=== PATIENT | male | born 1945 | race Caucasian/White ===

== ENCOUNTER 2017-01-14 11:51 | Outpatient (CLI) | payer MEDICARE, OTHER ==
[~2017-01-14] VITALS: Ht 182.9 cm; Wt 101.6 kg
[~2017-01-14 11:51] MED LIST: ALBU17AE23 IH; ALPR0.5T PO; ALPR1TAB PO; BUDE6HFA IH; CALC-250 PO; CARB1TAB6 PO; CETI5TAB6 PO; D50KC PO; DOXY100C2 PO; FELO10TA31 PO; FLC1T PO; GABA300C PO; GEMF600T PO; GFN600TCR PO; HYDR-2890 PO; HYDR-3720 PO; LEVE500T6 PO; LEVO75TA57 PO; LOVA10TA PO; LSNP10T PO; NFPRILOC40 PO; OMEP-10 PO; RISP0.5T2 PO; RSP.25T PO; RSP1T PO; SERT50TA PO; SRTR100T PO
[2017-01-14] MEDS ORDERED: PRAV10TA PO (12:11)
[2017-01-14] MEDS ORDERED: LEVE750T5 PO (12:11)
[2017-01-14 12:12] VITALS: BP 122/82
== END 2017-01-14 12:25 | disposition home or self-care (01) ==
LOC: PREOP 11:51
PROVIDERS: ATTEND Surgery
DX: Z01.818 Encounter for other preprocedural examination (principal); Z11.2 Encounter for screening for other bacterial diseases; C44.529 Squamous cell carcinoma of skin of other part of trunk
CPT/HCPCS: 87081

== ENCOUNTER 2017-01-16 07:52 | Day surgery (SDC) | payer MEDICARE, OTHER ==
[~2017-01-16] VITALS: Ht 182.9 cm; Wt 101.6 kg
[~2017-01-16 07:52] MED LIST changes: +LEVE750T5 PO; +PRAV10TA PO
[2017-01-16] MEDS ORDERED: ceFAZolin 2 GM/50 ML NS 50 ML ONE (08:03)
[2017-01-16] MEDS ORDERED: ceFAZolin 2 GM/NS 50 ML IV ONE (08:15)
[2017-01-16] MEDS ORDERED: CATHETER FLUSH 10 ML SYR IV PRN (08:15)
[2017-01-16 08:23] VITALS: BP 167/101
[2017-01-16] MEDS ORDERED: BUP/EPI 0.5% 1:200,000 (MARCAINE) 10ML VIAL IJ ONE (08:24)
[2017-01-16] MEDS: LACTATED RINGERS 1,000 ML IV PRN ×2 (08:42→10:24)
[2017-01-16] MEDS ORDERED: FAMOTIDINE 20MG/2ML IV (PEPCID) IV ONE (08:45)
--- NOTE | 2017-01-16 09:01 | Progress Note-Pre Operative ---
Pre-Operative Progress Note H&P Reviewed The H&P was reviewed, patient examined and no changes noted. 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
[2017-01-16] MEDS ORDERED: MIDAZOLAM 2 MG/2 ML (VERSED) VIAL ONE (09:15)
[2017-01-16] MEDS ORDERED: fentaNYL INJECTION 100 MCG/2 ML AMP ONE (09:15)
[2017-01-16] MEDS ORDERED: LACTATED RINGERS 1,000 ML IV ONE (09:56)
[2017-01-16] MEDS ORDERED: PROPOFOL INJECTION 50 ML IV ONE (09:56)
[2017-01-16] MEDS ORDERED: proPOfol 200 MG/20 ML (DIPRIVAN) VIAL IV ONE (09:56)
[2017-01-16] MEDS ORDERED: morphine INJ 10 MG/ML 1ML (SYR OR VIAL) IVP PRN (10:00)
[2017-01-16] MEDS ORDERED: MEPERIDINE (DEMEROL) INJ 50 MG/ML IVP PRN (10:00)
[2017-01-16] MEDS ORDERED: ONDANSETRON 4 MG/2 ML (SDV) Z0FRAN IVP PRN (10:00)
[2017-01-16 10:50] VITALS: BP 151/99
--- NOTE | 2017-01-16 10:50 | Operative Report ---
Operative Report Date of Procedure/Surgery Jan 16, 2017 Surgeon (s) NICHOLE NEVES MD Marina Manager (s): not applicable Post-Operative Diagnosis 1.invasive squamous cell carcinoma chest wall 2. 1 cm lesion left ear Procedure Performed 1.excision of lesion left ear 2. Excision of invasive squamous cell carcinoma chest wall with frozen section Description of Procedure Anesthesia Type: MAC Estimated blood loss (mL): minimal Specimen(s) collected/removed skin lesion, left ear. Squamous cell carcinoma from chest wall Description of the Procedure Indication for procedure: Punch biopsy of a 3 cm lesion over his anterior chest wall was confirmed to be an in situ squamous cell carcinoma. He was offered formal excision with frozen section to rule out invasive tumor and ensure negative margins. During the immediate preoperative evaluation, the patient requested excision of a recurrent lesion over the left ear, concerning for a basal cell carcinoma. I agreed to do so. Informed consent was obtained after reviewing the procedures and complications of hematoma, postoperative wound infection and local recurrence. Description of the procedures: 1. Excision of lesion left ear: After adequate antiseptic preparation, local anesthesia was achieved using 0.25 percent Marcaine with epinephrine. Our BREWING TECHNICIAN administered sedation as well. Ancef was administered intravenously as prophylaxis against wound infection. An elliptical incision 2 cm long by 1/2 cm wide was made and the lesion excised. It was oriented with silk sutures and sent for formal histologic examination. Hemostasis was achieved using cautery and the defect closed using interrupted 6-0 nylon sutures. A nonadherent dressing was then applied. 2. Excision of squamous cell carcinoma left chest wall with frozen section: Local anesthesia was achieved in a similar fashion. An elliptical incision, 7 cm long by 4 cm wide was made and the lesion excised to the subcutaneous tissue. It was oriented with silk sutures and sent for histologic examination. Pathologist confirmed an invasive squamous cell carcinoma with negative margins. The edges of the incision were then closed using a combination of 5-0 nylon in a continuous fashion and interrupted 4-0 nylon at the center. A nonadherent dressing was then applied. He tolerated both procedures well and was taken back to the nursing area in a stable condition. Ripley, sponges and instruments were correct at the end of the operation Findings of the Procedure please read the operative report Allergies and Home Medications Allergies Coded Allergies: No Known Drug Allergies (Unverified , 08/19/11) Home Medications Albuterol 17 Gm Aerosol, 17 GM IH PRN, (Reported) Alprazolam 1 Mg Tab.sr.24h, 1 MG PO DAILY, (Reported) Alprazolam 0.5 Mg Tablet, 0.5 MG PO 1200, (Reported) Budesonide/Formoterol Fumarate 10.2 Gm Hfa.aer.ad, 10.2 GM IH 2 puffs in am, ( Reported) Calcium Carbonate/Vitamin D3 1 Each Tablet, 1 EACH PO DAILY, (Reported) Carbidopa/Levodopa 1 Each Tablet, 1 EACH PO QID, (Reported) Cetirizine Hcl 5 Mg Tablet, 5 MG PO DAILY PRN for SINUS ALLERGIES, (Reported) Ergocalciferol 50,000 Unit Capsule, 50,000 UNIT PO Q 4 DAYS, (Reported) Felodipine 10 Mg Tab.sr.24h, 10 MG PO DAILY, (Reported) Folic Acid 1 Mg Tab, 1 MG PO DAILY, (Reported) Gemfibrozil 600 Mg Tablet, 600 MG PO BID, (Reported) Guaifenesin 600 Mg Tab, 600 MG PO BID PRN for CONGESTION, (Reported) Hydrocodone Bit/Acetaminophen 1 Each Tablet, 1 EACH PO Q6HR PRN, (Reported) Levetiracetam 750 Mg Tablet, 750 MG PO BID, (Reported) Levothyroxine Sodium 75 Mcg Tablet, 112 MCG PO DAILY, (Reported) Lisinopril 10 Mg Tab, 10 MG PO DAILY, (Reported) Omeprazole 40 Mg Capsule.dr, 40 MG PO DAILY, (Reported) Pravastatin Sodium 10 Mg Tablet, 10 MG PO HS, (Reported) Risperidone 0.5 Mg Tablet, 1.5 MG PO BID, (Reported) Sertraline Hcl 50 Mg Tablet, 50 MG PO BID, (Reported) Sertraline Hcl 100 Mg Tab, 100 MG PO BID, (Reported) NICHOLE NEVES MD Jan 16, 2017 10:50 am
[2017-01-16] MEDS ORDERED: HYDR-3820 PO (10:52)
--- NOTE | 2017-01-16 10:53 | Discharge Inst-Simple/Standard ---
Discharge Inst-Standard Discharge Medications New, Converted or Re-Newed RX: RX on Chart Patient Instructions/Follow Up Plan of Care/Instructions/FU: outer dressing off in 48 hours. Steri-Strips to stay. Follow-up with my nurse in 2 weeks for suture removal Activity as Tolerated: Yes Discharge Diet: No Restrictions NICHOLE NEVES MD Jan 16, 2017 10:53 am
[2017-01-16 11:20] VITALS: BP 167/99
[2017-01-16 11:50] VITALS: BP 167/99
== END 2017-01-16 11:50 | disposition home or self-care (01) ==
LOC: SDC 07:52
PROVIDERS: ATTEND Surgery
DX: C44.529 Squamous cell carcinoma of skin of other part of trunk (principal); L57.0 Actinic keratosis; L99 Other disorders of skin and subcutaneous tissue in diseases classified elsewhere; F17.210 Nicotine dependence, cigarettes, uncomplicated; J44.9 Chronic obstructive pulmonary disease, unspecified; G20 Parkinson's disease; Z86.73 Personal history of transient ischemic attack (TIA), and cerebral infarction without residual deficits; K44.9 Diaphragmatic hernia without obstruction or gangrene; K21.9 Gastro-esophageal reflux disease without esophagitis; Z79.899 Other long term (current) drug therapy
CPT/HCPCS: 88305; 88331; 88332

== ENCOUNTER → 2017-09-27 | Outpatient (CLI) | payer MEDICARE, OTHER ==
[~2017-09-27] MED LIST changes: +HYDR-3820 PO
--- NOTE | 2017-09-27 12:08 | Diagnostic Imaging Report ---
INDICATION: Cough. TIME OF EXAMINATION: 12:40 p.m. COMPARISON: Comparison is made with prior study from 08/19/2011. FINDINGS: The lungs are hyperinflated consistent with COPD. The heart size is normal. No infiltrate, effusion or pneumothorax is detected. IMPRESSION: COPD. No acute features detected. Dictated by: Dictated on workstation # [id number]
== END ==
LOC: RAD 11:30
PROVIDERS: ATTEND Internal Medicine
DX: J44.9 Chronic obstructive pulmonary disease, unspecified (principal)
CPT/HCPCS: 71046

== ENCOUNTER 2018-03-10 14:06 | Emergency (ER) | payer MEDICARE, OTHER ==
[~2018-03-10] VITALS: Ht 182.9 cm; Wt 90.7 kg
--- OUTSIDE RECORDS SUMMARY | 2018-03-10 14:12 | XMS REPORT | Continuity of Care Document ---
Author Author [facility] Organization [facility] Address Unknown Phone Unavailable Allergies Active Description Code Type Severity Reaction Onset Reported/Identified Relationship to Patient Clinical Status Yes No Known Drug Allergies [id number] Drug Allergy Unknown N/A 08/19/2011 Medications There is no data. 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 08/21/2011 Ot 401.9 HYPERTENSION NOS 08/21/2011 Ot 491.21 OBSTR CHRONIC BRONCHITIS, W (ACUTE) EXAC 08/21/2011 Ot 530.81 ESOPHAGEAL REFLUX 08/21/2011 Ot V11.3 HX OF ALCOHOLISM 08/21/2011 Ot V12.59 HX- CIRCULATORY SYST DIS,NEC 06/11/2013 CHARLENE WOODS, RICARDO Duffy Ot 296.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 06/11/2013 RICARDO CHANG MD Ot 401.9 HYPERTENSION NOS 06/11/2013 RICARDO CHANG MD Ot 682.3 CELLULITIS OF ARM 06/11/2013 RICARDO CHANG MD Ot 729.5 PAIN IN LIMB 06/11/2013 RICARDO CHANG MD Ot V58.69 OTH MED,LT,CURRENT USE 06/22/2013 DONALDO CARSON MD Ot 593.9 RENAL URETERAL DIS NOS 09/03/2014 BRAXTON DO BRANDY Alex Ot 401.9 09/03/2014 BRAXTON DO BRANDY Alex Ot 780.79 09/03/2014 BRAXTON DO, BRANDY Alex Ot 786.09 10/06/2014 BRAXTON DO BRANDY Johnson Ot 401.9 10/06/2014 BRAXTON DO BRANDY Alex Ot 780.79 10/06/2014 BRAXTONBRANDY DENG DO Ot 786.09 10/12/2014 BRAXTONBRANDY DENG DO Ot 496 10/12/2014 BRAXTON DO BRANDY Johnson Ot 786.09 11/23/2014 Ot 780.79 11/23/2014 Ot 786.09 11/23/2014 Ot 593.9 11/23/2014 BRAXOTN DO BRANDY Alex Ot 401.9 11/23/2014 BRAXTON DO BRANDY Johnson Ot 780.79 11/23/2014 BRAXTON DO BRANDY Alex Ot 786.09 11/23/2014 BRAXTONBRANDY DENG DO Ot 496 11/23/2014 BRANDY BRAXTON DO Ot 786.09 12/15/2014 BRANDY BRAXTON DO Ot 433.10 12/15/2014 BRANDY BRAXTON DO Ot 433.30 01/27/2015 BRANDY BRAXTON DO Ot 433.10 01/27/2015 BRANDY BRAXOTN DO Ot 433.30 01/14/2017 Ot 593.9 RENAL URETERAL DIS NOS 01/14/2017 BRANDY BRAXTON DO Ot 401.9 HYPERTENSION NOS 01/14/2017 BRANDY BRAXTON DO Ot 780.79 OTH MALAISE FATIGUE 01/14/2017 BRANDY BRAXTON DO Ot 786.09 RESPIRATORY ABNORM NEC 01/14/2017 BRANDY BRAXTON DO Ot 496 CHR AIRWAY OBSTRUCT NEC 01/14/2017 BRANDY BRAXTON DO Ot 786.09 RESPIRATORY ABNORM NEC 01/14/2017 BRANDY BRAXTON DO Ot 433.10 CAROTID ARTERY OCCLUSION W O CEREBRAL IN 01/14/2017 BRANDY BRAXTON DO Ot 433.30 MULT BILTRAL ARTERY OCCLUSION WO CEREBRA 01/16/2017 NICHOLE NEVES MD Ot 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 01/16/2017 NEVES MD, NICHOLE M Ot F17.210 NICOTINE DEPENDENCE, CIGARETTES, UNCOMPL 01/16/2017 NICHOLE NEVES MD Ot G20 PARKINSON'S DISEASE 01/16/2017 NICHOLE NEVES MD Ot J44.9 CHRONIC OBSTRUCTIVE PULMONARY DISEASE, U 01/16/2017 NICHOLE NEVES MD Ot K21.9 GASTRO-ESOPHAGEAL REFLUX DISEASE WITHOUT 01/16/2017 NICHOLE NEVES MD Ot K44.9 DIAPHRAGMATIC HERNIA WITHOUT OBSTRUCTION 01/16/2017 NICHOLE NEVES MD Ot L57.0 ACTINIC KERATOSIS 01/16/2017 NICHOLE NEVES MD Ot L99 OTH DISORDERS OF SKIN, SUBCU IN DISEASES 01/16/2017 NICHOLE NEVES MD Ot Z79.899 OTHER [facility] (CURRENT) DRUG THERAPY 01/16/2017 NICHOLE NEVES MD Ot Z86.73 PRSNL HX OF TIA (TIA), AND CEREB INFRC W 01/18/2017 NICHOLE NEVES MD Ot 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 01/18/2017 NICHOLE NEVES MD Ot F17.210 NICOTINE DEPENDENCE, CIGARETTES, UNCOMPL 01/18/2017 NICHOLE NEVES MD Ot G20 PARKINSON'S DISEASE 01/18/2017 NICHOLE NEVES MD, Ot J44.9 CHRONIC OBSTRUCTIVE PULMONARY DISEASE, U 01/18/2017 NICHOLE NEVES MD Ot K21.9 GASTRO-ESOPHAGEAL REFLUX DISEASE WITHOUT 01/18/2017 NICHOLE NEVES MD Ot K44.9 DIAPHRAGMATIC HERNIA WITHOUT OBSTRUCTION 01/18/2017 NICHOLE NEVES MD Ot L57.0 ACTINIC KERATOSIS 01/18/2017 NICHOLE NEVES MD Ot Z79.899 OTHER [facility] (CURRENT) DRUG THERAPY 01/18/2017 NICHOLE NEVES MD Ot Z86.73 PRSNL HX OF TIA (TIA), AND CEREB INFRC W 03/24/2017 NICHOLE NEVES MD Ot 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 03/24/2017 NICHOLE NEVES MD Ot F17.210 NICOTINE DEPENDENCE, CIGARETTES, UNCOMPL 03/24/2017 NICHOLE NEVES MD Ot G20 PARKINSON'S DISEASE 03/24/2017 NICHOLE NEVES MD Ot J44.9 CHRONIC OBSTRUCTIVE PULMONARY DISEASE, U 03/24/2017 NICHOLE NEVES MD Ot K21.9 GASTRO-ESOPHAGEAL REFLUX DISEASE WITHOUT 03/24/2017 NICHOLE NEVES MD Ot K44.9 DIAPHRAGMATIC HERNIA WITHOUT OBSTRUCTION 03/24/2017 NICHOLE NEVES MD, Ot L57.0 ACTINIC KERATOSIS 03/24/2017 NIHCOLE NEVES MD Ot L99 OTH DISORDERS OF SKIN, SUBCU IN DISEASES 03/24/2017 NICHOLE NEVES MD Ot Z79.899 OTHER [facility] (CURRENT) DRUG THERAPY 03/24/2017 NICHOLE NEVES MD, Ot Z86.73 PRSNL HX OF TIA (TIA), AND CEREB INFRC W 09/30/2017 BRANDY BRAXTON DO, Ot J44.9 CHRONIC OBSTRUCTIVE PULMONARY DISEASE, U 09/30/2017 BRANDY BRAXTON DO, Ot J44.9 CHRONIC OBSTRUCTIVE PULMONARY DISEASE, U 10/03/2017 BRANDY BRAXTON DO, Ot J44.9 CHRONIC OBSTRUCTIVE PULMONARY DISEASE, U 10/21/2017 BRANDY BRAXTON DO, Ot J44.9 CHRONIC OBSTRUCTIVE PULMONARY DISEASE, U Procedures There is no data. Results Test Result Range Methicillin resistant Staphylococcus aureus (MRSA) screening culture - 12:23 Methicillin resistant Staphylococcus aureus (MRSA) screening culture NEG NRG Encounters ACCT No. Visit Date/Time Discharge Status Pt. Type Provider Facility Loc./Unit Complaint [id number] 09/27/2017 11:30:00 09/27/2017 23:59:59 CLS Outpatient BRANDY BRAXTON DO [facility] RAD R05 [id number] 01/16/2017 07:52:00 01/16/2017 11:50:00 DIS Outpatient NICHOEL NEVES MD [facility] SDC SQUAMOUS CELL CARCINOMA [id number] 01/14/2017 11:51:00 01/14/2017 12:25:00 DIS Outpatient NICHOLE NEVES MD [facility] PREOP SQUAMOUS CELL CARCINOMA [id number] 11/23/2014 09:44:00 11/23/2014 23:59:59 CLS Outpatient BRANDY BRAXTON DO [facility] RAD L NICOLE-PORESIS- TROUSIENT [id number] 09/08/2014 13:42:00 09/08/2014 23:59:59 CLS Outpatient BRANDY BRAXTON DO [facility] RT DYSPENA COPD [id number] 08/31/2014 06:31:00 08/31/2014 23:59:59 CLS Outpatient BRANDY BRAXTON DO [facility] CARD DYPSNEA,MALAISE, FATIGUE [id number] 03/26/2013 09:36:00 06/22/2013 00:01:00 DIS Outpatient YAMILETH WOODS, DONALDO Campbell [facility] RAD RENAL INSUFFICIENCY [id number] 06/11/2013 18:26:00 06/11/2013 21:07:00 DIS Emergency CHARLENE WOODS, RICARDO Duffy [facility] ER R SHOULDER PAIN [id number] 11/23/2014 09:43:00 Document Registration [id number] 06/23/2013 10:45:00 Document Registration [id number] 08/19/2011 15:00:00 Document Registration [id number] 07/14/2009 05:42:00 Document Registration [id number] 06/07/2009 13:46:00 Document Registration [id number] 11/23/2014 09:44:22 ACT Document Registration
[2018-03-10] MEDS ORDERED: ACETAMINOPHEN 500 MG TAB (TYLENOL) PO ONE (14:15)
[2018-03-10] MEDS ORDERED: IBUPROFEN 800 MG (MOTRIN) TAB PO ONE (14:15)
--- NOTE | 2018-03-10 14:15 | ED Fever ---
History of Present Illness General Stated Complaint: MENINGITIS Source: patient Exam Limitations: no limitations History of Present Illness Date Seen by Provider: Mar 10, 2018 Time Seen by Provider: 14:18 Initial Comments To ER per private vehicle from Dr. Cormier's clinic with reports of sudden onset fever, Rigors cough and shortness of breath this morning. He was noted to be delirious from the clinic which is unusual for him as he is normally alert and oriented. Additionally, the patient's states that he owns several chickens and has had a few chickens over the course of the past week. Dr. Cormier was concerned about possibility of jarrod influenza Timing/Duration: just prior to arrival Fever Quality: greater than 100.5 F Associated Symptoms: confusion; No stiff neck Allergies and Home Medications Allergies Coded Allergies: No Known Drug Allergies (Unverified , 08/19/11) Home Medications Albuterol 17 Gm Aerosol, 17 GM IH PRN, (Reported) Alprazolam 1 Mg Tab.sr.24h, 1 MG PO DAILY, (Reported) Alprazolam 0.5 Mg Tablet, 0.5 MG PO 1200, (Reported) Budesonide/Formoterol Fumarate 10.2 Gm Hfa.aer.ad, 10.2 GM IH 2 puffs in am, ( Reported) Calcium Carbonate/Vitamin D3 1 Each Tablet, 1 EACH PO DAILY, (Reported) Carbidopa/Levodopa 1 Each Tablet, 1 EACH PO QID, (Reported) Cetirizine Hcl 5 Mg Tablet, 5 MG PO DAILY PRN for SINUS ALLERGIES, (Reported) Ergocalciferol 50,000 Unit Capsule, 50,000 UNIT PO Q 4 DAYS, (Reported) Felodipine 10 Mg Tab.sr.24h, 10 MG PO DAILY, (Reported) Folic Acid 1 Mg Tab, 1 MG PO DAILY, (Reported) Gemfibrozil 600 Mg Tablet, 600 MG PO BID, (Reported) Guaifenesin 600 Mg Tab, 600 MG PO BID PRN for CONGESTION, (Reported) Hydrocodone Bit/Acetaminophen 1 Each Tablet, 1 EACH PO Q6HR PRN, (Reported) Hydrocodone/Acetaminophen 1 Each Tablet, 1 TAB PO Q4H PRN for PAIN-MILD TO MODERATE Prescribed by: NICHOLE NEVES on 01/16/17 1052 Levetiracetam 750 Mg Tablet, 750 MG PO BID, (Reported) Levothyroxine Sodium 75 Mcg Tablet, 112 MCG PO DAILY, (Reported) Lisinopril 10 Mg Tab, 10 MG PO DAILY, (Reported) Omeprazole 40 Mg Capsule.dr, 40 MG PO DAILY, (Reported) Pravastatin Sodium 10 Mg Tablet, 10 MG PO HS, (Reported) Risperidone 0.5 Mg Tablet, 1.5 MG PO BID, (Reported) Sertraline Hcl 50 Mg Tablet, 50 MG PO BID, (Reported) Sertraline Hcl 100 Mg Tab, 100 MG PO BID, (Reported) Patient Home Medication List Home Medication List Reviewed: Yes Review of Systems Review of Systems Constitutional: see HPI, chills, fever, malaise, weakness EENTM: see HPI, nose congestion Respiratory: see HPI, cough, short of breath Genitourinary: no symptoms reported Musculoskeletal: no symptoms reported Skin: no symptoms reported Psychiatric/Neurological: See HPI, Other (confusion) Hematologic/Lymphatic: No Symptoms Reported Immunological/Allergic: no symptoms reported Past [place]n-Iyngys-[place] Hx Patient Social History Type Used: Cigarettes Recent Hopitalizations: No Immunizations Up To Date Date of Pneumonia Vaccine: Mar 10, 2010 Date of Influenza Vaccine: Apr 10, 2013 Past Medical History COPD, Emphysema Reproductive Disorders: No Renal Failure Gastroesophageal Reflux Arthritis Hypothyroidsim Bipolar Physical Exam Vital Signs - First Documented 03/10/18 14:09 Temp 101.4 Pulse 90 Resp 20 B/P (MAP) 162/103 (122) Pulse Ox 100 O2 Delivery Simple Mask Capillary Refill : Height: 6'0.00" Weight: 224lbs. 0.0oz. [id number]; 30.4 BMI Method: General Appearance: WD/WN, no apparent distress, other (dry mucous membranes, confused, rigors) Eyes: Bilateral Eye Normal Inspection, Bilateral Eye PERRL, Bilateral Eye EOMI HEENT: PERRL/EOMI, normal ENT inspection Neck: non-tender, full range of motion Respiratory: normal breath sounds, no respiratory distress, no accessory muscle use Cardiovascular: regular rate, rhythm, no murmur Neurologic/Psychiatric: alert, normal mood/affect, oriented x 3 Skin: normal color, warm/dry Focused Exam Lactate Level 03/10/18 14:27: Lactic Acid Level 1.85 Lactic Acid Level Laboratory Tests Test 03/10/18 14:27 Lactic Acid Level 1.85 MMOL/L (0.50-2.00) Progress/Results/Core Measures Suspected Sepsis SIRS Temperature: Pulse: Respiratory Rate: Laboratory Tests 03/10/18 14:27: White Blood Count 9.7 Blood Pressure / Mean: 03/10/18 14:27: Lactic Acid Level 1.85 Laboratory Tests 03/10/18 14:27: Creatinine 1.68H, Platelet Count 152, Total Bilirubin 0.6 03/10/18 15:03: INR Comment 1.1 Results/Orders Lab Results Laboratory Tests Test 03/10/18 14:27 03/10/18 15:03 03/10/18 15:49 Range/Units White Blood Count 9.7 4.3-11.0 10^3/uL Red Blood Count 4.00 L 4.35-5.85 10^6/uL Hemoglobin 13.4 13.3-17.7 G/DL Hematocrit 40 40-54 % Mean Corpuscular Volume 99 80-99 FL Mean Corpuscular Hemoglobin 34 25-34 PG Mean Corpuscular Hemoglobin Concent 34 32-36 G/DL Red Cell Distribution Width 13.5 10.0-14.5 % Platelet Count 152 130-400 10^3/uL Mean Platelet Volume 10.5 H 7.4-10.4 FL Neutrophils (%) (Auto) 90 H 42-75 % Lymphocytes (%) (Auto) 4 L 12-44 % Monocytes (%) (Auto) 6 0-12 % Eosinophils (%) (Auto) 0 0-10 % Basophils (%) (Auto) 0 0-10 % Neutrophils # (Auto) 8.7 H 1.8-7.8 X 10^3 Lymphocytes # (Auto) 0.4 L 1.0-4.0 X 10^3 Monocytes # (Auto) 0.6 0.0-1.0 X 10^3 Eosinophils # (Auto) 0.0 0.0-0.3 10^3/uL Basophils # (Auto) 0.0 0.0-0.1 10^3/uL Neutrophils % (Manual) 86 % Lymphocytes % (Manual) 8 % Monocytes % (Manual) 5 % Basophils % (Manual) 1 % Blood Morphology Comment NORMAL Sodium Level 137 135-145 MMOL/L Potassium Level 3.7 3.6-5.0 MMOL/L Chloride Level 101 98-107 MMOL/L Carbon Dioxide Level 23 21-32 MMOL/L Anion Gap 13 5-14 MMOL/L Blood Urea Nitrogen 16 7-18 MG/DL Creatinine 1.68 H 0.60-1.30 MG/DL Estimat Glomerular Filtration Rate 40 BUN/Creatinine Ratio 10 Glucose Level 88 70-105 MG/DL Lactic Acid Level 1.85 0.50-2.00 MMOL/L Calcium Level 9.2 8.5-10.1 MG/DL Corrected Calcium 8.9 8.5-10.1 MG/DL Total Bilirubin 0.6 0.1-1.0 MG/DL Aspartate Amino Transf (AST/SGOT) 54 H 5-34 U/L Alanine Aminotransferase (ALT/SGPT) 47 0-55 U/L Alkaline Phosphatase 89 40-136 U/L Total Protein 7.7 6.4-8.2 GM/DL Albumin 4.4 3.2-4.5 GM/DL Prothrombin Time 14.4 12.2-14.7 SEC INR Comment 1.1 0.8-1.4 Activated Partial Thromboplast Time 28 24-35 SEC Urine Color YELLOW Urine Clarity CLEAR Urine pH 6 5-9 Urine Specific [place] 1.010 L 1.016-1.022 Urine Protein 3+ H NEGATIVE Urine Glucose (UA) NEGATIVE NEGATIVE Urine Ketones 1+ H NEGATIVE Urine Nitrite NEGATIVE NEGATIVE Urine Bilirubin NEGATIVE NEGATIVE Urine Urobilinogen 1 NORMAL MG/DL Urine Leukocyte Esterase 1+ H NEGATIVE Urine RBC (Auto) 1+ H NEGATIVE Urine RBC 2-5 H /HPF Urine WBC 0-2 /HPF Urine Squamous Epithelial Cells 0-2 /HPF Urine Crystals NONE /LPF Urine Bacteria NONE /HPF Urine Casts NONE /LPF Urine Mucus NEGATIVE /LPF Urine Culture Indicated NO Micro Results Microbiology 03/10/18 Influenza Types A,B Antigen (KEARA) - Final, Complete My Orders Orders - SUKH BAER APRN Cbc With Automated Diff (03/10/18 14:11) Comprehensive Metabolic Panel (03/10/18 14:11) Ua Culture If Indicated (03/10/18 14:11) Influenza A And B Antigens (03/10/18 14:11) Blood Culture (03/10/18 14:11) Lactic Acid Analyzer (03/10/18 14:11) Iv Heplock-Insert (Order) (03/10/18 14:11) Acetaminophen Tablet (Tylenol Tablet) (03/10/18 14:15) Ibuprofen Tablet (Motrin Tablet) (03/10/18 14:15) Virus Culture (03/10/18 14:16) Ns Iv 1000 Ml (Sodium Chloride 0.9%) (03/10/18 14:30) Chest 1 View, Ap/Pa Only (03/10/18 14:23) Protime With Inr (03/10/18 14:23) Partial Thromboplastin Time (03/10/18 14:23) Manual Differential (03/10/18 14:27) Ct Head Wo (03/10/18 14:48) Mri Brain W/Wo Contrast (03/10/18 15:45) Lorazepam Injection (Ativan Injection) (03/10/18 16:15) Lorazepam Injection (Ativan Injection) (03/10/18 16:11) Gadobutrol Inj (Radiology) (Gadavist Inj (03/10/18 17:15) Medications Given in ED Current Medications Medications Dose Ordered Sig/Linette Route Start Time Stop Time Status Last Admin Dose Admin Acetaminophen 1,000 mg ONCE ONCE PO 03/10/18 14:15 03/10/18 14:16 DC 03/10/18 14:49 1,000 MG Gadobutrol 7.5 mmol ONCE ONCE IV 03/10/18 17:15 03/10/18 17:16 DC 03/10/18 05:05 4 MMOL Ibuprofen 800 mg ONCE ONCE PO 03/10/18 14:15 03/10/18 14:16 DC 03/10/18 14:49 800 MG Lorazepam 0.5 mg ONCE PRN IVP 03/10/18 16:15 03/10/18 16:21 0.5 MG Vital Signs/I&O 03/10/18 14:09 Temp 101.4 Pulse 90 Resp 20 B/P (MAP) 162/103 (122) Pulse Ox 100 O2 Delivery Simple Mask Capillary Refill : Diagnostic Imaging Diagonstic Imaging: CT Comments NAME: ZAFAR ULRICH [facility] REC#: [id number] PT STATUS: REG ER : 1945 PHYSICIAN: SUKH BAER APRN ADMIT DATE: 03/10/18/ER Draft Date of Exam:03/10/18 CT HEAD WO INDICATION: Altered mental status. Fever. Weakness in the legs. TECHNIQUE: Routine non contrast-enhanced axial images were obtained from the skull base to the vertex. COMPARISON: 11/23/2014. FINDINGS: Subtle 4 mm hyperdensity is noted within the region of the posterior limb of the internal capsule superiorly on the right (image 13, series 2). There is some asymmetric surrounding hypodensity as well extending into the centrum semiovale. Findings could be on the basis of punctate intraparenchymal hemorrhage with early or mild surrounding parenchymal edema. No other acute intracranial abnormality is seen. Ventricles and cortical sulci are otherwise diffusely prominent consistent with age-related parenchymal volume loss. There is no mass effect or midline shift. There are also scattered and confluent areas of decreased attenuation within the periventricular and subcortical deep white matter consistent with chronic small vessel ischemic changes. There is no loss of burnette-white matter junction differentiation to suggest acute territorial infarct. No other extra-axial masses or fluid collections are seen. Left-sided craniectomy defect is noted anterosuperiorly. Bony flap appears to be in appropriate position. The visualized paranasal sinuses are unremarkable. The mastoid air cells are clear. IMPRESSION: 1. Subtle findings concerning for early or small acute intraparenchymal hemorrhage within the posterior right basal ganglia with mild surrounding parenchymal edema. Short-interval follow-up is advised. 2. Chronic small vessel ischemic changes in the deep white matter. Results were called to Sukh Baer by Dr. Pillai at 1545 hours on 03/10/2018. Dictated on workstation # [id number] Dict: 03/10/18 1536 Trans: 03/10/18 1552 [id number] Interpreted by: CAITY PILLAI MD Electronically signed by: NAME: ZAFAR ULRICH [facility] REC#: [id number] PT STATUS: REG ER : 1945 PHYSICIAN: SUKH BAER APRN ADMIT DATE: 03/10/18/ER Draft Date of Exam:03/10/18 MRI BRAIN W/WO CONTRAST PROCEDURE: MR imaging of the brain with and without contrast. TECHNIQUE: Multiplanar, multisequence MR imaging of the brain was performed with and without contrast. INDICATION: Altered mental status. Fever and weakness. History of prior aneurysm surgery in 2004. COMPARISON: Comparison is made with a CT examination from March 10, 2018. FINDINGS: There is a significant degree of artifact, particularly within the anterior aspect of the brain related to the patient's previous craniotomy plates. The visualized portion of the brain demonstrates no evidence of diffusion restriction or acute ischemia. There is no significant diffusion signal about the previous hyperdensity described on head CT. There is some adjacent gliosis. Centrally, there appears to be some susceptibility within this region. This may reflect a tiny recent microhemorrhage. Allowing for artifact, there are no other findings of acute intracranial hemorrhage. There is global volume loss. There are advanced chronic microvascular changes present within the periventricular white matter and to a lesser extent the subcortical white matter. The ventricles are prominent but commensurate with the degree of volume loss present. Asymmetry of the lateral ventricles is unchanged dating back to 2014. There is no acute extra-axial collection. The basilar cisterns appear patent. There is no acute posterior fossa abnormality. The mastoid air cells appear clear. The paranasal sinuses and orbits are poorly evaluated due to artifact. The major expected arterial and dural venous sinus flow voids appear preserved. IMPRESSION: 1. Small degree of edema or gliosis surrounding a tiny focus of susceptibility along the posterior aspect of the right external capsule. This correlates with a small region of hyperdensity on the head CT and likely reflects a recent tiny microhemorrhage. 2. There is no diffusion restriction present to suggest acute ischemia. 3. No other findings of hemorrhage evident. 4. Global volume loss with advanced microvascular changes within white matter. 5. Operative changes of previous left convexity craniotomy reportedly performed for previous aneurysm surgery. The major flow voids at the skull base appear preserved on today's exam. Dictated on workstation # [id number] Dict: 03/10/181737 Trans: 03/10/18 [id number] Interpreted by: DUTCH GIL MD Electronically signed by: Departure Communication (Admissions) [id number]-he is still noted to have tremors of all 4 extremities however they have improved. He is sitting up in bed alert but confused. He does reportedly take Sinemet for Parkinson's disease and is supposed to take this 4 times a day but has only taken it once today. I did have him take one of his own Sinemet pills at this time. 1615-patient is now becoming very anxious and agitated stating he is getting out of bed to go smoke a cigarette. 0.5 mg lorazepam IV ordered. 1636- Dr. Cormier's office called [facility] who then called the emergency room to request a nasopharyngeal viral culture kept cold in a viral culture media so this has been collected and sent to lab. Impression Primary Impression: Influenza-like symptoms Additional Impressions: Altered mental status Abnormal brain CT Disposition: 02 XFER SHT-TRM HOSP Condition: Stable Transfer Time Spoke to Accepting Phy: 18:09 Transfer Progress Notes Discussed with hospitalist DR Figueroa at [facility] and Dr Conway neurosurgeon at [facility]. Both of whom agree to accept the patient. Withholding antibiotics at this time. at bedside, updated on plan of care. Departure-Patient Inst. Referrals: BRANDY CORMIER DO (PCP/Family) Primary Care Physician Copy Copies To 1: BRANDY CORMIER PETER J APRN Mar 10, 2018 14:15
[2018-03-10] MEDS ORDERED: NS IV 1000 ML 1,000 ML IV SCH (14:30)
[2018-03-10 14:36] LABS: BASOPHILS % (AUTO) 0 % (0-10); EOSINOPHILS % (AUTO) 0 % (0-10); HEMATOCRIT 40 % (40-54); HEMOGLOBIN 13.4 G/DL (13.3-17.7); LYMPHOCYTES # (AUTO) 0.4 X 10^3 (1.0-4.0); LYMPHOCYTES % (AUTO) 4 % (12-44); MEAN CORPUSCULAR HEMOGLOBIN 34 PG (25-34); MEAN CORPUSCULAR HGB CONC 34 G/DL (32-36); MEAN CORPUSCULAR VOLUME 99 FL (80-99); MEAN PLATELET VOLUME 10.5 FL (7.4-10.4); MONOCYTES # (AUTO) 0.6 X 10^3 (0.0-1.0); MONOCYTES % (AUTO) 6 % (0-12); NEUTROPHILS # (AUTO) 8.7 X 10^3 (1.8-7.8); NEUTROPHILS % (AUTO) 90 % (42-75); PLATELET COUNT 152 10^3/uL (130-400); RED CELL DISTRIBUTION WIDTH 13.5 % (10.0-14.5); WHITE BLOOD COUNT 9.7 10^3/uL (4.3-11.0)
[2018-03-10 14:57] LABS: ALBUMIN 4.4 GM/DL (3.2-4.5); BILIRUBIN,TOTAL 0.6 MG/DL (0.1-1.0); CALCIUM 9.2 MG/DL (8.5-10.1); CREATININE SERUM 1.68 MG/DL (0.60-1.30); POTASSIUM 3.7 MMOL/L (3.6-5.0); TOTAL PROTEIN 7.7 GM/DL (6.4-8.2)
[2018-03-10 14:59] LABS: BASOPHILS % (MANUAL) 1 %; LYMPHOCYTES % (MANUAL) 8 %; MONOCYTES % (MANUAL) 5 %; NEUTROPHILS % (MANUAL) 86 %; RBC MORPH NORMAL
[2018-03-10 15:20] LABS: INR 1.1 (0.8-1.4); PROTHROMBIN TIME PATIENT 14.4 SEC (12.2-14.7)
--- NOTE | 2018-03-10 15:21 | Diagnostic Imaging Report ---
Indication: Meningitis and fever. Time of exam 2:39 PM Correlation is made with prior study from 09/27/2017. The lungs appear hyperinflated consistent with COPD. No infiltrates are seen. No effusion or pneumothorax is detected. Impression: COPD. No other significant abnormality is detected. Dictated by: Dictated on workstation # [id number]
--- NOTE | 2018-03-10 15:53 | Diagnostic Imaging Report ---
INDICATION: Altered mental status. Fever. Weakness in the legs. TECHNIQUE: Routine non contrast-enhanced axial images were obtained from the skull base to the vertex. COMPARISON: 11/23/2014. FINDINGS: Subtle 4 mm hyperdensity is noted within the region of the posterior limb of the internal capsule superiorly on the right (image 13, series 2). There is some asymmetric surrounding hypodensity as well extending into the centrum semiovale. Findings could be on the basis of punctate intraparenchymal hemorrhage with early or mild surrounding parenchymal edema. No other acute intracranial abnormality is seen. Ventricles and cortical sulci are otherwise diffusely prominent consistent with age-related parenchymal volume loss. There is no mass effect or midline shift. There are also scattered and confluent areas of decreased attenuation within the periventricular and subcortical deep white matter consistent with chronic small vessel ischemic changes. There is no loss of burnette-white matter junction differentiation to suggest acute territorial infarct. No other extra-axial masses or fluid collections are seen. Left-sided craniectomy defect is noted anterosuperiorly. Bony flap appears to be in appropriate position. The visualized paranasal sinuses are unremarkable. The mastoid air cells are clear. IMPRESSION: 1. Subtle findings concerning for early or small acute intraparenchymal hemorrhage within the posterior right basal ganglia with mild surrounding parenchymal edema. Short-interval follow-up is advised. 2. Chronic small vessel ischemic changes in the deep white matter. Results were called to Emanuel Baer by Dr. Ocasio at 1545 hours on 03/10/2018. Dictated by: Dictated on workstation # [id number]
[2018-03-10 15:55] LABS: BILIRUBIN,URINE NEGATIVE (NEGATIVE); CLARITY,URINE CLEAR; COLOR,URINE YELLOW; GLUCOSE, URINE (UA) NEGATIVE (NEGATIVE); KETONES,URINE 1+ (NEGATIVE); LEUKOCYTE ESTERASE ,URINE 1+ (NEGATIVE); NITRITE,URINE NEGATIVE (NEGATIVE); PH,URINE 6 (5-9); PROTEIN,URINE 3+ (NEGATIVE); UROBILINOGEN,URINE 1 MG/DL (NORMAL)
[2018-03-10 16:08] LABS: SQUAMOUS EPITHELIAL CELL,UR 0-2 /HPF; WBC,URINE 0-2 /HPF
[2018-03-10] MEDS ORDERED: LORazepam INJ 2 MG/ML (ATIVAN) VIAL ONE (16:11)
[2018-03-10] MEDS ORDERED: LORazepam INJ 2 MG/ML (ATIVAN) VIAL IVP PRN ×2 (16:15→18:45)
[2018-03-10] MEDS ORDERED: GADOBUTROL 7.5 MMOL/7.5 ML (GADAVIST) VIAL IV ONE (17:15)
--- NOTE | 2018-03-10 17:48 | Diagnostic Imaging Report ---
PROCEDURE: MR imaging of the brain with and without contrast. TECHNIQUE: Multiplanar, multisequence MR imaging of the brain was performed with and without contrast. INDICATION: Altered mental status. Fever and weakness. History of prior aneurysm surgery in 2004. COMPARISON: Comparison is made with a CT examination from March 10, 2018. FINDINGS: There is a significant degree of artifact, particularly within the anterior aspect of the brain related to the patient's previous craniotomy plates. The visualized portion of the brain demonstrates no evidence of diffusion restriction or acute ischemia. There is no significant diffusion signal about the previous hyperdensity described on head CT. There is some adjacent gliosis. Centrally, there appears to be some susceptibility within this region. This may reflect a tiny recent microhemorrhage. Allowing for artifact, there are no other findings of acute intracranial hemorrhage. There is global volume loss. There are advanced chronic microvascular changes present within the periventricular white matter and to a lesser extent the subcortical white matter. The ventricles are prominent but commensurate with the degree of volume loss present. Asymmetry of the lateral ventricles is unchanged dating back to 2014. There is no acute extra-axial collection. The basilar cisterns appear patent. There is no acute posterior fossa abnormality. The mastoid air cells appear clear. The paranasal sinuses and orbits are poorly evaluated due to artifact. The major expected arterial and dural venous sinus flow voids appear preserved. IMPRESSION: 1. Small degree of edema or gliosis surrounding a tiny focus of susceptibility along the posterior aspect of the right external capsule. This correlates with a small region of hyperdensity on the head CT and likely reflects a recent tiny microhemorrhage. 2. There is no diffusion restriction present to suggest acute ischemia. 3. No other findings of hemorrhage evident. 4. Global volume loss with advanced microvascular changes within white matter. 5. Operative changes of previous left convexity craniotomy reportedly performed for previous aneurysm surgery. The major flow voids at the skull base appear preserved on today's exam. Dictated by: Dictated on workstation # [id number]
[2018-03-10 19:12] VITALS: BP 130/95
== END 2018-03-10 19:12 | disposition short-term general hospital (02) ==
LOC: EDUNIT# 14:06 → ER 14:07
DX: J10.1 Influenza due to other identified influenza virus with other respiratory manifestations (principal); R41.82 Altered mental status, unspecified; R93.0 Abnormal findings on diagnostic imaging of skull and head, not elsewhere classified; J43.9 Emphysema, unspecified; K21.9 Gastro-esophageal reflux disease without esophagitis; E03.9 Hypothyroidism, unspecified; F31.9 Bipolar disorder, unspecified; Z79.51 Long term (current) use of inhaled steroids
CPT/HCPCS: 36415; 70450; 70553; 71045; 80053; 81000; 83605; 85007; 85027; 85610; 85730; 87040; 87205; 87804

== ENCOUNTER 2018-04-18 18:10 | Emergency (ER) | payer MEDICARE, OTHER ==
[~2018-04-18] VITALS: Ht 182.9 cm; Wt 83.9 kg
[2018-04-18 18:15] VITALS: BP 127/64
--- OUTSIDE RECORDS SUMMARY | 2018-04-18 18:17 | XMS REPORT | Continuity of Care Document ---
Author Author [facility] Organization [facility] Address Unknown Phone Unavailable Allergies Active Description Code Type Severity Reaction Onset Reported/Identified Relationship to Patient Clinical Status Yes No Known Drug Allergies [id number] Drug Allergy Unknown N/A 08/19/2011 Medications There [...] 11/23/2014 Ot 786.09 11/23/2014 Ot 593.9 11/23/2014 BRAXTON DO BRANDY Alex Ot 401.9 11/23/2014 BRAXTON DO BRANDY Johnson Ot 780.79 11/23/2014 BRAXTON DO BRANDY Alex Ot 786.09 11/23/2014 BRAXTONBRANDY DENG DO Ot 496 11/23/2014 BRANDY BRAXTON DO Ot 786.09 12/15/2014 BRANDY BRAXTON DO Ot 433.10 12/15/2014 BRANDY BRAXTON DO Ot 433.30 01/27/2015 BRANDY BRAXTON DO Ot 433.10 01/27/2015 BRANDY BRAXTON DO Ot 433.30 01/14/2017 Ot 593.9 RENAL [...] 01/16/2017 NICHOLE NEVES MD Ot Z79.899 OTHER LONGTERM (CURRENT) DRUG THERAPY 01/16/2017 NICHOLE NEVES MD [...] 01/18/2017 NICHOLE NEVES MD Ot Z79.899 OTHER LONGTERM (CURRENT) DRUG THERAPY 01/18/2017 NICHOLE NEVES MD Ot Z86.73 PRSNL HX OF TIA (TIA), AND CEREB INFRC W 03/24/2017 NICHOLE NEVES MD Ot 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 03/24/2017 NICHOLE NEVES MD Ot F17.210 NICOTINE DEPENDENCE, CIGARETTES, UNCOMPL 03/24/2017 NICHOLE NEVES MD Ot G20 PARKINSON'S DISEASE 03/24/2017 NICHOLE NEVES MD Ot J44.9 CHRONIC OBSTRUCTIVE PULMONARY DISEASE, U 03/24/2017 PURA WOODS, NICHOLE Burgos Ot K21.9 GASTRO-ESOPHAGEAL REFLUX DISEASE WITHOUT 03/24/2017 PURA WOODS, NICHOLE Burgos Ot K44.9 DIAPHRAGMATIC HERNIA WITHOUT OBSTRUCTION 03/24/2017 PURA WOODS, NICHOLE Burgos Ot L57.0 ACTINIC KERATOSIS 03/24/2017 PURA WOODS, NICHOLE Burgos Ot L99 OTH DISORDERS OF SKIN, SUBCU IN DISEASES 03/24/2017 PURA WOODS, NICHOLE Burgos Ot Z79.899 OTHER LONGTERM (CURRENT) DRUG THERAPY 03/24/2017 PURA WOODS, NICHOLE Burgos Ot Z86.73 PRSNL HX OF TIA (TIA), AND CEREB INFRC W 09/30/2017 BRANDY BRAXTON DO, Ot J44.9 CHRONIC OBSTRUCTIVE PULMONARY DISEASE, U 09/30/2017 BRANDY BRAXTON DO, Ot J44.9 CHRONIC OBSTRUCTIVE PULMONARY DISEASE, U 10/03/2017 BRANDY BRAXTON DO, Ot J44.9 CHRONIC OBSTRUCTIVE PULMONARY DISEASE, U 10/21/2017 BRANDY BRAXTON DO, Ot J44.9 CHRONIC OBSTRUCTIVE PULMONARY DISEASE, U 03/10/2018 SUKH MARIE APRN Ot E03.9 HYPOTHYROIDISM, UNSPECIFIED 03/10/2018 SUKH MARIE APRN Ot F31.9 BIPOLAR DISORDER, UNSPECIFIED 03/10/2018 SUKH MARIE APRN Ot J10.1 FLU DUE TO OT IDENT INFLUENZA VIRUS W O 03/10/2018 SUKH MARIE APRN Ot J43.9 EMPHYSEMA, UNSPECIFIED 03/10/2018 SUKH MARIE APRN Ot K21.9 GASTRO-ESOPHAGEAL REFLUX DISEASE WITHOUT 03/10/2018 SUKH MARIE APRN Ot R41.82 ALTERED MENTAL STATUS, UNSPECIFIED 03/10/2018 SUKH MARIE APRN Ot R50.9 FEVER, UNSPECIFIED 03/10/2018 SUKH MARIE APRN Ot R93.0 ABNORMAL FINDINGS ON DX IMAGING OF SKULL 03/10/2018 SUKH MARIE APRN Ot 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 03/22/2018 SUKH MARIE APRN Ot E03.9 HYPOTHYROIDISM, UNSPECIFIED 03/22/2018 SUKH MARIE APRN Ot F31.9 BIPOLAR DISORDER, UNSPECIFIED 03/22/2018 SUKH MARIE APRN Ot J10.1 FLU DUE TO OTH IDENT INFLUENZA VIRUS W O 03/22/2018 SUKH MARIE APRN Ot J43.9 EMPHYSEMA, UNSPECIFIED 03/22/2018 SUKH MARIE APRN Ot K21.9 GASTRO-ESOPHAGEAL REFLUX DISEASE WITHOUT 03/22/2018 SUKH MARIE APRN Ot R41.82 ALTERED MENTAL STATUS, UNSPECIFIED 03/22/2018 SUKH MARIE APRN Ot R50.9 FEVER, UNSPECIFIED 03/22/2018 SUKH MARIE APRN Ot R93.0 ABNORMAL FINDINGS ON DX IMAGING OF SKULL 03/22/2018 SUKH MARIE APRN Ot Z79.51 LONGTERM (CURRENT) USE OF INHALED STERO Procedures There is no data. Results Test Result Range Methicillin resistant Staphylococcus aureus (MRSA) screening culture - 12:23 Methicillin resistant Staphylococcus aureus (MRSA) screening culture NEG NR Influenza virus A and B antigen detection - 03/10/18 14:16 FLU RESULT NEGATIVE FOR INFLUENZA A AND B ANTIGENS BY IA NRG Complete blood count (CBC) with automated white blood cell (WBC) differential - 03/10/18 14:27 Blood leukocytes automated count (number/volume) 9.7 10*3/uL 4.3-11.0 Blood erythrocytes automated count (number/volume) 4.00 10*6/uL 4.35-5.85 Venous blood hemoglobin measurement (mass/volume) 13.4 g/dL 13.3-17.7 Blood hematocrit (volume fraction) 40 % 40-54 Automated erythrocyte mean corpuscular volume 99 [foz_us] 80-99 Automated erythrocyte mean corpuscular hemoglobin (mass per erythrocyte) 34 pg 25-34 Automated erythrocyte mean corpuscular hemoglobin concentration measurement ( mass/volume) 34 g/dL 32-36 Automated erythrocyte distribution width ratio 13.5 % 10.0-14.5 Automated blood platelet count (count/volume) 152 10*3/uL 130-400 Automated blood platelet mean volume measurement 10.5 [foz_us] 7.4-10.4 Automated blood neutrophils/100 leukocytes 90 % 42-75 Automated blood lymphocytes/100 leukocytes 4 % 12-44 Blood monocytes/100 leukocytes 6 % 0-12 Automated blood eosinophils/100 leukocytes 0 % 0-10 Automated blood basophils/100 leukocytes 0 % 0-10 Blood neutrophils automated count (number/volume) 8.7 10*3 1.8-7.8 Blood lymphocytes automated count (number/volume) 0.4 10*3 1.0-4.0 Blood monocytes automated count (number/volume) 0.6 10*3 0.0-1.0 Automated eosinophil count 0.0 10*3/uL 0.0-0.3 Automated blood basophil count (count/volume) 0.0 10*3/uL 0.0-0.1 Blood lactic acid measurement (moles/volume) - 03/10/18 14:27 Blood lactic acid measurement (moles/volume) 1.85 mmol/L 0.50-2.00 Comprehensive metabolic panel - 03/10/18 14:27 Serum or plasma sodium measurement (moles/volume) 137 mmol/L 135-145 Serum or plasma potassium measurement (moles/volume) 3.7 mmol/L 3.6-5.0 Serum or plasma chloride measurement (moles/volume) 101 mmol/L 98-107 Carbon dioxide 23 mmol/L 21-32 Serum or plasma anion gap determination (moles/volume) 13 mmol/L 5-14 Serum or plasma urea nitrogen measurement (mass/volume) 16 mg/dL 7-18 Serum or plasma creatinine measurement (mass/volume) 1.68 mg/dL 0.60-1.30 Serum or plasma urea nitrogen/creatinine mass ratio 10 NRG Serum or plasma creatinine measurement with calculation of estimated glomerular filtration rate 40 NRG Serum or plasma glucose measurement (mass/volume) 88 mg/dL 70-105 Serum or plasma calcium measurement (mass/volume) 9.2 mg/dL 8.5-10.1 Serum or plasma total bilirubin measurement (mass/volume) 0.6 mg/dL 0.1-1.0 Serum or plasma alkaline phosphatase measurement (enzymatic activity/volume) 89 U/L 40-136 Serum or plasma aspartate aminotransferase measurement (enzymatic activity/ volume) 54 U/L 5-34 Serum or plasma alanine aminotransferase measurement (enzymatic activity/volume ) 47 U/L 0-55 Serum or plasma protein measurement (mass/volume) 7.7 g/dL 6.4-8.2 Serum or plasma albumin measurement (mass/volume) 4.4 g/dL 3.2-4.5 CALCIUM CORRECTED 8.9 mg/dL 8.5-10.1 Blood manual differential performed detection - 03/10/18 14:27 Blood monocytes/100 leukocytes 5 % NRG Manual blood segmented neutrophils/100 leukocytes 86 % NRG Manual blood lymphocytes/100 leukocytes 8 % NRG Manual blood basophils/100 leukocytes 1 % NRG Blood erythrocyte morphology finding identification NORMAL NRG Bacterial blood culture - 03/10/18 14:27 FREE TEXT EXTERNAL 2 COLONY TYPES OBSERVED ON PLATES NRG QUANTITY OF GROWTH . NRG Bacterial blood culture SEE COMMEN NRG PT panel in platelet poor plasma by coagulation assay - 03/10/18 15:03 Prothrombin time (PT) in platelet poor plasma by coagulation assay 14.4 s 12.2-14.7 INR in platelet poor plasma or blood by coagulation assay 1.1 0.8-1.4 Activated partial thromboplastin time (aPTT) in platelet poor plasma bycoagulation assay - 03/10/18 15:03 Activated partial thromboplastin time (aPTT) in platelet poor plasma bycoagulation assay 28 s 24-35 Bacterial blood culture - 03/10/18 15:03 Bacterial blood culture NG NRG Complete urinalysis with reflex to culture - 03/10/18 15:49 Urine color determination YELLOW NRG Urine clarity determination CLEAR NRG Urine pH measurement by test strip 6 5-9 Specific gravity of urine by test strip 1.010 1.016- 1.022 Urine protein assay by test strip, semi-quantitative 3+ NEGATIVE Urine glucose detection by automated test strip NEGATIVE NEGATIVE Erythrocytes detection in urine sediment by light microscopy 1+ NEGATIVE Urine ketones detection by automated test strip 1+ NEGATIVE Urine nitrite detection by test strip NEGATIVE NEGATIVE Urine total bilirubin detection by test strip NEGATIVE NEGATIVE Urine urobilinogen measurement by automated test strip (mass/volume) 1 mg/dL NORMAL Urine leukocyte esterase detection by dipstick 1+ NEGATIVE Automated urine sediment erythrocyte count by microscopy (number/high power field) [HPF] NRG Automated urine sediment leukocyte count by microscopy (number/high power field ) [HPF] NRG Bacteria detection in urine sediment by light microscopy NONE NRG Squamous epithelial cells detection in urine sediment by light microscopy 0-2 NRG Crystals detection in urine sediment by light microscopy NONE NRG Casts detection in urine sediment by light microscopy NONE NRG Mucus detection in urine sediment by light microscopy NEGATIVE NRG Complete urinalysis with reflex to culture NO NRG Encounters ACCT No. Visit Date/Time Discharge Status Pt. Type Provider Facility Loc./Unit Complaint [id number] 04/02/2018 14:04:00 04/02/2018 23:59:59 CLS Preadmit SRINIVASA WOODS, MARI Johnson [facility] REHAB GENERAL WEAKNESS; PARKINSONS [id number] 03/10/2018 14:07:00 03/10/2018 19:12:00 DIS Emergency SUKH MARIE CERTIFIED OPTICIAN [facility] ER FEVER [id number] 09/27/2017 11:30:00 09/27/2017 23:59:59 CLS Outpatient BRANDY BRAXTON DO [facility] RAD R05 [id number] 01/16/2017 07:52:00 01/16/2017 11:50:00 DIS Outpatient NICHOLE NEVES MD [facility] SDC SQUAMOUS CELL CARCINOMA [id number] 01/14/2017 11:51:00 01/14/2017 12:25:00 DIS Outpatient NICHOLE NEVES MD [facility] PREOP SQUAMOUS CELL CARCINOMA [id number] 11/23/2014 09:44:00 11/23/2014 23:59:59 CLS Outpatient BRANDY BRAXTON DO [facility] RAD L NICOLE-PORESIS- TROUSIENT [id number] 09/08/2014 13:42:00 09/08/2014 23:59:59 CLS Outpatient BRANDY BRAXTON DO [facility] RT DYSPENA COPD [id number] 08/31/2014 06:31:00 08/31/2014 23:59:59 CLS Outpatient BRANDY BRAXTON DO [facility] CARD DYPSNEA,MALAISE, FATIGUE [id number] 03/26/2013 09:36:00 06/22/2013 00:01:00 DIS Outpatient DONALDO CARSON MD [facility] RAD RENAL INSUFFICIENCY [id number] 06/11/2013 18:26:00 06/11/2013 21:07:00 DIS Emergency CHARLENE WOODS, RICARDO Duffy [facility] ER R SHOULDER PAIN [id number] 04/18/2018 18:12:00 ACT Emergency CHARLENE WOODS, RICARDO [facility] NATALIO KERR [id number] 11/23/2014 09:43:00 Document Registration [id number] 06/23/2013 10:45:00 Document Registration [id number] 08/19/2011 15:00:00 Document Registration [id number] 07/14/2009 05:42:00 Document Registration [id number] 06/07/2009 13:46:00 Document Registration [id number] 11/23/2014 09:44:22 ACT Document Registration
[2018-04-18 18:36] LABS: BASOPHILS % (AUTO) 0 % (0-10); EOSINOPHILS % (AUTO) 0 % (0-10); HEMATOCRIT 36 % (40-54); HEMOGLOBIN 11.7 G/DL (13.3-17.7); LYMPHOCYTES # (AUTO) 0.5 X 10^3 (1.0-4.0); LYMPHOCYTES % (AUTO) 6 % (12-44); MEAN CORPUSCULAR HEMOGLOBIN 32 PG (25-34); MEAN CORPUSCULAR HGB CONC 33 G/DL (32-36); MEAN CORPUSCULAR VOLUME 99 FL (80-99); MEAN PLATELET VOLUME 10.7 FL (7.4-10.4); MONOCYTES # (AUTO) 0.5 X 10^3 (0.0-1.0); MONOCYTES % (AUTO) 6 % (0-12); NEUTROPHILS # (AUTO) 7.4 X 10^3 (1.8-7.8); NEUTROPHILS % (AUTO) 88 % (42-75); PLATELET COUNT 137 10^3/uL (130-400); RED BLOOD COUNT 3.63 10^6/uL (4.35-5.85); RED CELL DISTRIBUTION WIDTH 13.3 % (10.0-14.5); WHITE BLOOD COUNT 8.4 10^3/uL (4.3-11.0)
[2018-04-18 18:44] LABS: FIBRIN DEGRADATION PRODUCTS 0.52 UG/ML (0.00-0.49); INR 1.2 (0.8-1.4); PROTHROMBIN TIME PATIENT 15.6 SEC (12.2-14.7)
[2018-04-18 18:47] LABS: ALANINE AMINOTRANSFERASE 18 U/L (0-55); ALBUMIN 3.8 GM/DL (3.2-4.5); ALKALINE PHOSPHATASE 100 U/L (40-136); BILIRUBIN,TOTAL 0.4 MG/DL (0.1-1.0); BUN/CREATININE RATIO 11; CALCIUM 8.8 MG/DL (8.5-10.1); CARBON DIOXIDE 23 MMOL/L (21-32); CHLORIDE 102 MMOL/L (98-107); CREATININE SERUM 1.72 MG/DL (0.60-1.30); GFR ESTIMATED 39; GLUCOSE 134 MG/DL (70-105); POTASSIUM 3.6 MMOL/L (3.6-5.0); SODIUM 136 MMOL/L (135-145); TOTAL PROTEIN 6.6 GM/DL (6.4-8.2)
--- NOTE | 2018-04-18 18:51 | Diagnostic Imaging Report ---
INDICATION: Acute mental status change. Left-sided weakness and facial drooping. History of strokes. COMPARISON STUDY: CT scan of the head from March 10, 2018. FINDINGS: At the site of the previous punctate hemorrhage in the posterior aspect of the right basal ganglia there is now a small lacunar infarct. No hemorrhage is present. No mass effect, midline shift or extra-axial fluid collections are present. Diffuse atrophy and white matter changes are again identified. Bone windows demonstrate postoperative changes to the left side of the skull. IMPRESSION: 1. Diffuse atrophy and small vessel disease is again identified. 2. The small area of hemorrhage in the right basal ganglia has now resolved with a small lacunar infarct in this area. 3. No acute findings are present. Dictated by: Dictated on workstation # [id number]
[2018-04-18 18:53] LABS: BAND NEUTROPHILS 7 %; BASOPHILS % (MANUAL) 0 %; EOSINOPHILS % (MANUAL) 0 %; LYMPHOCYTES % (MANUAL) 3 %; MONOCYTES % (MANUAL) 2 %; NEUTROPHILS % (MANUAL) 88 %; RBC MORPH NORMAL
--- NOTE | 2018-04-18 18:55 | Diagnostic Imaging Report ---
INDICATION: Left-sided weakness and facial drooping COMPARISON STUDIES: Chest from March 10. FINDINGS: Frontal view of the chest demonstrates the heart size and vascularity to be normal. Mild hyperinflation and interstitial changes are stable. Mild calcification of the aorta. Degenerative changes are present in the shoulders. IMPRESSION: Stable COPD. Dictated by: Dictated on workstation # [id number]
--- NOTE | 2018-04-18 19:28 | ED Neurological Problem ---
General Chief Complaint: Neuro-Stroke Like Symptoms Stated [place] [facility] [place]: PT PRESENTS TO ED VIA EMS TO COT 2. PT FAMILY REPORTS PT HAS BEEN INCREASINGLY CONFUSED AND WEAK SINCE THIS AM. PT REPORTS SHE NOTICED PT L SIDED FACIAL DROOP SINCE 1300 TODAY. Nursing Sepsis Screen: No Definite Risk Source: patient, family, old records Exam Limitations: no limitations History of Present Illness Date Seen by Provider: Apr 18, 2018 Time Seen by Provider: 18:12 Initial Comments This 72-year-old man presents to the emergency room with generalized weakness, difficulty with ambulation, left-sided facial droop, and confusion. He arrived via EMS. His first noticed these symptoms around 13:00. Patient has a history of prior strokes. He has had left-sided facial droop with strokes in the past. Patient took a nap after symptoms were noticed in symptoms were still present when he awoke. comments that he took 2 pain pills as stated of one today as well. Patient has multiple neurologic problems including prior stroke and Parkinson's disease. Fingerstick blood sugar for EMS was 180. Patient was noted to be febrile by EMS. notes that he is currently being treated with doxycycline for [place] spotted fever. Allergies and Home Medications Allergies Coded Allergies: No Known Drug Allergies (Unverified , 08/19/11) Home Medications Albuterol 17 Gm Aerosol, 17 GM IH PRN, (Reported) Alprazolam 1 Mg Tab.sr.24h, 1 MG PO DAILY, (Reported) Alprazolam 0.5 Mg Tablet, 0.5 MG PO 1200, (Reported) Budesonide/Formoterol Fumarate 10.2 Gm Hfa.aer.ad, 10.2 GM IH 2 puffs in am, ( Reported) Calcium Carbonate/Vitamin D3 1 Each Tablet, 1 EACH PO DAILY, (Reported) Carbidopa/Levodopa 1 Each Tablet, 1 EACH PO QID, (Reported) Cetirizine Hcl 5 Mg Tablet, 5 MG PO DAILY PRN for SINUS ALLERGIES, (Reported) Ergocalciferol 50,000 Unit Capsule, 50,000 UNIT PO Q 4 DAYS, (Reported) Felodipine 10 Mg Tab.sr.24h, 10 MG PO DAILY, (Reported) Folic Acid 1 Mg Tab, 1 MG PO DAILY, (Reported) Gemfibrozil 600 Mg Tablet, 600 MG PO BID, (Reported) Guaifenesin 600 Mg Tab, 600 MG PO BID PRN for CONGESTION, (Reported) Hydrocodone Bit/Acetaminophen 1 Each Tablet, 1 EACH PO Q6HR PRN, (Reported) Hydrocodone/Acetaminophen 1 Each Tablet, 1 TAB PO Q4H PRN for PAIN-MILD TO MODERATE Prescribed by: NICHOLE NEVES on 01/16/17 1052 Levetiracetam 750 Mg Tablet, 750 MG PO BID, (Reported) Levothyroxine Sodium 75 Mcg Tablet, 112 MCG PO DAILY, (Reported) Lisinopril 10 Mg Tab, 10 MG PO DAILY, (Reported) Omeprazole 40 Mg Capsule.dr, 40 MG PO DAILY, (Reported) Pravastatin Sodium 10 Mg Tablet, 10 MG PO HS, (Reported) Risperidone 0.5 Mg Tablet, 1.5 MG PO BID, (Reported) Sertraline Hcl 50 Mg Tablet, 50 MG PO BID, (Reported) Sertraline Hcl 100 Mg Tab, 100 MG PO BID, (Reported) Patient Home Medication List Home Medication List Reviewed: Yes Review of Systems Review of Systems Constitutional: see HPI Eyes: No Symptoms Reported Ears, Nose, Mouth, Throat: no symptoms reported Respiratory: no symptoms reported Cardiovascular: no symptoms reported Gastrointestinal: no symptoms reported Genitourinary: no symptoms reported Musculoskeletal: no symptoms reported Skin: no symptoms reported Psychiatric/Neurological: See HPI Endocrine: No Symptoms Reported Hematologic/Lymphatic: No Symptoms Reported Past Qoydkme-Khrjvu-Kmaplr Hx Patient Social History Alcohol Use: Past History Recreational Drug Use: No Smoking Status: Current Everyday Smoker Type Used: Cigarettes Recent Foreign Travel: No Contact w/Someone Who Travel: No Recent Infectious Disease Expo: No Recent Hopitalizations: No Physical Abuse: No Sexual Abuse: No Mistreated: No Fear: No Immunizations Up To Date Date of Pneumonia Vaccine: Mar 10, 2010 Date of Influenza Vaccine: Apr 10, 2013 Past Medical History Surgeries: Yes (BRAIN ANEURYSM AND HEMORRHAGE X2 requiring Craniotomy) Respiratory: Yes COPD, Emphysema Cardiac: Yes High Cholesterol, Hypertension Neurological: Yes (ANEURYSM-REQUIRED CRANIOTOMY) Stroke Reproductive Disorders: No Genitourinary: No Renal Failure Gastrointestinal: Yes Gastroesophageal Reflux Musculoskeletal: Yes Arthritis Endocrine: Yes Hypothyroidsim Cancer: Yes (SQUAMOUS CELL) Psychosocial: Yes (history of alcoholism) Bipolar Integumentary: Yes (history of cellulitis) Blood Disorders: No Physical Exam Vital Signs Vital Signs - First Documented 04/18/18 04/18/18 18:12 18:15 Temp 99.6 Pulse 87 Resp 12 B/P (MAP) 127/64 (85) Pulse Ox 98 O2 Delivery Nasal Cannula O2 Flow Rate 2.00 FiO2 98 Capillary Refill : Less Than 3 Seconds Height, Weight, BMI Height: 6'0.00" Weight: 185lbs. 0.0oz. 83.125886cp; 30.4 BMI Method:Stated General Appearance: WD/WN, no apparent distress HEENT: PERRL/EOMI, normal ENT inspection Neck: normal inspection Respiratory: lungs clear, normal breath sounds, no respiratory distress, no accessory muscle use Cardiovascular: regular rate, rhythm, no edema, no murmur Gastrointestinal: normal bowel sounds, non tender, soft Extremities: normal inspection, no pedal edema Neurologic/Psychiatric: no motor/sensory deficits, alert, normal mood/affect, oriented x 3, other (mild left-sided facial droop) Crainal Nerves: normal hearing, normal speech, PERRL Coordination/Gait: normal finger to nose (patient uses thumbs incentive index fingers for finger to nose test) Motor/Sensory: no motor deficit, no sensory deficit Skin: normal color, warm/dry Stroke NIH Stroke Scale Assessment Level of Consciousness: 0=Alert (0), Level of Consciousness-Questions: 0= Answers both month/age (0), LOC Commands: 0=Performs both tasks (0), Visual Rai: 0=No visual loss (0), Facial Movement (Facial Paresis): 1=Minor paralysis (1), Motor Function-Arms Right: 0=No drift (0), Motor Function-Arms Left: 0=No drift (0), Motor Function-Legs Right: 0=No drift (0), Motor Function- Legs Left: 0=No drift (0), Limb Ataxia: 0=Absent (0), Sensory: 0=Normal:no loss (0), Best Language: 0=No aphasia (0), Dysarthria: 0=Normal (0), Extinction & Inattention: 0=No abnormality (0), Total: 1 Focused Exam Lactate Level 04/18/18 18:24: Lactic Acid Level 1.46 Lactic Acid Level Laboratory Tests Test 04/18/18 18:24 Lactic Acid Level 1.46 MMOL/L (0.50-2.00) Progress/Results/Core Measures Results/Orders Lab Results Laboratory Tests Test 04/18/18 18:20 04/18/18 18:24 04/18/18 19:32 04/18/18 20:46 Range/Units White Blood Count 8.4 4.3-11.0 10^3/uL Red Blood Count 3.63 L 4.35-5.85 10^6/uL Hemoglobin 11.7 L 13.3-17.7 G/DL Hematocrit 36 L 40-54 % Mean Corpuscular Volume 99 80-99 FL Mean Corpuscular Hemoglobin 32 25-34 PG Mean Corpuscular Hemoglobin Concent 33 32-36 G/DL Red Cell Distribution Width 13.3 10.0-14.5 % Platelet Count 137 130-400 10^3/uL Mean Platelet Volume 10.7 H 7.4-10.4 FL Neutrophils (%) (Auto) 88 H 42-75 % Lymphocytes (%) (Auto) 6 L 12-44 % Monocytes (%) (Auto) 6 0-12 % Eosinophils (%) (Auto) 0 0-10 % Basophils (%) (Auto) 0 0-10 % Neutrophils # (Auto) 7.4 1.8-7.8 X 10^3 Lymphocytes # (Auto) 0.5 L 1.0-4.0 X 10^3 Monocytes # (Auto) 0.5 0.0-1.0 X 10^3 Eosinophils # (Auto) 0.0 0.0-0.3 10^3/uL Basophils # (Auto) 0.0 0.0-0.1 10^3/uL Neutrophils % (Manual) 88 % Lymphocytes % (Manual) 3 % Monocytes % (Manual) 2 % Eosinophils % (Manual) 0 % Basophils % (Manual) 0 % Band Neutrophils 7 % Blood Morphology Comment NORMAL Prothrombin Time 15.6 H 12.2-14.7 SEC INR Comment 1.2 0.8-1.4 Activated Partial Thromboplast Time 28 24-35 SEC D-Dimer 0.52 H 0.00-0.49 UG/ML Sodium Level 136 135-145 MMOL/L Potassium Level 3.6 3.6-5.0 MMOL/L Chloride Level 102 98-107 MMOL/L Carbon Dioxide Level 23 21-32 MMOL/L Anion Gap 11 5-14 MMOL/L Blood Urea Nitrogen 19 H 7-18 MG/DL Creatinine 1.72 H 0.60-1.30 MG/DL Estimat Glomerular Filtration Rate 39 BUN/Creatinine Ratio 11 Glucose Level 134 H 70-105 MG/DL Calcium Level 8.8 8.5-10.1 MG/DL Corrected Calcium 9.0 8.5-10.1 MG/DL Total Bilirubin 0.4 0.1-1.0 MG/DL Aspartate Amino Transf (AST/SGOT) 25 5-34 U/L Alanine Aminotransferase (ALT/SGPT) 18 0-55 U/L Alkaline Phosphatase 100 40-136 U/L Troponin I < 0.30 <0.30 NG/ML Total Protein 6.6 6.4-8.2 GM/DL Albumin 3.8 3.2-4.5 GM/DL Lactic Acid Level 1.46 0.50-2.00 MMOL/L Glucometer 112 H 70-110 MG/DL Urine Color WADE H Urine Clarity CLEAR Urine pH 6 5-9 Urine Specific Braymer 1.015 L 1.016-1.022 Urine Protein 2+ H NEGATIVE Urine Glucose (UA) NEGATIVE NEGATIVE Urine Ketones 1+ H NEGATIVE Urine Nitrite NEGATIVE NEGATIVE Urine Bilirubin 1+ H NEGATIVE Urine Urobilinogen 1 NORMAL MG/DL Urine Leukocyte Esterase 1+ H NEGATIVE Urine RBC (Auto) NEGATIVE NEGATIVE Urine RBC NONE /HPF Urine WBC RARE /HPF Urine Squamous Epithelial Cells 0-1 /HPF Urine Crystals NONE /LPF Urine Bacteria NONE /HPF Urine Casts NONE /LPF Urine Mucus NEGATIVE /LPF Urine Culture Indicated NO Micro Results Microbiology 04/18/18 Influenza Types A,B Antigen (KEARA) - Final, Complete My Orders Orders - RICARDO CHANG MD Cbc With Automated Diff (04/18/18 18:21) Protime With Inr (04/18/18 18:21) Partial Thromboplastin Time (04/18/18 18:21) Comprehensive Metabolic Panel (04/18/18 18:21) Fibrin Degradation Products (04/18/18 18:21) Troponin I (04/18/18 18:21) Ua Culture If Indicated (04/18/18 18:21) Chest 1 View, Ap/Pa Only (04/18/18 18:21) Ekg Tracing (04/18/18 18:21) Accucheck Stat ONCE (04/18/18 18:21) Saline Lock/Iv-Start (04/18/18 18:21) Saline Lock/Iv-Start (04/18/18 18:21) Vital Signs Stroke Patient Q15M (04/18/18 18:21) Ct Head Wo-R/O Stroke (04/18/18 18:21) O2 (04/18/18 18:21) Intake & Output 06,14,22 (04/18/18 18:21) Monitor-Rhythm Ecg Trace Only (04/18/18 18:21) Dysphagia Screening Tool (04/18/18 18:21) Blood Culture (04/18/18 18:21) Sputum Culture (04/18/18 18:21) Urine Culture (04/18/18 18:21) Vital Signs Adult Sepsis Patie Q15M (04/18/18 18:21) Remove Rings In Anticipation O (04/18/18 18:21) Lactic Acid Analyzer (04/18/18 18:21) Influenza A And B Antigens (04/18/18 18:21) Manual Differential (04/18/18 18:20) Ns Iv 1000 Ml (Sodium Chloride 0.9%) (04/18/18 21:10) Medications Given in ED Current Medications Medications Dose Ordered Sig/Linette Route Start Time Stop Time Status Last Admin Dose Admin Sodium Chloride 1,000 ml @ 0 mls/hr Q0M ONCE IV 04/18/18 21:10 04/18/18 21:12 DC 04/18/18 21:21 0 MLS/HR Vital Signs/I&O 04/18/18 04/18/18 18:12 18:15 Temp 99.6 Pulse 87 Resp 12 B/P (MAP) 127/64 (85) Pulse Ox 98 94 O2 Delivery Nasal Cannula Room Air O2 Flow Rate 2.00 FiO2 98 04/19/18 00:00 Intake Total 1000 ml Balance 1000 ml Blood Pressure Mean: 85 Progress Progress Note : Progress Note Stroke activation was paged. Patient was not a TPA candidate as he was past 4.5 hours from time of onset and his NIH stroke score was only one. CT scan showed no acute abnormalities. Patient's fever resolved without treatment. He received a liter of IV fluids. His facial droop eventually resolved. Patient was able to ambulate with some assistance. Case was discussed with Dr. Henry, [facility] stroke neurologist. There appears to be no concern for acute neurologic event that would require treatment at this time. I discussed the safety of returning home with patient and his . It was decided that he has plenty of support at home with multiple family members present this weekend. We decided to dismiss home. I believe his symptoms are multifactorial with contributing factors being prior stroke, fever, recommend spotted fever disease , and hydration status. Initial ECG Impression Date: Apr 18, 2018 Initial ECG Impression Time: 19:00 Initial ECG Rate: 79 Initial ECG Rhythm: Normal Sinus Initial ECG Intervals: Normal Initial ECG Impression: Normal Comment Normal sinus rhythm with no ST elevation or depression. No abnormal intervals or axis deviation. Diagnostic Imaging Diagonstic Imaging: CT Plain Films/CT/US/NM/MRI: head Comments CT head viewed by me and report reviewed. See report below: NAME: ZAFAR ULRICH [facility] REC#: [id number] PT STATUS: REG ER : 1945 PHYSICIAN: RICARDO CHANG MD ADMIT DATE: 04/18/18/ER Signed Date of Exam:04/18/18 CT HEAD WO-R/O STROKE INDICATION: Acute mental status change. Left-sided weakness and facial drooping. History of strokes. COMPARISON STUDY: CT scan of the head from March 10, 2018. FINDINGS: At the site of the previous punctate hemorrhage in the posterior aspect of the right basal ganglia there is now a small lacunar infarct. No hemorrhage is present. No mass effect, midline shift or extra-axial fluid collections are present. Diffuse atrophy and white matter changes are again identified. Bone windows demonstrate postoperative changes to the left side of the skull. IMPRESSION: 1. Diffuse atrophy and small vessel disease is again identified. 2. The small area of hemorrhage in the right basal ganglia has now resolved with a small lacunar infarct in this area. 3. No acute findings are present. Dictated by: Dictated on workstation # [id number] Dict: 04/18/181844 Trans: 04/18/181899 [facility] [id number] Interpreted by: ANA JARAMILLO MD Electronically signed by: ANA JARAMILLO MD 04/18/181899 Diagonstic Imaging: Xray Plain Films/CT/US/NM/MRI: chest Comments Chest x-ray viewed by me and report reviewed. See report below: NAME: ZAFAR ULRICH [facility] REC#: [id number] PT STATUS: REG ER : 1945 PHYSICIAN: RICARDO CHANG MD ADMIT DATE: 04/18/18/ER Signed Date of Exam:04/18/18 CHEST 1 VIEW, AP/PA ONLY INDICATION: Left-sided weakness and facial drooping COMPARISON STUDIES: Chest from March 10. FINDINGS: Frontal view of the chest demonstrates the heart size and vascularity to be normal. Mild hyperinflation and interstitial changes are stable. Mild calcification of the aorta. Degenerative changes are present in the shoulders. IMPRESSION: Stable COPD. Dictated by: Dictated on workstation # [id number] Dict: 04/18/181849 Trans: 04/18/181899 [facility] [id number] Interpreted by: ANA JARAMILLO MD Electronically signed by: ANA JARAMILLO MD 04/18/181899 Departure Impression Primary Impression: Generalized weakness Additional Impressions: Facial droop Febrile illness Parkinsons [place] spotted fever Disposition: 01 HOME, SELF-CARE Condition: Improved Departure-Patient Inst. Decision time for Depature: 22:55 Referrals: OTHER,UNLISTED (PCP) Primary Care Physician Patient Instructions: Parkinson Disease Add. Discharge Instructions: Drink plenty of clear liquids. Continue your home medications as previously prescribed. Do not attempt to walk without a walker or assistance. Follow up with your primary care provider soon as possible. You may take Tylenol ( acetaminophen) up to 1000 mg every 6 hours as needed for fever. Return to the emergency room if symptoms worsen. All discharge instructions reviewed with patient and/or family. Voiced understanding. Copy Copies To 1: BRANDY BRAXTON JOSHUA T MD Apr 18, 2018 19:28
[2018-04-18 20:51] LABS: CLARITY,URINE CLEAR; COLOR,URINE AMBER; GLUCOSE, URINE (UA) NEGATIVE (NEGATIVE); KETONES,URINE 1+ (NEGATIVE); LEUKOCYTE ESTERASE ,URINE 1+ (NEGATIVE); NITRITE,URINE NEGATIVE (NEGATIVE); PH,URINE 6 (5-9); PROTEIN,URINE 2+ (NEGATIVE); UROBILINOGEN,URINE 1 MG/DL (NORMAL)
[2018-04-18 20:59] LABS: BILIRUBIN,URINE 1+ (NEGATIVE)
[2018-04-18 21:00] LABS: SQUAMOUS EPITHELIAL CELL,UR 0-1 /HPF; WBC,URINE RARE /HPF
[2018-04-18] MEDS ORDERED: NS IV 1000 ML 1,000 ML IV ONE (21:10)
== END 2018-04-18 23:33 | disposition home or self-care (01) ==
LOC: EDUNIT# 18:10 → ER 18:12
DX: R53.1 Weakness (principal); G20 Parkinson's disease; R29.810 Facial weakness; R50.9 Fever, unspecified; J43.9 Emphysema, unspecified; E78.00 Pure hypercholesterolemia, unspecified; I10 Essential (primary) hypertension; K21.9 Gastro-esophageal reflux disease without esophagitis; E03.9 Hypothyroidism, unspecified; F31.9 Bipolar disorder, unspecified; F17.210 Nicotine dependence, cigarettes, uncomplicated; Z85.828 Personal history of other malignant neoplasm of skin; Z79.51 Long term (current) use of inhaled steroids; Z86.73 Personal history of transient ischemic attack (TIA), and cerebral infarction without residual deficits
CPT/HCPCS: 36415; 70450; 71045; 80053; 81000; 82962; 83605; 84484; 85007; 85027; 85379; 85610; 85730; 87040; 87088; 87804; 93005; 93041

== ENCOUNTER 2019-01-19 06:10 | Outpatient (CLI) | payer MEDICARE, OTHER ==
[~2019-01-19] VITALS: Ht 182.9 cm; Wt 83.9 kg
[~2019-01-19 06:10] MED LIST changes: -ALPR0.5T7 PO; -CARB1TAB19 PO; -CARB1TAB22 PO; -DIVA250T12 PO; -DOXY100T2 PO; -FELO10TA3 PO; -GEMF600T8 PO; -LEVO112T55 PO; -LISI10TA2 PO; -OMEP40CA36 PO; -RISP0.5T3 PO; -SERT100T8 PO; -SULI200T4 PO
[2019-01-19] MEDS ORDERED: GEMF600T8 PO (13:22)
[2019-01-19] MEDS ORDERED: OMEP40CA36 PO (13:22)
[2019-01-19] MEDS ORDERED: CARB1TAB22 PO (13:22)
[2019-01-19] MEDS ORDERED: HYDR-3820 PO (13:22)
[2019-01-19] MEDS ORDERED: FELO10TA3 PO (13:22)
[2019-01-19] MEDS ORDERED: ALPR0.5T7 PO (13:22)
[2019-01-19] MEDS ORDERED: RISP0.5T3 PO ×2 (13:22)
[2019-01-19] MEDS ORDERED: SERT100T8 PO (13:22)
[2019-01-19] MEDS ORDERED: LISI10TA2 PO (13:22)
[2019-01-19] MEDS ORDERED: LEVO112T55 PO (13:22)
[2019-01-19] MEDS ORDERED: LOVA10TA PO (13:32)
[2019-01-19] MEDS ORDERED: DOXY100T2 PO (13:32)
[2019-01-19] MEDS ORDERED: SULI200T4 PO (13:32)
[2019-01-19] MEDS ORDERED: CARB1TAB19 PO (13:32)
[2019-01-19] MEDS ORDERED: DIVA250T12 PO (13:32)
== END 2019-01-19 13:33 ==
LOC: PREOP 06:10
PROVIDERS: ATTEND Surgery
DX: Z01.818 Encounter for other preprocedural examination (principal)

== ENCOUNTER → 2019-01-19 | Outpatient (CLI) | payer MEDICARE, OTHER ==
[~2019-01-19] MED LIST changes: +ALPR0.5T7 PO; +CARB1TAB19 PO; +CARB1TAB22 PO; +DIVA250T12 PO; +DOXY100T2 PO; +FELO10TA3 PO; +GEMF600T8 PO; +LEVO112T55 PO; +LISI10TA2 PO; +OMEP40CA36 PO; +RISP0.5T3 PO; +SERT100T8 PO; +SULI200T4 PO
--- NOTE | 2019-01-19 11:56 | Diagnostic Imaging Report ---
PROCEDURE: US Renal Bilateral. TECHNIQUE: Multiple real-time grayscale images were obtained over the kidneys in various projections bilaterally. INDICATION: Elevated BUN and creatinine. FINDINGS: Right kidney measures 9.4 x 5.1 x 4.8 cm and the left kidney measures 9.2 x 6.1 x 4.9 cm. Cortical echogenicity is normal. There is some mild cortical thinning bilaterally. There is no calculi or hydronephrosis. There is a cyst in the upper pole of the left kidney measuring 3.8 x 3.9 x 3.4 cm this was not seen on prior ultrasound from 2012. Bladder is unremarkable. Left ureteral jet was visualized. Right ureteral jet was not visualized. IMPRESSION: There is mild cortical thinning bilaterally but no evidence of calculi or hydronephrosis. There is a simple appearing cyst in the upper pole left kidney. Dictated by: Dictated on workstation # [id number]
== END ==
LOC: RAD 10:55
PROVIDERS: ATTEND Internal Medicine
DX: N28.89 Other specified disorders of kidney and ureter (principal); R79.89 Other specified abnormal findings of blood chemistry
CPT/HCPCS: 76770

== ENCOUNTER 2019-01-21 10:45 | Day surgery (SDC) | payer MEDICARE, OTHER ==
[~2019-01-21] VITALS: Ht 182.9 cm; Wt 83.9 kg
[2019-01-21] VITALS (15 sets, daily range): BP systolic 112–187; BP diastolic 72–99
[~2019-01-21 10:45] MED LIST changes: +ALPR0.5T7 PO; +CARB1TAB19 PO; +CARB1TAB22 PO; +DIVA250T12 PO; +DOXY100T2 PO; +FELO10TA3 PO; +GEMF600T8 PO; +LEVO112T55 PO; +LISI10TA2 PO; +OMEP40CA36 PO; +RISP0.5T3 PO; +SERT100T8 PO; +SULI200T4 PO
[2019-01-21] MEDS ORDERED: LACTATED RINGERS 1,000 ML IV STA (10:54)
[2019-01-21] MEDS ORDERED: LACTATED RINGERS 1,000 ML IV ONE (10:56)
[2019-01-21] MEDS ORDERED: LIDOCAINE JELLY 2% 6 ML SYRINGE MM PRN ×2 (11:00→13:30)
--- NOTE | 2019-01-21 11:07 | Conscious Sedation/ASA ---
Conscious Sedation Pre-Proced Time 11:00 ASA Score 2 For ASA 3 and 4: Consider anesthesia and medical clearance. Also, for patients with a history of failed moderate sedation consider anesthesia. Airway Lungs Heart ASA score ASA 1: a normal healthy patient ASA 2: a patient with a mild systemic disease (mid diabetes, controlled hypertension, obesity ASA 3: a patient with a severe systemic disease that limits activity (angina, COPD, prior Myocardial infarction) ASA 4: a patient with an incapacitating disease that is a constant threat to life (CHF, renal failure) ASA 5: a moribund patient not expected to survive 24 hrs. (ruptured aneurysm) ASA 6: a declared brain- patient whose organs are being harvested. For emergent operations, add the letter E after the classification Mallampati Classification Grade 2 Sedation Plan Analgesia, Amnesia, Plan communicated to team members, Discussed options with patient/fam, Discussed risks with patient/fam The patient is an appropriate candidate to undergo the planned procedure, sedation, and anesthesia. The patient immediately re-assessed prior to indication. TRENT ENCINAS MD Jan 21, 2019 11:07
--- NOTE | 2019-01-21 11:08 | Progress Note-Pre Operative ---
Pre-Operative Progress Note H&P Reviewed The H&P was reviewed, patient examined and no changes noted. Date Seen by Provider: Jan 21, 2019 Time Seen by Provider: 11:00 Date H&P Reviewed: Jan 21, 2019 Time H&P Reviewed: 11:00 Pre-Operative Diagnosis: rectal bleed, weight loss TRENT ENCINAS MD Jan 21, 2019 11:08
--- NOTE | 2019-01-21 11:10 | Discharge Inst-Surgical ---
D/C Lap Instructions-HUANG Follow Up Activity as tolerated High Fiber Diet 25g or more per day Avoid Alcohol, Caffeine, Spicy [place] and Acid foods. Drink 64 fluid oz or more of fluids per day. Symptoms to Report: Fever over 101 degree F, Nausea/Vomiting If any problems/questions: Contact your physician or go to Emergency Room TRENT ENCINAS MD Jan 21, 2019 11:10
[2019-01-21] MEDS ORDERED: morphine INJ 10 MG/ML 1ML (SYR OR VIAL) IVP PRN ×2 (11:15)
[2019-01-21] MEDS ORDERED: ONDANSETRON 4 MG/2 ML (SDV) Z0FRAN IVP PRN (11:15)
[2019-01-21] MEDS ORDERED: HYDROcodone/APAP 5 MG/325 MG (LORTAB) TAB PO PRN (11:15)
[2019-01-21] MEDS ORDERED: ACETAMINOPHEN 325 MG TABLET PO PRN (11:15)
[2019-01-21] MEDS ORDERED: MIDAZOLAM 2 MG/2 ML (VERSED) VIAL ONE ×2 (12:26)
[2019-01-21] MEDS ORDERED: LIDOCAINE JELLY 2% 6 ML SYRINGE ONE (12:26)
[2019-01-21] MEDS ORDERED: fentaNYL INJECTION 100 MCG/2 ML AMP ONE (12:26)
[2019-01-21] MEDS ORDERED: NS IV 500 ML 0 ML ONE (12:30)
[2019-01-21] MEDS ORDERED: fentaNYL INJECTION 100 MCG/2 ML AMP IVP ONE (13:30)
[2019-01-21] MEDS ORDERED: MIDAZOLAM 2 MG/2 ML (VERSED) VIAL IVP ONE (13:30)
--- NOTE | 2019-01-21 13:38 | Progress Note-Post Operative ---
Post-Operative Progess Note Surgeon (s)/Timber Hewer (s) Surgeon TRENT ENCINAS MD Timber Hewer: none Pre-Operative Diagnosis rectal bleed, weight loss Post-Operative Diagnosis mild chronic stage 1 ext and int hemorrhoids, rectal mass(2cm, sessile, friable, <1/3 diameter, 5-7cm from anal verge). mild sigmoid diverticulosis, mild inflammation cecum. Procedure & Operative Findings Date of Procedure 01/21/19 Procedure Performed/Findings colonoscopy with bx and submucosal injection. Anesthesia Type cs Estimated Blood Loss Estimated blood loss (mL): minimal Specimens/Packing Specimens Removed rectal mass, cecum TRENT ENCINAS MD Jan 21, 2019 13:38
--- NOTE | 2019-01-21 20:55 | OPERATIVE REPORT ---
DATE OF SERVICE: 01/21/2019 ATTENDING PRIMARY CARE PHYSICIAN: Dr. Cormier. PREOPERATIVE DIAGNOSES: Weight loss, rectal bleeding. POSTOPERATIVE DIAGNOSES: Chronic stage II external and internal hemorrhoids, rectal mass approximately 5 to 7 cm from the anal verge, friable approximately 2 cm in size, sessile less than one-third of the diameter of the rectum. Mild sigmoid diverticulosis, mild colitis of the cecum. PROCEDURE: Colonoscopy with biopsy and submucosal injection. SURGEON: Trent Encinas MD ANESTHESIA: Conscious sedation. ESTIMATED BLOOD LOSS: Minimal. FINDINGS: Chronic stage II external and internal hemorrhoids, rectal mass approximately 5 to 7 cm from the anal verge, friable approximately 2 cm in size, sessile less than one-third of the diameter of the rectum. Mild sigmoid diverticulosis, mild colitis of the cecum. DISPOSITION: The patient tolerated the procedure well. INDICATIONS: The patient is a 73-year-old male who was referred over to us for a three-month history of diarrhea, red blood per rectum and weight loss. He states that he has lost 36 pounds over the last six months. He has had a colonoscopy done in the past; however, he states that this was greater than 10 years ago. He does not report any family history of colon cancer. DESCRIPTION OF PROCEDURE: The patient was brought to the endoscopy suite, laid in the left lateral decubitus position. After adequate IV pain and sedative medications and conscious sedation anesthesia, a digital rectal examination was performed. Chronic stage II external and internal hemorrhoids were identified, which were not actively edematous nor inflamed and no bleeding. Normal sphincter tone was felt, however, there was a palpable mass at the tip of the index finger which was approximately 2 cm in size and friable. The endoscope was then intubated to the anus and rectum gently insufflated. The mass was identified. The mass appeared to be a neoplastic lesion, approximately 2 cm in size. This was encompassing less than one-third of the diameter of the lumen of the rectum. The mass was movable. Several biopsies were taken of the mass and submucosal injections around the mass was performed using black ink. The endoscope was then advanced to the sigmoid colon where mild sigmoid diverticulosis identified. The endoscope was then advanced to the remainder of the descending, transverse and ascending colon to the cecum. These segments were normal. There was a mild amount of inflammation of the cecum; however, this may have been due to bowel prep and a biopsy was taken of the cecum. The endoscope was then slowly withdrawn while taking a second look and suctioning of residual air with no additional findings. The patient tolerated the procedure well. We will await the biopsy results. Due to his medical comorbidities and the location of the lesion and the size, he may be a candidate for transanal resection of the lesion. If that is the case, we will refer him to colorectal specialist. Job ID: [id number] DocumentID: [id number] Dictated Date: 01/21/2019 13:19:12 Nurse Practitioner Adult Date: 01/21/2019 20:54:58 Dictated By: TRENT ENCINAS MD MTDD
== END 2019-01-21 14:20 | disposition home or self-care (01) ==
LOC: ENDO 10:45
PROVIDERS: ATTEND Surgery
DX: C20 Malignant neoplasm of rectum (principal); D12.8 Benign neoplasm of rectum; K57.30 Diverticulosis of large intestine without perforation or abscess without bleeding; K52.9 Noninfective gastroenteritis and colitis, unspecified; K64.1 Second degree hemorrhoids; K63.89 Other specified diseases of intestine; J43.9 Emphysema, unspecified; F41.9 Anxiety disorder, unspecified; F32.9 Major depressive disorder, single episode, unspecified; E53.8 Deficiency of other specified B group vitamins; G20 Parkinson's disease; G40.909 Epilepsy, unspecified, not intractable, without status epilepticus; K21.9 Gastro-esophageal reflux disease without esophagitis; I10 Essential (primary) hypertension; E78.00 Pure hypercholesterolemia, unspecified; F17.210 Nicotine dependence, cigarettes, uncomplicated; Z86.73 Personal history of transient ischemic attack (TIA), and cerebral infarction without residual deficits; Z79.899 Other long term (current) drug therapy; Z86.718 Personal history of other venous thrombosis and embolism
CPT/HCPCS: 88305

== ENCOUNTER 2019-02-05 09:14 | Outpatient (RCR) | payer MEDICARE, OTHER ==
[2019-02-05 11:53] LABS: BASOPHILS % (AUTO) 0 % (0-10); EOSINOPHILS # (AUTO) 0.1 10^3/uL (0.0-0.3); EOSINOPHILS % (AUTO) 2 % (0-10); HEMATOCRIT 35 % (40-54); HEMOGLOBIN 11.4 G/DL (13.3-17.7); LYMPHOCYTES # (AUTO) 1.1 X 10^3 (1.0-4.0); LYMPHOCYTES % (AUTO) 19 % (12-44); MEAN CORPUSCULAR HEMOGLOBIN 33 PG (25-34); MEAN CORPUSCULAR HGB CONC 33 G/DL (32-36); MEAN CORPUSCULAR VOLUME 99 FL (80-99); MEAN PLATELET VOLUME 10.5 FL (7.4-10.4); MONOCYTES # (AUTO) 0.4 X 10^3 (0.0-1.0); MONOCYTES % (AUTO) 7 % (0-12); NEUTROPHILS % (AUTO) 71 % (42-75); PLATELET COUNT 186 10^3/uL (130-400); RED CELL DISTRIBUTION WIDTH 14.6 % (10.0-14.5); WHITE BLOOD COUNT 5.6 10^3/uL (4.3-11.0)
[2019-02-05 12:24] LABS: ALBUMIN 2.7 GM/DL (3.2-4.5); BILIRUBIN,TOTAL 0.3 MG/DL (0.1-1.0); CALCIUM 8.3 MG/DL (8.5-10.1); CREATININE SERUM 1.9 MG/DL (0.60-1.30); POTASSIUM 4.4 MMOL/L (3.6-5.0); TOTAL PROTEIN 5.5 GM/DL (6.4-8.2)
[2019-05-02] MEDS ORDERED: SERT100T8 PO ×2 (22:03)
[2019-05-02] MEDS ORDERED: BUDE10.2 IH ×2 (22:03)
[2019-05-02] MEDS ORDERED: SERT50TA9 PO ×2 (22:03)
[2019-05-02] MEDS ORDERED: ALPR2TAB PO ×2 (22:03)
[2019-05-04] MEDS ORDERED: TAMS0.4C98 PO ×2 (11:44)
[2019-05-04] MEDS ORDERED: ALPR0.5T7 PO ×2 (12:31)
[2019-05-04] MEDS ORDERED: ALPR0.5T PO ×2 (12:31)
[2019-05-04] MEDS ORDERED: RISP0.5T3 PO ×2 (12:33)
[2019-05-04] MEDS ORDERED: CNC1KV IM ×2 (14:03)
[2019-05-05] MEDS ORDERED: IPRA3AMP31 INH ×2 (10:10)
[2019-05-06] MEDS ORDERED: LISI10TA2 PO ×2 (09:38)
[2019-05-06] MEDS ORDERED: CEFD300C3 PO ×2 (09:38)
== END 2019-05-06 | disposition home or self-care (01) ==
LOC: ONC 09:14
PROVIDERS: ATTEND Internal Medicine Hematology & Oncology
DX: C20 Malignant neoplasm of rectum (principal); J44.9 Chronic obstructive pulmonary disease, unspecified; G20 Parkinson's disease; F17.210 Nicotine dependence, cigarettes, uncomplicated; Z86.73 Personal history of transient ischemic attack (TIA), and cerebral infarction without residual deficits
CPT/HCPCS: 36415; 80053; 82378; 85025; 99214

== ENCOUNTER → 2019-02-13 | Outpatient (CLI) | payer MEDICARE, OTHER ==
--- NOTE | 2019-02-13 15:10 | Diagnostic Imaging Report ---
PROCEDURE: CT chest, abdomen, and pelvis without contrast. TECHNIQUE: Multiple contiguous axial images were obtained through the chest, abdomen, and pelvis without the use of intravenous contrast. Auto Exposure Controls were utilized during the CT exam to meet ALARA standards for radiation dose reduction. INDICATION: Rectal carcinoma and pelvic pain. COMPARISON: No prior studies are available for comparison. FINDINGS: CT chest: No axillary lymphadenopathy is detected. Hilar and mediastinal evaluation is limited without intravenous contrast. No significant abnormality is seen. No pericardial or pleural fluid is identified. Both lungs demonstrate centrilobular emphysematous changes. Tiny left upper lobe subpleural nodule is seen measuring 3 mm, image 35. There is a tiny nodule in the superior segment of right lower lobe measuring 3 mm, image 35. No other nodules are seen. There are no infiltrates. Bony structures are nonacute. IMPRESSION: Unremarkable CT of the chest apart from bilateral micronodules. No definite thoracic lymphadenopathy is detected. CT abdomen and pelvis: No discrete liver mass is detected. Gallbladder contains a gallstone. No biliary ductal dilatation is seen. The pancreas and spleen are unremarkable. No adrenal mass is detected. Kidneys are unremarkable apart from a low-density mass arising from the upper pole of left kidney measuring 3.8 cm. This most likely represents a cyst. No calculi or hydronephrosis is identified. Mild aneurysmal dilatation of the infrarenal abdominal aorta is noted measuring 3.4 cm in AP diameter. No central, retroperitoneal or mesenteric lymphadenopathy is seen. Bowel loops are normal in caliber. No obstruction is identified. There is moderate stool in the colon. There is no ascites. Bladder is unremarkable. No definite pelvic lymphadenopathy is identified. Bony structures are nonacute. IMPRESSION: 1. Cholelithiasis. 2. Left renal cyst. 3. No definite abdominal or pelvic lymphadenopathy or evidence of metastatic disease is detected. 4. Infrarenal abdominal aortic aneurysm. Dictated by: Dictated on workstation # [id number]
--- NOTE | 2019-02-17 10:54 | Diagnostic Imaging Report ---
PROCEDURE: MRI rectal cancer staging. TECHNIQUE: Multiplanar, multisequence MRI of the pelvis was performed with and without contrast. Gadavist intravenous contrast is administered. INDICATION: Newly diagnosed rectal cancer. FINDINGS: 1. MRI PROTOCOL: Overall image quality: Adequate. 2. TUMOR LOCATION There is asymmetric mixed sessile and polypoid type mucosal mass with rolled margins along the right anterolateral aspect of the rectal wall from the 9 o'clock through 12 o'clock position. The inferior margin of this sessile thigh mass is located approximately 5 cm from the anal verge. The inferior margin of the mass is located above the anterior peritoneal reflection. 3. TUMOR CHARACTERISTICS, T-CATEGORY and DISTANCE TO THE MRF AND EXTRAMURAL DEPTH OF INVASION (EMD) The tumor extends over a craniocaudal length of approximately 2-3 cm and is located at the junction of the mid to distal one third of the rectum. The mass invades the muscularis propria and has intraluminal extension via the rolled tumor margins. However, there is no invasion beyond the muscularis propria into the mesorectal fat. 4. EXTRAMURAL VASCULAR INVASION (EMVI) EMVI: No features of extramural vascular invasion. 5. MESORECTAL LYMPH NODES AND TUMOR DEPOSITS No abnormal soft tissue nodules or lymph nodes within the mesorectal fat to suggest regional metastases. 6. EXTRAMESORECTAL LYMPH NODES No lymphadenopathy along the pelvic sidewalls. IMPRESSION: 1. Mid to distal rectal mass invades the muscularis propria but has no extension beyond the muscularis propria (T2). 2. No regional lymphadenopathy (N0). TNM Staging Classification Primary Tumour (T) TX Primary tumor cannot be assess. T0 No evidence of primary tumor. Tis Tis Carcinoma in situ: intraepithelial or invasion of lamina propria. T1 Tumour invades submucosa. T2 Tumor invades muscularis propria. T3 Tumor invades through the muscularis propria into pericolorectal tissues. T4a Tumor penetrates to the surface of the visceral peritoneum. T4b Tumor directly invades or is adherent to other organs or structures. Regional Lymph Nodes (N) NX Regional lymph nodes cannot be assessed. NO No regional lymph node metastasis. N1 Metastases in 1-3 regional lymph node. N2 Metastases in >4 regional lymph nodes. Distant Metastasis (M) M0 No distant metastasis. M1 Distant metastasis. Stage Prognostic Groups Stage T N N 0 Tis NO MO I T1-T2 NO MO II T3-T4 NO MO III Any T N1-N2 MO IV Any T Any N M1 Dictated by: Dictated on workstation # [id number]
== END ==
LOC: RAD 14:39
PROVIDERS: ATTEND Internal Medicine Hematology & Oncology
DX: K80.20 Calculus of gallbladder without cholecystitis without obstruction (principal); N28.1 Cyst of kidney, acquired; I71.4 Abdominal aortic aneurysm, without rupture; C20 Malignant neoplasm of rectum
CPT/HCPCS: 71250; 72195; 74176

== ENCOUNTER 2019-03-21 09:33 | Emergency (ER) | payer MEDICARE, OTHER ==
[~2019-03-21] VITALS: Ht 182 cm; Wt 170.0 kg
[2019-03-21] MEDS ORDERED: NS IV 1000 ML 1,000 ML IV SCH ×2 (09:40)
[2019-03-21] MEDS ORDERED: ACETAMINOPHEN 500 MG TAB (TYLENOL) PO PRN (09:45)
[2019-03-21] MEDS ORDERED: CEFEPIME INJECTION 1,000 MG in WATER (STERILE) FOR INJECTION 10 ML IV ONE (09:45)
[2019-03-21 09:48] LABS: BASOPHILS % (AUTO) 0 % (0-10); EOSINOPHILS % (AUTO) 0 % (0-10); HEMATOCRIT 28 % (40-54); HEMOGLOBIN 9.1 G/DL (13.3-17.7); LYMPHOCYTES # (AUTO) 0.2 X 10^3 (1.0-4.0); LYMPHOCYTES % (AUTO) 3 % (12-44); MEAN CORPUSCULAR HEMOGLOBIN 33 PG (25-34); MEAN CORPUSCULAR HGB CONC 32 G/DL (32-36); MEAN CORPUSCULAR VOLUME 102 FL (80-99); MEAN PLATELET VOLUME 9.9 FL (7.4-10.4); MONOCYTES # (AUTO) 0.2 X 10^3 (0.0-1.0); MONOCYTES % (AUTO) 3 % (0-12); NEUTROPHILS # (AUTO) 5.5 X 10^3 (1.8-7.8); NEUTROPHILS % (AUTO) 94 % (42-75); PLATELET COUNT 262 10^3/uL (130-400); RED CELL DISTRIBUTION WIDTH 13.7 % (10.0-14.5); WHITE BLOOD COUNT 5.9 10^3/uL (4.3-11.0)
--- NOTE | 2019-03-21 09:48 | ED General ---
General Stated Complaint: WEAKNESS Source of Information: Patient, EMS Exam Limitations: No Limitations History of Present Illness Date Seen by Provider: Mar 21, 2019 Time Seen by Provider: 09:33 Initial Comments Patient presents to ER with increased confusion and weakness since 2099 yesterday. His reports that this morning he did not want take his me dications or get out of bed so she became concerned he might of had a stroke. He has a history of strokes. He is not having any lateralizing symptoms. EMS reports febrile with a normal sugar 100. Not diabetic. He has a history of Parkinson's disease 10 days status post surgery on the colon for resection of colon cancer and colostomy placement. He feels distended but not having any pain shortness of breath cough or nausea. Arrives and we had a discussion at 1045 that the patient couple weeks ago got off antibiotics from primary care for [place] spotted fever. She says that the primary care doctor, Dr. Cormier repeated labs and showed it had cleared since then. Their plan was to follow-up with oncology at [place] but they have not made that appointment yet. He discharged home yesterday. Dr. Schilling was the surgeon at [place]. Allergies and Home Medications Allergies Coded Allergies: No Known Drug Allergies (Unverified , 08/19/11) Home Medications Alprazolam 0.5 Mg Tablet, 0.5 MG PO BID, (Reported) Calcium Carbonate/Vitamin D3 1 Each Tablet, 1 EACH PO DAILY, (Reported) Carbidopa/Levodopa 1 Each Tablet, 1 EACH PO QID, (Reported) Cetirizine Hcl 5 Mg Tablet, 5 MG PO DAILY PRN for SINUS ALLERGIES, (Reported) Divalproex Sodium 250 Mg Tab.er.24h, 250 MG PO BID, (Reported) Doxycycline Hyclate 100 Mg Tablet, 100 MG PO BID, (Reported) Felodipine 10 Mg Tab.er.24h, 10 MG PO DAILY, (Reported) Folic Acid 1 Mg Tab, 1 MG PO DAILY, (Reported) Gemfibrozil 600 Mg Tablet, 600 MG PO BID, (Reported) Hydrocodone/Acetaminophen 1 Each Tablet, 1 TAB PO Q4H PRN for PAIN-MODERATE, (Reported) Levetiracetam 750 Mg Tablet, 750 MG PO BID, (Reported) Levothyroxine Sodium 112 Mcg Tablet, 112 MCG PO DAILY, (Reported) Lisinopril 10 Mg Tablet, 10 MG PO DAILY, (Reported) Lovastatin 10 Mg Tablet, 5 MG PO HS, (Reported) take 1/2 of 10mg tab Omeprazole 40 Mg Capsule.dr, 40 MG PO DAILY, (Reported) Risperidone 0.5 Mg Tablet, 0.5 MG PO DAILY, (Reported) Risperidone 0.5 Mg Tablet, 0.75 MG PO HS, (Reported) take 1 1/2 of .5mg tab Sertraline HCl 100 Mg Tablet, 100 MG PO BID, (Reported) Sulindac 200 Mg Tablet, 200 MG PO BID, (Reported) Patient Home Medication List Home Medication List Reviewed: Yes Review of Systems Review of Systems Constitutional: No chills, No diaphoresis EENTM: No ear discharge, No ear pain Respiratory: No cough, No short of breath Cardiovascular: No chest pain, No edema Gastrointestinal: see HPI; No abdominal pain, No constipation, No diarrhea, No nausea, No vomiting Genitourinary: No discharge, No dysuria Musculoskeletal: No back pain, No joint pain Past Mlaxbmk-Tcpfzm-Hnpzbj Hx Patient Social History Alcohol Use: Denies Use Recreational Drug Use: No Smoking Status: Current Everyday Smoker Type Used: Cigarettes 2nd Hand Smoke Exposure: No Recent Foreign Travel: No Contact w/Someone Who Travel: No Recent Hopitalizations: No Immunizations Up To Date Date of Pneumonia Vaccine: Mar 10, 2010 Date of Influenza Vaccine: Apr 10, 2013 Seasonal Allergies Seasonal Allergies: No Past Medical History Surgeries: Yes (BRAIN ANEURYSM AND HEMORRHAGE X2 requiring Craniotomy) Respiratory: Yes COPD, Emphysema Cardiac: Yes High Cholesterol, Hypertension Neurological: Yes (ANEURYSM-REQUIRED CRANIOTOMY) Stroke Reproductive Disorders: No Genitourinary: No Renal Failure Gastrointestinal: Yes Gastroesophageal Reflux, Chronic Diarrhea Musculoskeletal: Yes Arthritis Endocrine: Yes Hypothyroidsim HEENT: No Cancer: Yes (SQUAMOUS CELL) Psychosocial: Yes (history of alcoholism) Bipolar Integumentary: Yes (history of cellulitis) Blood Disorders: No Physical Exam-Suspected Sepsis Physical Exam Vital Signs Vital Signs - First Documented 03/21/19 09:33 Temp 38.7 Pulse 94 Resp 16 B/P (MAP) 138/77 (97) Pulse Ox 95 O2 Delivery Room Air Capillary Refill : Height, Weight, BMI Height: 6'0.00" Weight: 185lbs. 0.0oz. 83.178795oc; 25.1 BMI Method:Stated General Appearance: Chronically ill, Mild Distress Eyes: Bilateral Eye Normal Inspection, Bilateral Eye PERRL, Bilateral Eye EOMI HEENT: PERRL/EOMI, Pharynx Normal; No Moist Mucous Membranes Neck: Full Range of Motion, Normal Inspection Respiratory: Lungs Clear, Normal Breath Sounds, No Accessory Muscle Use, No Respiratory Distress Cardiovascular: Regular Rate, Rhythm, No Edema, Normal Peripheral Pulses Gastrointestinal: Non Tender, Soft, Abnormal Bowel Sounds (Quiescent), Distended (mild to moderate), Other (colostomy with soft, brown secretions. Lepper scopic abdominal wound left lower quadrant with minimal erythema no induration and no discharge.) Extremity: Normal Capillary Refill, Normal Inspection, No Pedal Edema Neurologic/Psychiatric: Alert, Oriented x3 (oriented to person place and date of and president.), No Motor/Sensory Deficits, asset protection representative II-XII Norm as Tested, Other (Fine tremor; GCS 14, no acute lateralizing neurologic symptoms. No drift. No down turn facies.) Skin: normal color, warm/dry Onset of Symptoms Date of Onset of Symptoms: Mar 20, 2019 Time of Symptom Onset: 21:00 Symptoms onset unknown: Yes NIH Stroke Scale Assessment Select: Initial 0940 Level of Consciousness: 0=Alert (0), Level of Consciousness-Questions: 0=Answers both month/age (0), LOC Commands: 0=Performs both tasks (0), Gaze: Normal (0), Visual Rai: 0=No visual loss (0), Facial Movement (Facial Paresis): 0=Normal symmetrical mnt (0), Motor Function-Arms Right: 0=No drift (0), Motor Function-Arms Left: 0=No drift (0), Motor Function-Legs Right: 0=No drift (0), Motor Function-Legs Left: 0=No drift (0), Limb Ataxia: 0=Absent (0), Sensory: 0=Normal:no loss (0), Best Language: 0=No aphasia (0), Dysarthria: 0=Normal (0), Extinction & Inattention: 0=No abnormality (0), Total: 0 Stroke Thrombolytic Exclusion Age 18 or Over: Yes Acute intenal hemorrhage: No History of CVA: Yes Uncontrolled Coagulation Defec: No Intracranial Hemorrhage: No Severe Hypertension: No GI or Bleed: No Subarachnoid Hemorrhage: No Intracranial Neoplasm/Aneurysm: No Oral Anticoagulants: No Surgery or Trauma: Yes Puncture of Non-Compressible V: No Recent CPR: No Diabetic Hemorrhagic Retinopat: No Organ Biopsy: No Recent Obstetric Delivery: No Glucose: No Significant Hepatic Dysfunctio: No NIH Stoke Scale >22: No Bacterial Endocarditis: No Pericarditis: No Improving Symptoms: No Platelets: No TPA Contraindication: Yes (NIH score to low) IV - TPa Received IV - TPa Procedure Performed?: No Focused Exam Lactate Level 03/21/19 09:40: Lactic Acid Level 0.78 Lactic Acid Level Laboratory Tests Test 03/21/19 09:40 Lactic Acid Level 0.78 MMOL/L (0.50-2.00) Progress/Results/Core Measures Suspected Sepsis SIRS Temperature: Pulse: Respiratory Rate: Laboratory Tests 03/21/19 09:35: White Blood Count 5.9 Blood Pressure / Mean: 03/21/19 09:40: Lactic Acid Level 0.78 Laboratory Tests 03/21/19 09:35: Creatinine 1.75H, INR Comment 1.2, Platelet Count 262, Total Bilirubin 0.4 Results/Orders Lab Results Laboratory Tests Test 03/21/19 09:35 03/21/19 09:40 Range/Units White Blood Count 5.9 4.3-11.0 10^3/uL Red Blood Count 2.79 L 4.35-5.85 10^6/uL Hemoglobin 9.1 L 13.3-17.7 G/DL Hematocrit 28 L 40-54 % Mean Corpuscular Volume 102 H 80-99 FL Mean Corpuscular Hemoglobin 33 25-34 PG Mean Corpuscular Hemoglobin Concent 32 32-36 G/DL Red Cell Distribution Width 13.7 10.0-14.5 % Platelet Count 262 130-400 10^3/uL Mean Platelet Volume 9.9 7.4-10.4 FL Neutrophils (%) (Auto) 94 H 42-75 % Lymphocytes (%) (Auto) 3 L 12-44 % Monocytes (%) (Auto) 3 0-12 % Eosinophils (%) (Auto) 0 0-10 % Basophils (%) (Auto) 0 0-10 % Neutrophils # (Auto) 5.5 1.8-7.8 X 10^3 Lymphocytes # (Auto) 0.2 L 1.0-4.0 X 10^3 Monocytes # (Auto) 0.2 0.0-1.0 X 10^3 Eosinophils # (Auto) 0.0 0.0-0.3 10^3/uL Basophils # (Auto) 0.0 0.0-0.1 10^3/uL Neutrophils % (Manual) 93 % Lymphocytes % (Manual) 1 % Monocytes % (Manual) 3 % Eosinophils % (Manual) 0 % Basophils % (Manual) 0 % Band Neutrophils 3 % Blood Morphology Comment NORMAL Prothrombin Time 16.1 H 12.2-14.7 SEC INR Comment 1.2 0.8-1.4 Activated Partial Thromboplast Time 30 24-35 SEC Sodium Level 137 135-145 MMOL/L Potassium Level 3.7 3.6-5.0 MMOL/L Chloride Level 109 H 98-107 MMOL/L Carbon Dioxide Level 17 L 21-32 MMOL/L Anion Gap 11 5-14 MMOL/L Blood Urea Nitrogen 23 H 7-18 MG/DL Creatinine 1.75 H 0.60-1.30 MG/DL Estimat Glomerular Filtration Rate 39 BUN/Creatinine Ratio 13 Glucose Level 95 70-105 MG/DL Calcium Level 8.0 L 8.5-10.1 MG/DL Corrected Calcium 9.1 8.5-10.1 MG/DL Total Bilirubin 0.4 0.1-1.0 MG/DL Aspartate Amino Transf (AST/SGOT) 44 H 5-34 U/L Alanine Aminotransferase (ALT/SGPT) 11 0-55 U/L Alkaline Phosphatase 64 40-136 U/L Total Protein 5.4 L 6.4-8.2 GM/DL Albumin 2.6 L 3.2-4.5 GM/DL Urine Color YELLOW Urine Clarity CLEAR Urine pH 5 5-9 Urine Specific [place] 1.015 L 1.016-1.022 Urine Protein 2+ H NEGATIVE Urine Glucose (UA) NEGATIVE NEGATIVE Urine Ketones 2+ H NEGATIVE Urine Nitrite NEGATIVE NEGATIVE Urine Bilirubin NEGATIVE NEGATIVE Urine Urobilinogen NORMAL NORMAL MG/DL Urine Leukocyte Esterase NEGATIVE NEGATIVE Urine RBC (Auto) 1+ H NEGATIVE Urine RBC 5-10 H /HPF Urine WBC 0-2 /HPF Urine Squamous Epithelial Cells NONE /HPF Urine Crystals NONE /LPF Urine Bacteria NEGATIVE /HPF Urine Casts NONE /LPF Urine Mucus NEGATIVE /LPF Urine Culture Indicated CULTURE PENDING Lactic Acid Level 0.78 0.50-2.00 MMOL/L Micro Results Microbiology 03/21/19 Influenza Types A,B Antigen (KEARA) - Final, Complete My Orders Orders - GIULIANO SOARES Cbc With Automated Diff (03/21/19 09:40) Comprehensive Metabolic Panel (03/21/19 09:40) Blood Culture (03/21/19 09:40) Sputum Culture (03/21/19 09:40) Urinalysis (03/21/19 09:40) Urine Culture (03/21/19 09:40) Protime With Inr (03/21/19 09:40) Partial Thromboplastin Time (03/21/19 09:40) Chest 1 View, Ap/Pa Only (03/21/19 09:40) Acetaminophen Tablet (Tylenol Tablet) (03/21/19 09:45) Ed Iv/Invasive Line Start (03/21/19 09:40) Ed Iv/Invasive Line Start (03/21/19 09:40) Vital Signs Adult Sepsis Patie Q15M (03/21/19 09:40) O2 (03/21/19 09:40) Remove Rings In Anticipation O (03/21/19 09:40) Lactic Acid Analyzer (03/21/19 09:40) Influenza A And B Antigens (03/21/19 09:40) Ns Iv 1000 Ml (Sodium Chloride 0.9%) (03/21/19 09:40) Cefepime Injection (Maxipime Injection) (03/21/19 09:45) Ed Iv/Invasive Line Start (03/21/19 09:40) Ns Iv 1000 Ml (Sodium Chloride 0.9%) (03/21/19 09:40) Manual Differential (03/21/19 09:35) Catheter(Urinary) Insert & Ass 03,15 (03/21/19 09:50) Acetaminophen Suppository (Tylenol Suppo (03/21/19 10:00) Ct Abdomen/Pelvis Wo (03/21/19 10:39) Fentanyl Injection (Sublimaze Injection (03/21/19 11:45) Medications Given in ED Current Medications Medications Dose Ordered Sig/Linette Route Start Time Stop Time Status Last Admin Dose Admin Acetaminophen 650 mg ONCE ONCE MI 03/21/19 10:00 03/21/19 10:01 DC 10/12/19 10:08 650 MG Cefepime HCl 1000 mg/Sterile Water 10 ml @ 200 mls/hr ONCE ONCE IV 03/21/19 09:45 03/21/19 09:47 DC 03/21/19 10:22 200 MLS/HR Vital Signs/I&O 03/21/19 03/21/19 09:33 11:24 Temp 38.7 38.1 Pulse 94 Resp 16 B/P (MAP) 138/77 (97) Pulse Ox 95 O2 Delivery Room Air Capillary Refill : Progress Note #1: Time: 09:49 Progress Note Tylenol for the fever, septic workup, influenza swab, 2 L of fluid which will be greater than 20 mL/kg. Heart rate just under 100 and regular. Progress Note #2: Time: 12:02 Progress Note Patient's fever continues to rise we gave him another 325 mg rectal Tylenol. Then took the blankets off of him. Diagnostic Imaging Diagonstic Imaging: Xray Plain Films/CT/US/NM/MRI: chest (1v) Comments [facility], [place] NAME: ZAFAR ULRICH [facility] REC#: [id number] PT STATUS: REG ER : 1945 PHYSICIAN: GIULIANO SOARES MD ADMIT DATE: 03/21/19/ER Draft Date of Exam:03/21/19 CHEST 1 VIEW, AP/PA ONLY CLINICAL INDICATION: Patient cholecystostomy placement 1 week ago. Patient has weakness. EXAM: Portable chest x-ray upright view. COMPARISONS: Portable chest x-ray dated 04/18/2018. FINDINGS: Lungs/pleura: There is interval mild left basilar atelectasis versus infiltrate. Otherwise, lungs are clear. There is no pneumothorax. There is no pleural effusion. Mediastinum: Unremarkable. Pulmonary vasculature: Unremarkable. Heart: Upper limits normal heart size for portable projection.. Bones/extrathoracic soft tissue: There are degenerative spurs involving the thoracic spine. IMPRESSION: 1: There is interval mild left basilar atelectasis versus infiltrate. 2: Otherwise, there is no radiographic evidence of acute cardiopulmonary process. Dictated on workstation # [id number] Dict: 03/21/19 1038 Trans: 03/21/19 1045 [id number] Interpreted by: RUTHIE ORTIZ MD Electronically signed by: Reviewed: Reviewed by Me Diagonstic Imaging: CT (without IV contrast) Plain Films/CT/US/NM/MRI: abdomen, pelvis Comments Patient has small bowel obstruction next to the ileostomy. There are small gas bubbles and free fluid around the anastomosis which could be left over from surgery versus an anastomotic leak. Reviewed: Reviewed by Me, Discussed w/Radiologist Departure Impression Primary Impression: Small bowel obstruction Additional Impressions: Ileocolic anastomotic leak RAY (acute kidney injury) Sepsis Qualified Codes: A41.9 - Sepsis, unspecified organism; R65.20 - Severe se psis without septic shock; N17.9 - Acute kidney failure, unspecified Disposition: 02 XFER SHT-TRM HOSP Condition: Stable Transfer Time Spoke to Accepting Phy: 11:45 Transfer Progress Notes Santana: left 1136. 1145: Dr Harrington general surgery on-call for Dr. Schilling accepts the patient to [place], [place]. Transfer Facility: [place], [place]. Method of Transfer: EMS Departure-Patient Inst. Referrals: BRANDY CORMIER DO (PCP/Family) Primary Care Physician GIULIANO SOARES Mar 21, 2019 09:48
[2019-03-21 09:53] LABS: BILIRUBIN,URINE NEGATIVE (NEGATIVE); CLARITY,URINE CLEAR; COLOR,URINE YELLOW; GLUCOSE, URINE (UA) NEGATIVE (NEGATIVE); KETONES,URINE 2+ (NEGATIVE); LEUKOCYTE ESTERASE ,URINE NEGATIVE (NEGATIVE); NITRITE,URINE NEGATIVE (NEGATIVE); PH,URINE 5 (5-9); PROTEIN,URINE 2+ (NEGATIVE); UROBILINOGEN,URINE NORMAL (NORMAL)
[2019-03-21 09:54] LABS: INR 1.2 (0.8-1.4); PROTHROMBIN TIME PATIENT 16.1 SEC (12.2-14.7)
[2019-03-21 09:59] LABS: ALBUMIN 2.6 GM/DL (3.2-4.5); BILIRUBIN,TOTAL 0.4 MG/DL (0.1-1.0); CREATININE SERUM 1.75 MG/DL (0.60-1.30); POTASSIUM 3.7 MMOL/L (3.6-5.0); TOTAL PROTEIN 5.4 GM/DL (6.4-8.2)
[2019-03-21] MEDS ORDERED: ACETAMINOPHEN 650 MG SUPP (TYLENOL) PR ONE (10:00)
[2019-03-21 10:09] LABS: BACTERIA,URINE NEGATIVE /HPF; WBC,URINE 0-2 /HPF
--- NOTE | 2019-03-21 10:10 | NUR ---
LAB IN ROOM DRAWING BLOOD CULTURES.
[2019-03-21 10:36] LABS: BAND NEUTROPHILS 3 %; BASOPHILS % (MANUAL) 0 %; EOSINOPHILS % (MANUAL) 0 %; LYMPHOCYTES % (MANUAL) 1 %; MONOCYTES % (MANUAL) 3 %; NEUTROPHILS % (MANUAL) 93 %; RBC MORPH NORMAL
--- NOTE | 2019-03-21 10:40 | NUR ---
IN TALKING TO PT AND AT THIS TIME.
--- NOTE | 2019-03-21 10:46 | Diagnostic Imaging Report ---
CLINICAL INDICATION: Patient cholecystostomy placement 1 week ago. Patient has weakness. EXAM: Portable chest x-ray upright view. COMPARISONS: Portable chest x-ray dated 04/18/2018. FINDINGS: Lungs/pleura: There is interval mild left basilar atelectasis versus infiltrate. Otherwise, lungs are clear. There is no pneumothorax. There is no pleural effusion. Mediastinum: Unremarkable. Pulmonary vasculature: Unremarkable. Heart: Upper limits normal heart size for portable projection.. Bones/extrathoracic soft tissue: There are degenerative spurs involving the thoracic spine. IMPRESSION: 1: There is interval mild left basilar atelectasis versus infiltrate. 2: Otherwise, there is no radiographic evidence of acute cardiopulmonary process. Dictated by: Dictated on workstation # [id number]
--- NOTE | 2019-03-21 11:42 | Diagnostic Imaging Report ---
Clinical indication: Patient with history of renal cancer and for abdominal aortic aneurysm seen on previous CT. Colostomy placed a week ago. Patient oozing from stoma. Patient has weakness. Patient had surgery 10 days ago. Exam: CT scan of the abdomen and pelvis performed without IV or enteric contrast. Comparison: CT scan of the chest, abdomen, and pelvis without contrast dated 02/13/2019. Findings: There is a small left pleural effusion and mild bibasilar atelectasis. Parenchymal bands of left lung base are noted which may be related to atelectasis or scarring. There are hypertrophic spurs involving the lower thoracic spinal lumbar spine. Lower lumbar spine facet arthropathy is seen. Stable gallstone. There is no gallbladder wall thickening or adjacent gallbladder fat stranding. Stable atrophic appearance of the pancreas. The liver, gallbladder, and adrenal glands are unremarkable. Stable 3.8 cm cyst involving the upper pole left kidney. There is no hydronephrosis or stone seen. Irvin catheter is in the bladder and the bladder is decompressed. There is interval development of small amount of free fluid in the pelvis. There is interval postoperative changes with surgical anastomosis in the low colonic region. There is a small to moderate amount of fluid which demonstrates some area of increased density, and air, located in the posterior pelvis region which measures 4.0 cm x 5.0 cm x 9.1 cm (AP x Trans x CC). This is seen posterior and superior to the anastomotic region. Depending on timing of surgery, this may be from postoperative changes, but perforation with abscess cannot be completely excluded. Double barrel right abdominal ileostomy is noted. There is dilated loops of small bowel with air-fluid levels within the abdomen. Largest loop of bowel measures roughly 4.2 cm in AP dimension. The transition point is at the ileostomy site with dilation of the intra-abdominal portion and collapse of the extra-abdominal portion. The remainder of the intestines are unremarkable. There is a distal abdominal aortic aneurysm measuring 3.0 cm in AP dimension, and measured on the sagittal sequence series 602, image 39. There is vascular ectasia of the left common iliac artery measuring 1.9 cm. Again seen multiple lymph nodes in the periaortic region which have slightly increased in size. Largest marker lymph node is 6 mm x 16 mm in AP and transverse dimensions. Impression: 1: There are interval postop changes with double barrel right ileostomy and surgical resection and anastomosis in the low pelvic/colonic region. There is a fluid collection with air and fluid in the posterior pelvis region adjacent to the anastomosis. This may represent a postop seroma/blood, but anastomotic leak with adjacent abscess cannot be completely excluded. 2: There is small bowel obstruction with transition point at the ileostomy site. 3: Again seen cholelithiasis with no CT evidence of cholecystitis. Results of this report was discussed with Dr. Dixon Joseph via the telephone on 03/21/2019 at 1125. Dictated by: Dictated on workstation # [id number]
[2019-03-21] MEDS ORDERED: fentaNYL INJECTION 100 MCG/2 ML AMP IVP ONE (11:45)
--- NOTE | 2019-03-21 12:08 | NUR ---
CT NOTIFIED TO CLOUD IMAGES TO [facility]. THEY STATE THEY HAVE DONE THIS ALREADY.
[2019-03-21] MEDS ORDERED: ACETAMINOPHEN 325 MG SUPP (TYLENOL) PR ONE (12:45)
--- NOTE | 2019-03-21 12:50 | NUR ---
[facility]PATCH NOTIFIED OF PENDING TRANSFER.
--- NOTE | 2019-03-21 13:34 | NUR ---
FAMILY UPDATED THAT EMS SHOULD BE HERE ANY TIME.
--- NOTE | 2019-03-21 13:40 | NUR ---
[facility] HERE FOR PT.
[2019-03-21 13:46] VITALS: BP 111/87
== END 2019-03-21 13:46 | disposition short-term general hospital (02) ==
LOC: EDUNIT# 09:33 → ER 09:34
DX: A41.9 Sepsis, unspecified organism (principal); R65.20 Severe sepsis without septic shock; N17.9 Acute kidney failure, unspecified; K56.609 Unspecified intestinal obstruction, unspecified as to partial versus complete obstruction; K91.89 Other postprocedural complications and disorders of digestive system; I10 Essential (primary) hypertension; E78.00 Pure hypercholesterolemia, unspecified; G20 Parkinson's disease; J43.9 Emphysema, unspecified; K21.9 Gastro-esophageal reflux disease without esophagitis; E03.9 Hypothyroidism, unspecified; F31.9 Bipolar disorder, unspecified; F17.210 Nicotine dependence, cigarettes, uncomplicated; Z85.828 Personal history of other malignant neoplasm of skin; Z86.73 Personal history of transient ischemic attack (TIA), and cerebral infarction without residual deficits; Z85.038 Personal history of other malignant neoplasm of large intestine
CPT/HCPCS: 36415; 51702; 71045; 74176; 80053; 81000; 83605; 85007; 85027; 85610; 85730; 87040; 87088; 87804; 96361; 96374; 96375

== ENCOUNTER 2019-05-02 19:54 | Inpatient (IN) | payer MEDICARE, OTHER ==
[~2019-05-02] VITALS: Ht 177.8 cm; Wt 90.0 kg
[~2019-05-02 19:54] MED LIST changes: +GENTAMICIN 100 MG/NS 100 ML IVPB IV ONE
[2019-05-02] MEDS ORDERED: methylPREDNISolone 125 MG (Solu-MEDROL) VIAL IV STA (20:04)
[2019-05-02 20:14] LABS: BASOPHILS % (AUTO) 0 % (0-10); EOSINOPHILS # (AUTO) 0.2 10^3/uL (0.0-0.3); EOSINOPHILS % (AUTO) 4 % (0-10); HEMATOCRIT 28 % (40-54); HEMOGLOBIN 9.1 G/DL (13.3-17.7); LYMPHOCYTES # (AUTO) 0.6 X 10^3 (1.0-4.0); LYMPHOCYTES % (AUTO) 14 % (12-44); MEAN CORPUSCULAR HEMOGLOBIN 32 PG (25-34); MEAN CORPUSCULAR HGB CONC 32 G/DL (32-36); MEAN CORPUSCULAR VOLUME 99 FL (80-99); MEAN PLATELET VOLUME 9.1 FL (7.4-10.4); MONOCYTES # (AUTO) 0.5 X 10^3 (0.0-1.0); MONOCYTES % (AUTO) 10 % (0-12); NEUTROPHILS # (AUTO) 3.3 X 10^3 (1.8-7.8); NEUTROPHILS % (AUTO) 72 % (42-75); PLATELET COUNT 244 10^3/uL (130-400); WHITE BLOOD COUNT 4.5 10^3/uL (4.3-11.0)
--- NOTE | 2019-05-02 20:14 | NUR ---
Patient is complaining of abdominal pain to lower abdomen. He states this has been present since his colon surgery.
[2019-05-02] MEDS ORDERED: RT-ALBUTEROL/IPRATROPIUM 3 ML (DUONEB) VIAL INH ONE (20:15)
[2019-05-02] MEDS ORDERED: DEXAMETHASONE 4 MG/ML SDV (DECADRON) IH ONE (20:15)
[2019-05-02] MEDS ORDERED: CEFEPIME INJECTION 1,000 MG in WATER (STERILE) FOR INJECTION 10 ML IV ONE ×2 (20:15→22:30)
--- NOTE | 2019-05-02 20:15 | NUR ---
Lactic acid and 1st set of blood cultures collected from left AC.
[2019-05-02 20:23] LABS: INR 1.2 (0.8-1.4); PROTHROMBIN TIME PATIENT 15.9 SEC (12.2-14.7)
[2019-05-02 20:27] LABS: ALANINE AMINOTRANSFERASE < 6 U/L (0-55); ALBUMIN 3.3 GM/DL (3.2-4.5); ALKALINE PHOSPHATASE 56 U/L (40-136); AMYLASE 53 U/L (25-125); BILIRUBIN,TOTAL 0.3 MG/DL (0.1-1.0); BUN/CREATININE RATIO 12; CALCIUM 8.7 MG/DL (8.5-10.1); CARBON DIOXIDE 21 MMOL/L (21-32); CHLORIDE 103 MMOL/L (98-107); CREATINE KINASE 17 U/L (30-200); CREATININE SERUM 1.73 MG/DL (0.60-1.30); GFR ESTIMATED 39; GLUCOSE 107 MG/DL (70-105); LIPASE 17 U/L (8-78); MAGNESIUM 1.5 MG/DL (1.6-2.4); POTASSIUM 4.1 MMOL/L (3.6-5.0); SODIUM 137 MMOL/L (135-145); TOTAL PROTEIN 6.6 GM/DL (6.4-8.2)
--- NOTE | 2019-05-02 20:28 | NUR ---
labor custodian in room for 2nd set of blood cultures.
[2019-05-02 20:34] LABS: ABG BASE EXCESS 0.2 MMOL/L (-2.5-2.5); ABG OXYGEN SATURATION 94 % (94-100); ABG PCO2 35 MMHG (35-45); ABG PH 7.45 (7.37-7.43); ABG PO2 74 MMHG (79-93); ABG TCO2 24.8 MMOL/L (21.0-31.0); ALLENS TEST POSITIVE; INSPIRED O2 2; PATIENT TEMP 36.9; VENTILATOR NO
[2019-05-02 20:46] LABS: CREATINE KINASE MB 0.6 NG/ML (<6.6); TSH (THYROID ANALYZER) 1.36 UIU/ML (0.35-4.94)
--- NOTE | 2019-05-02 20:49 | ED General ---
General Chief Complaint: General Problems/Pain Stated Complaint: WEAKNESS Nursing Triage Note: Patient brought to ER via [facility] with complaint of generalized weakness. Patient was hospitalized approximately 8 weeks ago due to colon cancer and had a colon resection with colostomy placement. Patient was then released to [facility] for physical therapy and was released on 04/24/19 to home. Per EMS patient today began having generalized weakness and not eating today. Patient states he normally can walk at home with a cane and was able to walk earlier today. Patient is awake and attempts to answer questions but stops talking in mid sentence and does not complete sentences. Patient also does not remember medical history or able to answer questions appropriately on surgeries and history. Nursing Sepsis Screen: No Definite Risk Source of Information: Patient (EXTREMELY POOR HISTORIAN), EMS, Old Records, Spouse ( GIVES MOST INFORMATION) History of Present Illness Date Seen by Provider: May 02, 2019 Time Seen by Provider: 19:52 Initial Comments PT ARRIVES VIA EMS FROM HOME PT HAS HAD DECREASED APPETITE AND GENERALIZED WEAKNESS TODAY, PER EMS ARRIVES LATER, AND STATES THAT PT HAS REFUSED TO EAT FOR THE LAST 2 DAYS--SHE STATES "HE'S DONE THIS BEFORE--HE JUST REFUSES TO EAT" "HE REFUSES TO DO ANYTHING HE'S SUPPOSED TO" STATES HE HAS NOT URINATED SINCE NOON HAS HAD INCREASING WEAKNESS FOR THE LAST 2 DAYS, AND TONIGHT HE WAS UNABLE TO GET OUT OF THE LIFT CHAIR, EVEN WITH ASSISTANCE FROM FAMILY. 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 STATES HE GETS A FACIAL DROOP AND UNILATERAL WEAKNESS FREQUENTLY WITH HIS "SUNDOWNER'S" --WHICH RESOLVE ON THEIR OWN. 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 DISMISSED 03/20/19 PT WAS SEEN IN THIS ER 03/21/19 WITH SMALL BOWEL OBSTRUCTION AND POSSIBLE ILEOSTOMAL LEAK AND TRANSFERRED TO [facility] PT WAS HOSPITALIZED UNTIL 03/31/19--NO ADDITIONAL SURGERY WAS DONE AT THAT TIME HE WAS THEN TRANSFERRED / ADMITTED TO [facility] ON 03/31/19 AND WAS MOVED BACK HOME ON 04/24/19--HAD UTI DX 04/17/19 AND WAS PUT ON ANTIBIOTICS. PT HAS HISTORY OF COPD, BUT HAD NOT BEEN ON HOME O2 UNTIL HE WAS RECENTLY HOSPITALIZED, AND HAS BEEN ON O2 AT 2L/NC SINCE THEN EMS REPORT O2 SAT OF 90% ON ROOM AIR--UP TO 96% ON 2L / NC PT HAS NEB TREATMENTS AND SYMBICORT AT HOME, BUT PT HAS REFUSED TO USE EITHER. PT DENIES COUGH NO REPORTED FEVER PT DENIES FEELING SHORT OF BREATH STATES SHE COULD HEAR HIM WHEEZING TODAY. STATES PT HAS CONTINUED TO SMOKE SINCE HE HAS BEEN DISMISSED FROM THE HOSPITAL. SMOKES 2 1/2 PPD ALL HIS LIFE SEE OLD CHARTS FOR DETAILS OF RECENT VISITS PCP: DR. BRAXTON Allergies and Home Medications Allergies Coded Allergies: No Known Drug Allergies (Unverified , 08/19/11) Home Medications Alprazolam 0.5 Mg Tablet, 0.5 MG PO BID, (Reported) Alprazolam 2 Mg Tab.er.24h, 2 MG PO DAILY, (Reported) Budesonide/Formoterol Fumarate 10.2 Gm Hfa.aer.ad, 2 PUFF IH BID, (Reported) Calcium Carbonate/Vitamin D3 1 Each Tablet, 1 EACH PO DAILY, (Reported) Carbidopa/Levodopa 1 Each Tablet, 1 EACH PO QID, (Reported) Cetirizine Hcl 5 Mg Tablet, 5 MG PO DAILY PRN for SINUS ALLERGIES, (Reported) Divalproex Sodium 250 Mg Tab.er.24h, 250 MG PO BID, (Reported) Doxycycline Hyclate 100 Mg Tablet, 100 MG PO BID, (Reported) Felodipine 10 Mg Tab.er.24h, 10 MG PO DAILY, (Reported) Folic Acid 1 Mg Tab, 1 MG PO DAILY, (Reported) Gemfibrozil 600 Mg Tablet, 600 MG PO BID, (Reported) Hydrocodone/Acetaminophen 1 Each Tablet, 1 TAB PO Q4H PRN for PAIN-MODERATE, (Reported) Levetiracetam 750 Mg Tablet, 750 MG PO BID, (Reported) Levothyroxine Sodium 112 Mcg Tablet, 112 MCG PO DAILY, (Reported) Lisinopril 10 Mg Tablet, 10 MG PO DAILY, (Reported) Lovastatin 10 Mg Tablet, 5 MG PO HS, (Reported) take 1/2 of 10mg tab Omeprazole 40 Mg Capsule.dr, 40 MG PO DAILY, (Reported) Risperidone 0.5 Mg Tablet, 0.5 MG PO DAILY, (Reported) Risperidone 0.5 Mg Tablet, 0.75 MG PO HS, (Reported) take 1 1/2 of .5mg tab Sertraline HCl 100 Mg Tablet, 100 MG PO BID, (Reported) Sertraline HCl 50 Mg Tablet, 50 MG PO BID, (Reported) Sulindac 200 Mg Tablet, 200 MG PO BID, (Reported) Patient Home Medication List Home Medication List Reviewed: Yes Review of Systems Review of Systems Constitutional: see HPI; No fever; malaise, weakness (UNABLE TO GET OUT OF LIFT CHAIR ) Respiratory: see HPI, short of breath Cardiovascular: No chest pain Gastrointestinal: abdominal pain (ONGOING LOWER ABDOMINAL PAIN--AT SITE OF RECENT SURGERY. ), loss of appetite; No vomiting Psychiatric/Neurological: See HPI Past Kuqjifs-Pyffbg-Ymgsmr Hx Patient Social History Alcohol Use: Past History (30 PACK OR MORE A DAY OF BEER) Recreational Drug Use: No Smoking Status: Current Everyday Smoker (2 1/2 PPD ALL OF LIFE) Type Used: Cigarettes 2nd Hand Smoke Exposure: Yes Recent Foreign Travel: No Contact w/Someone Who Travel: No Recent Infectious Disease Expo: No Recent Hopitalizations: Yes Physical Abuse: No Sexual Abuse: No Mistreated: No Fear: No Immunizations Up To Date PED Vaccines UTD: Yes Date of Pneumonia Vaccine: Mar 10, 2010 Date of Influenza Vaccine: Apr 10, 2019 Seasonal Allergies Seasonal Allergies: No Past Medical History Surgeries: Yes (BRAIN ANEURYSM AND HEMORRHAGE X 2 REQUIRING CRAINIOTOMY; EGD/CO LONOSCOPIES WITH PREVIOUS POLYPECTOMIES--COLON/RECTAL RESECTION WITH COLOSTOMY 03/11/19 AT [facility]/DR. DUPREE; REMOVAL OF SKIN CANCER ON CHEST; BILATERAL CATARACT SURGERY) Abdominal, Bowel Surgery, Eye Surgery, Neurological Respiratory: Yes (STARTED ON HOME O2 AT 2L/NC 03/2019) COPD, Emphysema Currently Using CPAP: No Cardiac: Yes (DVT'S BY HISTORY) Deep Vein Thrombosis, High Cholesterol, Hypertension Neurological: Yes (CEREBRAL ANEURYSM /INTRACRANIAL BLEED X 2--S/P CRANIOTOMY--LAST INTRACRANIAL BLEED 03/10/2018--TRANSFERRED TO [facility]; SUSPECTED DEMENTIA WITH MEMORY IMPAIRMENT AND SYMPTOMS OF "SUNDOWNER'S" PER ; PARKINSON'S; CEREBELLAR ATAXIA; CVA'S/TIA'S --MULTIPLE ) Dementia, Stroke, TIA Reproductive Disorders: No Genitourinary: Yes (CHRONIC RENAL FAILURE/INSUFFICIENCY--NO DIALYSIS) Renal Failure Gastrointestinal: Yes (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 DUPREE; PRIOR COLONOSCOPY WITH POLYPECTOMIES; EGD'S; DIVERTICULOSIS NOTED ON COLONOSCOPIES) Gastroesophageal Reflux, Diverticulosis, Chronic Diarrhea Musculoskeletal: Yes (CHRONIC GENERALIZED PAIN COMPLAINTS--NARCOTIC DEPENDENCY) Arthritis, Chronic Back Pain Endocrine: Yes (B 12 DEFICIENCY) Hypothyroidsim HEENT: Yes (BILATERAL CATARACT SURGERY) Cataract Cancer: Yes (SQUAMOUS CELL CANCER OF CHEST REMOVED; COLON/RECTAL RESECTION AND COLOSTOMY 03/11/19 AT [facility]/DR. DUPREE) Skin, Colon Did You Recieve Any Treatments: Yes What Type of Treatment Did You: Surgical Intervention Psychosocial: Yes (HX OF ALCOHOLISM; EXPLOSIVE BEHAVIOR AT TIMES. "SUNDOWNER'S" SYMPTOMS PER --"PERSONALITY CHANGE" ) Anxiety, Bipolar, Personality Disorder, Depression Integumentary: Yes (HX OF CELLULITIS; SKIN CANCER REMOVED FROM CHEST) Blood Disorders: No Family Medical History TREATED FOR [place] SPOTTED FEVER 02/2019 Physical Exam Vital Signs Vital Signs - First Documented 05/02/19 19:54 Temp 37.4 Pulse 98 Resp 18 B/P (MAP) 124/60 (81) Pulse Ox 94 O2 Delivery Room Air O2 Flow Rate 3.00 FiO2 92 Capillary Refill : Less Than 3 Seconds Height, Weight, BMI Height: 6'0.00" Weight: 185lbs. 0.0oz. 83.211673fi; 26.00 BMI Method:Stated General Appearance: Other (LETHARGIC, VERY FLAT AFFECT. UNKEMPT. REEKS OF CIGARETTES, MILDLY DYSPNEIC ON ARRIVAL. ) HEENT: PERRL/EOMI, Other (EXTENSIVE YELLOW TOBACCO STAINING TO LIPS AND ALL AROUND MOUTH/CHIN AREA. ) Neck: Normal Inspection Respiratory: Decreased Breath Sounds, Wheezing (DIFFUSE EXPIRATORY WHEEZING WITH DECREASED AERATION IN ALL LUNG ESTRADA), Other (MILDLY DYSPNEIC AT REST; ) Cardiovascular: Regular Rate, Rhythm, No JVD, No Murmur Gastrointestinal: Normal Bowel Sounds, Soft, Tenderness (MILD DIFFUSE LOWER ABDOMINAL TENDERNESS. ), Other (COLOSTOMY IN PLACE AND INTACT. NO SIGNS OF INFECTION. ) Back: No CVA Tenderness Extremity: No Calf Tenderness, No Pedal Edema Neurologic/Psychiatric: No Motor/Sensory Deficits (GROSSLY INTACT. ), fiber technologist II- XII Norm as Tested, Other (AWAKE, BUT MILDLY LETHARGIC, VERY FLAT AFFECT. POOR MEMORY AND VERY SLOW MENTATION. PT FREQUENTLY SIMPLY STOPS TALKING MID- SENTENCE. ) Skin: Normal Color, Warm/Dry, Tattoos/Piercings (MULTIPLE TATTOOS), Other (EXTENSIVE SORES/SCABS/SCARS / POST -INFLAMMATORY CHANGES TO ARMS. DIFFUSE "SAGGING" SKIN--DUE TO RECENT SIGNIFICANT WEIGHT LOSS. HEAVY TOBACCO STAINGING OF FINGERS AND AROUND MOUTH/CHIN; ) Focused Exam Lactate Level 05/02/19 20:15: Lactic Acid Level 1.04 Lactic Acid Level Progress/Results/Core Measures Suspected Sepsis Recent Fever Within 48 Hours: No Infection Criteria Present: None New/Unexplained Altered Menta: No Sepsis Screen: No Definite Risk SIRS Temperature: Pulse: 98 Respiratory Rate: 18 Laboratory Tests 05/02/19 19:59: White Blood Count 4.5 05/03/19 04:58: White Blood Count 3.2L Blood Pressure 124 /60 Mean: 81 05/02/19 20:15: Lactic Acid Level 1.04 Laboratory Tests 05/02/19 19:59: Creatinine 1.73H, INR Comment 1.2, Platelet Count 244, Total Bilirubin 0.3 05/03/19 04:58: Creatinine 1.58H, Platelet Count 252, Total Bilirubin 0.2 Results/Orders Lab Results Laboratory Tests Test 05/02/19 19:59 05/02/19 20:05 05/02/19 20:15 05/02/19 20:41 Range/Units White Blood Count 4.5 4.3-11.0 10^3/uL Red Blood Count 2.84 L 4.35-5.85 10^6/uL Hemoglobin 9.1 L 13.3-17.7 G/DL Hematocrit 28 L 40-54 % Mean Corpuscular Volume 99 80-99 FL Mean Corpuscular Hemoglobin 32 25-34 PG Mean Corpuscular Hemoglobin Concent 32 32-36 G/DL Red Cell Distribution Width 15.0 H 10.0-14.5 % Platelet Count 244 130-400 10^3/uL Mean Platelet Volume 9.1 7.4-10.4 FL Neutrophils (%) (Auto) 72 42-75 % Lymphocytes (%) (Auto) 14 12-44 % Monocytes (%) (Auto) 10 0-12 % Eosinophils (%) (Auto) 4 0-10 % Basophils (%) (Auto) 0 0-10 % Neutrophils # (Auto) 3.3 1.8-7.8 X 10^3 Lymphocytes # (Auto) 0.6 L 1.0-4.0 X 10^3 Monocytes # (Auto) 0.5 0.0-1.0 X 10^3 Eosinophils # (Auto) 0.2 0.0-0.3 10^3/uL Basophils # (Auto) 0.0 0.0-0.1 10^3/uL Prothrombin Time 15.9 H 12.2-14.7 SEC INR Comment 1.2 0.8-1.4 Activated Partial Thromboplast Time 38 H 24-35 SEC Sodium Level 137 135-145 MMOL/L Potassium Level 4.1 3.6-5.0 MMOL/L Chloride Level 103 98-107 MMOL/L Carbon Dioxide Level 21 21-32 MMOL/L Anion Gap 13 5-14 MMOL/L Blood Urea Nitrogen 21 H 7-18 MG/DL Creatinine 1.73 H 0.60-1.30 MG/DL Estimat Glomerular Filtration Rate 39 BUN/Creatinine Ratio 12 Glucose Level 107 H 70-105 MG/DL Calcium Level 8.7 8.5-10.1 MG/DL Corrected Calcium 9.3 8.5-10.1 MG/DL Magnesium Level 1.5 L 1.6-2.4 MG/DL Total Bilirubin 0.3 0.1-1.0 MG/DL Aspartate Amino Transf (AST/SGOT) 12 5-34 U/L Alanine Aminotransferase (ALT/SGPT) < 6 0-55 U/L Alkaline Phosphatase 56 40-136 U/L Total Creatine Kinase 17 L 30-200 U/L Creatine Kinase MB 0.6 <6.6 NG/ML Troponin I < 0.028 <0.028 NG/ML B-Type Natriuretic Peptide 179.7 H <100.0 PG/ML Total Protein 6.6 6.4-8.2 GM/DL Albumin 3.3 3.2-4.5 GM/DL Amylase Level 53 25-125 U/L Lipase 17 8-78 U/L TSH [place] Testing 1.36 0.35-4.94 UIU/ML Valproic Acid (Depakene) Level 9.2 L 50.0-100.0 UG/ML Serum Alcohol < 10 <10 MG/DL Blood Gas Puncture Site RIGHT WRIST Blood Gas Patient Temperature 36.9 Arterial Blood pH 7.45 H 7.37-7.43 Arterial Blood Partial Pressure CO2 35 35-45 MMHG Arterial Blood Partial Pressure O2 74 L 79-93 MMHG Arterial Blood HCO3 24 23-27 MMOL/L Arterial Blood Total CO2 24.8 21.0-31.0 MMOL/L Arterial Blood Oxygen Saturation 94 94-100 % Arterial Blood Base Excess 0.2 -2.5-2.5 MMOL/L Luis Test POSITIVE Blood Gas Ventilator Setting NO Blood Gas Inspired Oxygen 2 Lactic Acid Level 1.04 0.50-2.00 MMOL/L Urine Color YELLOW Urine Clarity CLEAR Urine pH 6.0 5-9 Urine Specific [place] 1.020 1.016-1.022 Urine Protein NEGATIVE NEGATIVE Urine Glucose (UA) NEGATIVE NEGATIVE Urine Ketones NEGATIVE NEGATIVE Urine Nitrite NEGATIVE NEGATIVE Urine Bilirubin NEGATIVE NEGATIVE Urine Urobilinogen 0.2 < = 1.0 MG/DL Urine Leukocyte Esterase NEGATIVE NEGATIVE Urine RBC (Auto) NEGATIVE NEGATIVE Urine RBC 0-2 /HPF Urine WBC 0-2 /HPF Urine Crystals NONE /LPF Urine Bacteria NEGATIVE /HPF Urine Casts NONE /LPF Urine Mucus NEGATIVE /LPF Urine Yeast MODERATE H /HPF Urine Culture Indicated CULTURE PENDING Test 05/03/19 04:58 Range/Units White Blood Count 3.2 L 4.3-11.0 10^3/uL Red Blood Count 2.82 L 4.35-5.85 10^6/uL Hemoglobin 9.0 L 13.3-17.7 G/DL Hematocrit 28 L 40-54 % Mean Corpuscular Volume 99 80-99 FL Mean Corpuscular Hemoglobin 32 25-34 PG Mean Corpuscular Hemoglobin Concent 32 32-36 G/DL Red Cell Distribution Width 14.8 H 10.0-14.5 % Platelet Count 252 130-400 10^3/uL Mean Platelet Volume 9.8 7.4-10.4 FL Neutrophils (%) (Auto) 87 H 42-75 % Lymphocytes (%) (Auto) 12 12-44 % Monocytes (%) (Auto) 1 0-12 % Eosinophils (%) (Auto) 0 0-10 % Basophils (%) (Auto) 0 0-10 % Neutrophils # (Auto) 2.8 1.8-7.8 X 10^3 Lymphocytes # (Auto) 0.4 L 1.0-4.0 X 10^3 Monocytes # (Auto) 0.0 0.0-1.0 X 10^3 Eosinophils # (Auto) 0.0 0.0-0.3 10^3/uL Basophils # (Auto) 0.0 0.0-0.1 10^3/uL Sodium Level 135 135-145 MMOL/L Potassium Level 4.8 3.6-5.0 MMOL/L Chloride Level 106 98-107 MMOL/L Carbon Dioxide Level 16 L 21-32 MMOL/L Anion Gap 13 5-14 MMOL/L Blood Urea Nitrogen 24 H 7-18 MG/DL Creatinine 1.58 H 0.60-1.30 MG/DL Estimat Glomerular Filtration Rate 43 BUN/Creatinine Ratio 15 Glucose Level 177 H 70-105 MG/DL Calcium Level 8.9 8.5-10.1 MG/DL Corrected Calcium 9.5 8.5-10.1 MG/DL Magnesium Level 2.4 1.6-2.4 MG/DL Total Bilirubin 0.2 0.1-1.0 MG/DL Aspartate Amino Transf (AST/SGOT) 13 5-34 U/L Alanine Aminotransferase (ALT/SGPT) 12 0-55 U/L Alkaline Phosphatase 54 40-136 U/L Total Protein 6.5 6.4-8.2 GM/DL Albumin 3.3 3.2-4.5 GM/DL Procalcitonin 0.08 <0.10 NG/ML Micro Results Microbiology 05/02/19 Influenza Types A,B Antigen (KEARA) - Final, Complete My Orders Orders - SHANNA DURAN DO Cbc With Automated Diff (05/02/19 20:04) Comprehensive Metabolic Panel (05/02/19 20:04) Blood Culture (05/02/19 20:04) Sputum Culture (05/02/19 20:04) Urinalysis (05/02/19 20:04) Urine Culture (05/02/19 20:04) Protime With Inr (05/02/19:04) Partial Thromboplastin Time (05/02/19:04) Chest 1 View, Ap/Pa Only (05/02/19 20:04) Ed Iv/Invasive Line Start (05/02/19 20:04) Ed Iv/Invasive Line Start (05/02/19 20:04) Ekg Tracing (05/02/19:) Troponin I (05/02/19 20:04) Vital Signs Adult Sepsis Patie Q15M (05/02/19 20:04) O2 (05/02/19:04) Remove Rings In Anticipation O (05/02/19:04) Lactic Acid Analyzer (05/02/19 20:04) Influenza A And B Antigens (05/02/19 20:04) Cefepime Injection (Maxipime Injection) (05/02/19 20:15) Albuterol/Ipra Inhalation Soln (Duoneb I (05/02/19 20:15) Dexamethasone Injection (Decadron Inject (05/02/19 20:15) Rt Request For Service (05/02/19 20:04) Methylprednisolone Sod Succ (Solu-Medrol (05/02/19 20:04) Monitor-Rhythm Ecg Trace Only (05/02/19 20:04) Svn Small Volume Nebulizer (05/02/19 20:04) Alcohol (05/02/19 20:04) Amylase (05/02/19 20:04) BNP (05/02/19 20:04) Creatine Kinase (05/02/19 20:04) Creatine Kinase Mb (05/02/19 20:04) Lipase (05/02/19 20:04) Magnesium (05/02/19 20:04) Thyroid Analyzer (05/02/19 20:04) Catheter(Urinary) Insert & Ass 03,15 (05/02/19 20:28) Arterial Blood Gas (05/02/19 20:29) Magnesium 1 Gm/100 Ml Ivpb (Magnesium Farmer (05/02/19 21:15) Valproic Acid (05/02/19 21:45) Cefepime Injection (Maxipime Injection) (05/02/19 22:30) Medications Given in ED Current Medications Medications Dose Ordered Sig/Linette Route Start Time Stop Time Status Last Admin Dose Admin Albuterol/ Ipratropium 3 ml ONCE ONCE INH 05/02/19 20:15 05/02/19 20:16 DC 05/02/19 20:27 3 ML Cefepime HCl 1000 mg/Sterile Water 10 ml @ 200 mls/hr ONCE ONCE IV 05/02/19 20:15 05/02/19 20:17 DC 05/02/19 20:37 200 MLS/HR Dexamethasone Sodium Phosphate 20 mg ONCE ONCE IH 05/02/19 20:15 05/02/19 20:16 DC 05/02/19 20:27 20 MG Vital Signs/I&O 05/02/19 05/02/19 05/02/19 05/02/19 19:54 19:54 20:28 23:28 Temp 37.4 Pulse 98 74 Resp 18 24 B/P (MAP) 124/60 (81) 117/62 (81) Pulse Ox 94 92 95 94 O2 Delivery Room Air Nasal Cannula Nasal Cannula Nasal Cannula O2 Flow Rate 3.00 2.00 3.00 FiO2 92 05/02/19 05/03/19 05/03/19 05/03/19 23:49 00:00 00:32 01:15 Temp 36.8 Pulse 77 74 76 Resp 19 B/P (MAP) 118/62 Pulse Ox 93 90 O2 Delivery Room Air Nasal Cannula O2 Flow Rate 2.00 05/03/19 05/03/19 05/03/19 02:01 04:00 06:17 Temp 36.4 Pulse 69 Resp 21 B/P (MAP) 112/71 (85) Pulse Ox 92 95 92 O2 Delivery Nasal Cannula Room Air Nasal Cannula O2 Flow Rate 2.00 2.00 05/03/19 00:00 Intake Total 10 ml Balance 10 ml Capillary Refill : Less Than 3 Seconds Blood Pressure Mean: 81 POS Progress Note : Progress Note O2 SATS MID TO UPPER 90'S ON 2L/NC GIVEN NEB TREATMENT WITH DECREASED WHEEZING AND NO LONGER DYSPNEIC. NO DETERIORATION IN PT'S CONDITION DURING ER STAY ECG Initial ECG Impression Date: May 02, 2019 Initial ECG Impression Time: 20:20 Initial ECG Rate: 89 Initial ECG Rhythm: Normal Sinus Diagnostic Imaging Comments CXR--NON-SPECIFIC LEFT BASILAR AIRSPACE CONSOLIDATION, WHICH MAY RELATE TO ATELECTASIS, INFILTRATE AND/OR SMALL EFFUSION, BILATERAL INTERSTITIAL OPACITIES--INTERSTITIAL EDEMA OR ATYPICAL INFECTION POSSIBLE--PER RADIOLOGIST REPORT AT [id number] Reviewed: Reviewed by Me Departure Communication (Admissions) 2214--SPOKE WITH DR. MOORE, HOSPITALIST, ACCEPTS PT FOR ADMIT Impression Primary Impression: Pneumonia Additional Impressions: COPD exacerbation Hypoxia Hypomagnesemia Generalized weakness RECENT DX OF COLON CANCER--S/P COLON RESECTION AND COLOSTOMY SUSPECT DEMENTIA INABILITY TO CARE FOR SELF Disposition: ADMITTED INPATIENT Condition: Improved Admissions Decision to Admit Reason: Admit from ER (General) Decision to Admit/Date: May 02, 2019 Time/Decision to Admit Time: 22:15 Departure-Patient Inst. Referrals: BRANDY BRAXTON DO (PCP/Family) Primary Care Physician SHANNA DURAN DO May 02, 2019 20:49 POS
[2019-05-02 20:50] LABS: BILIRUBIN,URINE NEGATIVE (NEGATIVE); CLARITY,URINE CLEAR; COLOR,URINE YELLOW; GLUCOSE, URINE (UA) NEGATIVE (NEGATIVE); KETONES,URINE NEGATIVE (NEGATIVE); LEUKOCYTE ESTERASE ,URINE NEGATIVE (NEGATIVE); NITRITE,URINE NEGATIVE (NEGATIVE); PROTEIN,URINE NEGATIVE (NEGATIVE)
[2019-05-02 21:00] LABS: BACTERIA,URINE NEGATIVE /HPF; RBC,URINE 0-2 /HPF; WBC,URINE 0-2 /HPF
[2019-05-02 21:01] LABS: YEAST,URINE MODERATE /HPF
--- NOTE | 2019-05-02 21:08 | NUR ---
ASSUMED CARE OF THIS PATIENT AT THIS TIME. INTRODUCED SELF TO PATIENT AND SPOUSE WHO IS AT BEDSIDE. RESTING QUIETLY IN ROOM WITH CALL LIGHT IN REACH, ADDITIONAL NEEDS DENIED AT THIS TIME. WILL CONTINUE TO MONITOR.
[2019-05-02] MEDS: MAGNESIUM 1 GM/100 ML IVPB 100 ML IV SCH ×2 (21:25→22:24)
--- NOTE | 2019-05-02 21:53 | Diagnostic Imaging Report ---
EXAMINATION: Chest radiograph, portable AP view. DATE: 05/02/2019 9:21 PM hours. INDICATION: 73-year-old male, cough and weakness. Wheezing. COMPARISON: March 21, 2019. FINDINGS: Stable overall appearance of the cardiomediastinal silhouette. There are aortic calcifications. There is no identified pneumothorax. There is nonspecific left basilar airspace consolidation. There are interstitial opacities bilaterally. The humeral heads are superiorly subluxed bilaterally. IMPRESSION: 1. Nonspecific left basilar airspace consolidation which may relate to atelectasis, infiltrate, and/or a small effusion. 2. Bilateral interstitial opacities most likely relating to pulmonary interstitial edema. Atypical infection is the primary differential diagnostic consideration. Dictated by: Dictated on workstation # [id number]
[2019-05-02] MEDS ORDERED: BUDE10.2 IH ×2 (22:03)
[2019-05-02] MEDS ORDERED: ALPR2TAB PO ×2 (22:03)
[2019-05-02] MEDS ORDERED: SERT50TA9 PO ×2 (22:03)
[2019-05-02] MEDS ORDERED: SERT100T8 PO ×2 (22:03)
--- NOTE | 2019-05-02 23:40 | NUR ---
ZAFAR ULRICH admitted to room 418-1, with an admitting diagnosis of Pneumonia, COPD exacerbation, Generalized Weakness, Hypoxia, and Hypomagnesemia, on 05/02/19 from ED via hospital bed, accompanied by staff and .ZAFAR ULRICH and introduced to surroundings, call light, bed controls, phone, TV, temperature control, lights, meal times, smoking policy, visitor policy, side rail policy, bathrooms and showers. Patient Rights given to patient in the handbook. ZAFAR ULRICH and verbalizes understanding that [facility] is not responsible for the loss or damage to any personal effects or valuables that are kept in the patients posession during their hospitalization.
[2019-05-02] MEDS ORDERED: ACETAMINOPHEN 500 MG TAB (TYLENOL) PO PRN (23:45)
[2019-05-02 23:49] VITALS: BP 118/62
[2019-05-03] MEDS: 1/2 NS IV SOLUTION 1,000 ML IV SCH ×2 (00:44→20:40)
[2019-05-03] MEDS ORDERED: RT-ALBUTEROL/IPRATROPIUM 3 ML (DUONEB) VIAL INH PRN (00:45)
[2019-05-03] MEDS: methylPREDNISolone 125 MG (Solu-MEDROL) VIAL IV SCH ×3 (00:56→11:14)
[2019-05-03] MEDS: AZITHROMYCIN 500 MG/NS 250 ML IVPB IV SCH ×4 (01:40→23:24)
--- NOTE | 2019-05-03 01:45 | NUR ---
Unable to start 1st dose of Gentamicin, not enough medication available as per [facility]. Called [facility] and notified her of issue. Asked [facility] to retime the medication in AM once pharmacy is available so they can mix it.
[2019-05-03] MEDS: RT-ALBUTEROL/IPRATROPIUM 3 ML (DUONEB) VIAL INH SCH ×6 (02:00→22:41)
[2019-05-03 04:00] VITALS: BP 112/71
[2019-05-03 05:31] LABS: BASOPHILS % (AUTO) 0 % (0-10); EOSINOPHILS % (AUTO) 0 % (0-10); HEMATOCRIT 28 % (40-54); LYMPHOCYTES # (AUTO) 0.4 X 10^3 (1.0-4.0); LYMPHOCYTES % (AUTO) 12 % (12-44); MEAN CORPUSCULAR HEMOGLOBIN 32 PG (25-34); MEAN CORPUSCULAR HGB CONC 32 G/DL (32-36); MEAN CORPUSCULAR VOLUME 99 FL (80-99); MEAN PLATELET VOLUME 9.8 FL (7.4-10.4); MONOCYTES % (AUTO) 1 % (0-12); NEUTROPHILS # (AUTO) 2.8 X 10^3 (1.8-7.8); NEUTROPHILS % (AUTO) 87 % (42-75); PLATELET COUNT 252 10^3/uL (130-400); RED CELL DISTRIBUTION WIDTH 14.8 % (10.0-14.5); WHITE BLOOD COUNT 3.2 10^3/uL (4.3-11.0)
[2019-05-03 05:50] LABS: ALBUMIN 3.3 GM/DL (3.2-4.5); BILIRUBIN,TOTAL 0.2 MG/DL (0.1-1.0); CALCIUM 8.9 MG/DL (8.5-10.1); CREATININE SERUM 1.58 MG/DL (0.60-1.30); MAGNESIUM 2.4 MG/DL (1.6-2.4); POTASSIUM 4.8 MMOL/L (3.6-5.0); TOTAL PROTEIN 6.5 GM/DL (6.4-8.2)
[2019-05-03] MEDS ORDERED: GENTAMICIN IV SCH (07:45)
[2019-05-03] MEDS ORDERED: NS IV SCH (07:45)
[2019-05-03 08:00] VITALS: BP 128/60
[2019-05-03] MEDS: NICOTINE 21 MG (NICODERM) PATCH TD SCH (08:02)
[2019-05-03] MEDS ORDERED: GENTAMICIN 100 MG/NS 100 ML IVPB IV ONE ×2 (09:00)
[2019-05-03 12:00] VITALS: BP 123/60
--- NOTE | 2019-05-03 13:08 | History & Physical-Hospitalist ---
History of Present Illness HPI/Chief Complaint Chief complaint: Confusion with weakness History of present illness: This is a 73-year-old white male with very complex medical problems who is a patient of Dr. Demond Cormier and Dr. garcia at [facility] general surgery who presents to the ER with generalized weakness with pneumonia and confusion. His niece is at the bedside who helps fill in the details that he is unaware of. Apparently in January Dr. Emery diagnosed him with a rectal mass and was sent to a rectal specialist who performed an ileostomy but apparently 10 days after surgery he came to the ER with confusion and sepsis was sent back to [place] and somehow suffered a stroke per the niece report. He was sent to [facility] in [place] and was just discharged this past week after he was doing very well and ambulating around. He got home and apparently he was not eating or drinking well and became confused. Currently patient is improved with IV fluids but significant weakness remains and he may very well be an inpatient rehab candidate. I did restart all of his home medication of which he was most concerned about the hydrocodone. His ileostomy is functioning well. At this current time his confusion has improved. Source: patient, family, old records Exam Limitations: no limitations Date Seen 05/03/19 Time Seen by a Provider: 12:00 Attending Physician Sofía Hoffmann DO PCP Demond Cormier DO Referring Physician Date of Admission May 02, 2019 at 22:15 Home Medications & Allergies Home Medications Reviewed patient Home Medication Reconciliation performed by pharmacy medication reconciliations pulmonology technician and/or nursing. Patients Allergies have been reviewed. Allergies Allergies Coded Allergies No Known Drug Allergies (Unverified08/19/11) Past Ueeziqy-Xulqea-Utvrsj Hx Past Med/Social Hx: Reviewed Nursing Past Med/Soc Hx, Reviewed and Corrections made Patient Social History Marrital Status: Employed/Student: retired Alcohol Use: Past History (30 PACK OR MORE A DAY OF BEER) Recreational Drug Use: No Smoking Status: Current Everyday Smoker (2 ppd) Type Used: Cigarettes 2nd Hand Smoke Exposure: Yes Recent Foreign Travel: No Contact w/other who traveled: No Recent Hopitalizations: Yes Recent Infectious Disease Expo: No Immunizations Up To Date Pediatric: Yes Date of Pneumonia Vaccine: Apr 06, 2018 Date of Influenza Vaccine: Mar 20, 2019 Seasonal Allergies Seasonal Allergies: No Past Medical History Surgeries: Abdominal, Bowel Surgery, Eye Surgery, Neurological Respiratory: COPD, Pneumonia night time hypoxia Currently Using CPAP: No Cardiac: Deep Vein Thrombosis, High Cholesterol, Hypertension Neurological: Dementia, Stroke, TIA Reproductive: No Genitourinary: Renal Failure Gastrointestinal: Gastroesophageal Reflux, Diverticulosis, Chronic Diarrhea Musculoskeletal: Arthritis, Chronic Back Pain Endocrine: Hypothyroidsim HEENT: Cataract Cancer: Skin, Colon Did You Recieve Any Treatments: Yes What Type of Treatment Did You: Surgical Intervention Psychosocial: Anxiety, Bipolar, Personality Disorder, Depression History of Blood Disorders: No Family History TREATED FOR REY MOUNTAIN SPOTTED FEVER 02/2019 Review of Systems Constitutional: see HPI, dizziness, malaise, weakness EENTM: no symptoms reported Respiratory: dyspnea on exertion Cardiovascular: no symptoms reported Gastrointestinal: loss of appetite, nausea Genitourinary: no symptoms reported Musculoskeletal: no symptoms reported Skin: no symptoms reported Psychiatric/Neurological: No Symptoms Reported All Other Systems Reviewed Negative Unless Noted: Yes Physical Exam Physical Exam Vital Signs Vital Signs - First Documented 05/02/19 19:54 Temp 37.4 Pulse 98 Resp 18 B/P (MAP) 124/60 (81) Pulse Ox 94 O2 Delivery Room Air O2 Flow Rate 3.00 FiO2 92 Capillary Refill : Less Than 3 Seconds Height, Weight, BMI Height: 6'0.00" Weight: 185lbs. 0.0oz. 83.231598ms; 27.29 BMI Method:Stated General Appearance: No Apparent Distress, WD/WN, Chronically ill Eyes: Right Eye Normal Inspection, Right Eye PERRL HEENT: PERRL/EOMI, Normal ENT Inspection, Pharynx Normal, Moist Mucous Membranes Neck: Full Range of Motion, Normal Inspection, Non Tender Respiratory: Chest Non Tender, No Accessory Muscle Use, No Respiratory Distress, Crackles, Decreased Breath Sounds Cardiovascular: Regular Rate, Rhythm, No Edema, No Gallop, No JVD, No Murmur, Normal Peripheral Pulses Gastrointestinal: Normal Bowel Sounds, No Organomegaly, No Pulsatile Mass, Non Tender, Soft, Other (iliostomy ) Back: Normal Inspection, No CVA Tenderness, No Vertebral Tenderness Extremity: Normal Capillary Refill, Normal Inspection, Normal Range of Motion, Non Tender, No Calf Tenderness, No Pedal Edema Neurologic/Psychiatric: Alert, Oriented x3, No Motor/Sensory Deficits, Normal Mood/Affect, morning caregiver II-XII Norm as Tested, Disoriented (subtle) Skin: Normal Color, Warm/Dry Lymphatic: No Adenopathy Results Results/Procedures Labs Laboratory Tests 05/02/19 19:59 05/03/19 04:58 Patient resulted labs reviewed. Assessment/Plan Admission Diagnosis Assessment: Pneumonia Severe weakness [facility] COPD Smoker Neutropenia Ileostomy Rectal cancer 01/2019 Plan: Abx longterm acquired IVF gently Home meds PT/OT IRF? Admission Status: Inpatient Order (span 2 midnights) Reason for Inpatient Admission: Pnemonia with rectal cancer patient failed at home for less than 1 week Diagnosis/Problems Diagnosis/Problems (1) Pneumonia Status: Acute (2) COPD exacerbation Status: Acute (3) Hypoxia Status: Acute (4) Generalized weakness Status: Acute (5) Mood disorder Status: Acute (6) Hypertension Status: Acute (7) RAY (acute kidney injury) Status: Acute (8) Altered mental status Status: Acute Clinical Quality Measures DVT/VTE Risk/Contraindication: Risk Factor Score Per Nursin RFS Level Per Nursing on Admit: 4+=Very High SOFÍA HOFFMANN DO May 03, 2019 13:08 POS
[2019-05-03] MEDS ORDERED: PATIENT MAY USE OWN MEDS, ALL MC SCH (13:15)
[2019-05-03] MEDS: SINEMET 25/100 (CARBIDOPA/LEVODOPA) TAB PO SCH ×3 (13:26→20:43)
[2019-05-03] MEDS: ENOXAPARIN 40 MG/0.4 ML (LOVENOX) SYR SC SCH (14:36)
[2019-05-03] MEDS ORDERED: GENTAMICIN LEVEL XX NR (15:00)
[2019-05-03] MEDS: HYDROcodone/APAP 10 MG/325 MG (LORTAB) TAB PO PRN (15:37)
[2019-05-03 16:10] VITALS: BP 140/62
--- NOTE | 2019-05-03 16:30 | NUR ---
Notified Dr. Hough with critical gentamicin trough. Orders to have pharmacy adjust dose. Spoke with Tiffanie in pharmacy, will hold gentamicin today and pharmacy with adjust dose for 05/04.
[2019-05-03 20:04] VITALS: BP 119/57
[2019-05-03] MEDS: LEVETIRACETAM 750 MG PO SCH (20:41)
[2019-05-03] MEDS: CEFEPIME 2,000 MG/SWFI 20 ML IV PUSH IV SCH ×2 (20:41)
[2019-05-03] MEDS: SERTRALINE 100 MG (ZOLOFT) TAB PO SCH (20:43)
[2019-05-03] MEDS: GEMFIBROZIL 600 MG (LOPID) TAB PO SCH (20:43)
[2019-05-03] MEDS: SERTRALINE 50 MG (ZOLOFT) TABLET PO SCH (20:43)
[2019-05-03] MEDS: risperiDONE 0.25 MG (RisperDAL) TAB PO SCH (20:43)
[2019-05-03] MEDS: DIVALPROEX EXT RELEASE 250 MG (DEPAKOTE ER) TAB PO SCH (20:44)
[2019-05-04] VITALS (7 sets, daily range): BP systolic 102–138; BP diastolic 51–71
[2019-05-04] MEDS: RT-ALBUTEROL/IPRATROPIUM 3 ML (DUONEB) VIAL INH SCH ×6 (02:50→21:37)
[2019-05-04 05:19] LABS: BASOPHILS % (AUTO) 0 % (0-10); EOSINOPHILS % (AUTO) 0 % (0-10); HEMATOCRIT 26 % (40-54); HEMOGLOBIN 8.2 G/DL (13.3-17.7); LYMPHOCYTES % (AUTO) 16 % (12-44); MEAN CORPUSCULAR HEMOGLOBIN 32 PG (25-34); MEAN CORPUSCULAR HGB CONC 32 G/DL (32-36); MEAN CORPUSCULAR VOLUME 99 FL (80-99); MEAN PLATELET VOLUME 9.4 FL (7.4-10.4); MONOCYTES # (AUTO) 0.4 X 10^3 (0.0-1.0); MONOCYTES % (AUTO) 7 % (0-12); NEUTROPHILS # (AUTO) 4.8 X 10^3 (1.8-7.8); NEUTROPHILS % (AUTO) 78 % (42-75); PLATELET COUNT 252 10^3/uL (130-400); RED CELL DISTRIBUTION WIDTH 14.6 % (10.0-14.5); WHITE BLOOD COUNT 6.2 10^3/uL (4.3-11.0)
[2019-05-04] MEDS: LEVOTHYROXINE 112 MCG (LEVOTHROID) TAB PO SCH (05:42)
[2019-05-04 05:50] LABS: BILIRUBIN,TOTAL 0.1 MG/DL (0.1-1.0); CALCIUM 8.3 MG/DL (8.5-10.1); CREATININE SERUM 1.69 MG/DL (0.60-1.30); POTASSIUM 4.6 MMOL/L (3.6-5.0); TOTAL PROTEIN 5.9 GM/DL (6.4-8.2)
[2019-05-04] MEDS: LEVETIRACETAM 750 MG PO SCH ×2 (08:20→21:08)
[2019-05-04] MEDS: ALPRAZOLAM 2 MG PO SCH (08:20)
[2019-05-04] MEDS: SERTRALINE 100 MG (ZOLOFT) TAB PO SCH ×2 (08:21→21:07)
[2019-05-04] MEDS: SERTRALINE 50 MG (ZOLOFT) TABLET PO SCH ×2 (08:21→21:07)
[2019-05-04] MEDS: amLODIPine 10 MG (NORVASC) TAB PO SCH (08:21)
[2019-05-04] MEDS: SINEMET 25/100 (CARBIDOPA/LEVODOPA) TAB PO SCH ×4 (08:21→21:07)
[2019-05-04] MEDS: GEMFIBROZIL 600 MG (LOPID) TAB PO SCH ×2 (08:21→21:07)
[2019-05-04] MEDS: lisINopril 10 MG (PRINIVIL) TABLET PO SCH (08:21)
[2019-05-04] MEDS: DIVALPROEX EXT RELEASE 250 MG (DEPAKOTE ER) TAB PO SCH ×2 (08:21→21:11)
--- NOTE | 2019-05-04 08:22 | Pulmonary Consultation ---
History of Present Illness History of Present Illness Date of Admission Allergies and Home Medications Allergies Coded Allergies: No Known Drug Allergies (Unverified , 08/19/11) Home Medications Alprazolam 2 Mg Tab.er.24h, 2 MG PO DAILY, (Reported) Budesonide/Formoterol Fumarate 10.2 Gm Hfa.aer.ad, 2 PUFF IH BID, (Reported) Carbidopa/Levodopa 1 Each Tablet, 1 EACH PO QID, (Reported) Divalproex Sodium 250 Mg Tab.er.24h, 250 MG PO BID, (Reported) Felodipine 10 Mg Tab.er.24h, 10 MG PO DAILY, (Reported) Gemfibrozil 600 Mg Tablet, 600 MG PO BID, (Reported) Hydrocodone/Acetaminophen 1 Each Tablet, 1 TAB PO Q4H PRN for PAIN-MODERATE, (Reported) Levetiracetam 750 Mg Tablet, 750 MG PO BID, (Reported) Levothyroxine Sodium 112 Mcg Tablet, 112 MCG PO DAILY, (Reported) Lisinopril 10 Mg Tablet, 10 MG PO DAILY, (Reported) Lovastatin 10 Mg Tablet, 5 MG PO HS, (Reported) take 1/2 of 10mg tab Risperidone 0.5 Mg Tablet, 0.75 MG PO HS, (Reported) take 1 1/2 of .5mg tab Sertraline HCl 100 Mg Tablet, 100 MG PO BID, (Reported) Sertraline HCl 50 Mg Tablet, 50 MG PO BID, (Reported) Past Ckrbine-Guzbnj-Dzlhdr Hx Past Med/Social Hx: Reviewed Nursing Past Med/Soc Hx, Reviewed and Corrections made Patient Social History Alcohol Use: Past History (30 PACK OR MORE A DAY OF BEER) Recreational Drug Use: No Smoking Status: Current Everyday Smoker (2 ppd) Type Used: Cigarettes 2nd Hand Smoke Exposure: Yes Recent Foreign Travel: No Contact w/Someone Who Travel: No Recent Infectious Disease Expo: No Recent Hopitalizations: Yes Physical Abuse: No Sexual Abuse: No Mistreated: No Fear: No Immunizations Up To Date PED Vaccines UTD: Yes Date of Pneumonia Vaccine: Apr 06, 2018 Date of Influenza Vaccine: Mar 20, 2019 Seasonal Allergies Seasonal Allergies: No Past Medical History Surgeries: Yes (BRAIN ANEURYSM AND HEMORRHAGE X 2 REQUIRING CRAINIOTOMY; EGD/COLONOSCOPIES WITH PREVIOUS POLYPECTOMIES--COLON/RECTAL RESECTION WITH COLOSTOMY 03/11/19 AT [facility]/DR. DUPREE; REMOVAL OF SKIN CANCER ON CHEST; BILATERAL CATARACT SURGERY) Abdominal, Bowel Surgery, Eye Surgery, Neurological Respiratory: Yes (STARTED ON HOME O2 AT 2L/NC 03/2019) COPD, Emphysema Currently Using CPAP: No Cardiac: Yes (DVT'S BY HISTORY) Deep Vein Thrombosis, High Cholesterol, Hypertension Neurological: Yes (CEREBRAL ANEURYSM /INTRACRANIAL BLEED X 2--S/P CRANIOTOMY--LAST INTRACRANIAL BLEED 03/10/2018--TRANSFERRED TO [facility]; SUSPECTED DEMENTIA WITH MEMORY IMPAIRMENT AND SYMPTOMS OF "SUNDOWNER'S" PER W RAUDEL; PARKINSON'S; CEREBELLAR ATAXIA; CVA'S/TIA'S --MULTIPLE ) Dementia, Stroke, TIA Reproductive Disorders: No Genitourinary: Yes (CHRONIC RENAL FAILURE/INSUFFICIENCY--NO DIALYSIS) Renal Failure Gastrointestinal: Yes (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 DUPREE; PRIOR COLONOSCOPY WITH POLYPECTOMIES; EGD'S; DIVERTICULOSIS NOTED ON COLONOSCOPIES) Gastroesophageal Reflux, Diverticulosis, Chronic Diarrhea Musculoskeletal: Yes (CHRONIC GENERALIZED PAIN COMPLAINTS--NARCOTIC DEPENDENCY) Arthritis, Chronic Back Pain Endocrine: Yes (B 12 DEFICIENCY) Hypothyroidsim HEENT: Yes (BILATERAL CATARACT SURGERY) Cataract Cancer: Yes (SQUAMOUS CELL CANCER OF CHEST REMOVED; COLON/RECTAL RESECTION AND COLOSTOMY 03/11/19 AT [facility]/DR. DUPREE) Skin, Colon Did You Recieve Any Treatments: Yes What Type of Treatment Did You: Surgical Intervention Psychosocial: Yes (HX OF ALCOHOLISM; EXPLOSIVE BEHAVIOR AT TIMES. "SUNDOWNER'S" SYMPTOMS PER --"PERSONALITY CHANGE" ) Anxiety, Bipolar, Personality Disorder, Depression Integumentary: Yes (HX OF CELLULITIS; SKIN CANCER REMOVED FROM CHEST) Blood Disorders: No Family Medical History TREATED FOR REY [place] SPOTTED FEVER 02/2019 Sepsis Event Evaluation Height, Weight, BMI Height: 6'0.00" Weight: 185lbs. 0.0oz. 83.280529mj; 27.29 BMI Method:Stated Exam Exam Vital Signs Date Time Temp Pulse Resp B/P (MAP) Pulse Ox O2 Delivery O2 Flow Rate FiO2 05/04/19 07:00 74 05/04/19 04:02 36.4 80 18 115/60 (78) 96 Nasal Cannula 3.00 05/04/19 02:50 96 Nasal Cannula 3.00 05/04/19 01:00 82 05/04/19 00:30 36.5 99 19 112/71 (85) 97 Nasal Cannula 3.00 05/03/19 22:41 94 Nasal Cannula 3.00 05/03/19 20:25 Room Air 2.00 05/03/19 20:04 36.8 98 20 119/57 (77) 91 Nasal Cannula 3.00 05/03/19 19:00 92 05/03/19 18:53 97 Nasal Cannula 3.00 05/03/19 16:10 37.0 87 20 140/62 (88) 98 Nasal Cannula 3.00 05/03/19 13:00 89 05/03/19 12:00 36.8 84 18 123/60 (81) 94 Room Air 05/03/19 10:21 93 Nasal Cannula 3.00 I & O 05/04/19 07:00 Intake Total 4900 ml Output Total 2350 ml Balance 2550 ml Height & Weight Height: 6'0.00" Weight: 185lbs. 0.0oz. 83.210377op; 27.29 BMI Method:Stated General Appearance: No Apparent Distress, WD/WN, Chronically ill HEENT: PERRL/EOMI, Normal ENT Inspection, Pharynx Normal, Moist Mucous Membranes Neck: Full Range of Motion, Normal Inspection, Non Tender Respiratory: Chest Non Tender, No Accessory Muscle Use, No Respiratory Distress, Crackles, Decreased Breath Sounds Cardiovascular: Regular Rate, Rhythm, No Edema, No Gallop, No JVD, No Murmur, Normal Peripheral Pulses Capillary Refill: Less Than 3 Seconds Extremity: Normal Capillary Refill, Normal Inspection, Normal Range of Motion, Non Tender, No Calf Tenderness, No Pedal Edema Neurologic/Psychiatric: Alert, Oriented x3, No Motor/Sensory Deficits, Normal Mood/Affect, skin lifter bacon II-XII Norm as Tested, Disoriented (subtle) Skin: Normal Color, Warm/Dry Lymphatic: No Adenopathy Results Lab Laboratory Tests 05/02/19 19:59 05/03/19 04:58 05/04/19 05:00 Assessment/Plan Assessment/Plan PNeumonia -Continue COPDAE -SVNS Severe weakness/debility -PT/OT possible IRF Tobacco use Rectal cancer 01/26 LEELA WONG DO May 04, 2019 08:22 POS
[2019-05-04] MEDS: NICOTINE 21 MG (NICODERM) PATCH TD SCH (08:23)
--- NOTE | 2019-05-04 09:30 | Progress Note - Hospitalist ---
Subjective HPI/CC On Admission Date Seen by Provider: May 04, 2019 Time Seen by Provider: 09:15 Chief complaint: Confusion with weakness History of present illness: This is a 73-year-old white male with very complex medical problems who is a patient of Dr. Demond Cormier and Dr. garcia at [facility] general surgery who presents to the ER with generalized weakness with pneumonia and confusion. His niece is at the bedside who helps fill in the details that he is unaware of. Apparently in January Dr. Emery diagnosed him with a rectal mass and was sent to a rectal specialist who performed an ileostomy but apparently 10 days after surgery he came to the ER with confusion and sepsis was sent back to [place] and somehow suffered a stroke per the niece report. He was sent to [facility] in [place] and was just discharged this past week after he was doing very well and ambulating around. He got home and apparently he was not eating or drinking well and became confused. Currently patient is improved with IV fluids but significant weakness remains and he may very well be an inpatient rehab candidate. I did restart all of his home medication of which he was most concerned about the hydrocodone. His ileostomy is functioning well. At this current time his confusion has improved. Subjective/Events-last exam Pt doing much better Clearly thinking today at bedside Will DC baldwin catheter Will DC telemetry Will initiate PT and OT Pt very well may be an inpatient rehab candidate Review of Systems General: Fatigue Pulmonary: Cough Focused Exam Lactate Level 05/02/19 20:15: Lactic Acid Level 1.04 Objective Exam Vital Signs Vital Signs Date Time Temp Pulse Resp B/P (MAP) Pulse Ox O2 Delivery O2 Flow Rate FiO2 05/04/19 19:36 36.5 91 20 111/51 (71) 94 Room Air 05/04/19 18:54 3.00 05/03/19 08:00 92 Capillary Refill : Less Than 3 Seconds General Appearance: No Apparent Distress, WD/WN, Chronically ill Respiratory: Chest Non Tender, Lungs Clear, Normal Breath Sounds, No Accessory Muscle Use, No Respiratory Distress Cardiovascular: Regular Rate, Rhythm, No Edema, No Gallop, No JVD, No Murmur, Normal Peripheral Pulses Neurologic/Psychiatric: Alert, Oriented x3, No Motor/Sensory Deficits, Normal Mood/Affect Skin: Normal Color, Warm/Dry Results/Procedures Lab Laboratory Tests 05/04/19 05:00 Patient resulted labs reviewed. Assessment/Plan Assessment and Plan Assess & Plan/Chief Complaint Assessment: Pneumonia Severe weakness failed DC home from [place] COPD Smoker Neutropenia Ileostomy Rectal cancer 01/2019 Delirium Plan: [facility]x [facility] IVF gently Home meds PT/OT IRF? DC Gent Diagnosis/Problems Diagnosis/Problems (1) Pneumonia Status: Acute (2) COPD exacerbation Status: Acute (3) Hypoxia Status: Acute (4) Generalized weakness Status: Acute (5) Mood disorder Status: Acute (6) Hypertension Status: Acute (7) RAY (acute kidney injury) Status: Acute (8) Altered mental status Status: Acute Clinical Quality Measures DVT/VTE Risk/Contraindication: Risk Factor Score Per Nursin RFS Level Per Nursing on Admit: 4+=Very High RANDI HOFFMANN DO May 04, 2019 09:30 POS
--- NOTE | 2019-05-04 10:40 | Occupational Therapy Eval ---
OT Evaluation-General/PLF Medical Diagnosis Admission Date May 03, 2019 at 15:25 Medical Diagnosis: Pneumonia, COPD exacerbation Onset Date: May 02, 2019 Therapy Diagnosis Therapy Diagnosis: impaired ADLs and functional mobility Height/Weight Height (Feet): 6 Height (Inches): 0.00 Weight (Pounds): 185 Weight (Ounces): 0.0 Precautions Precautions/Isolations: Standard Precautions Safety Interventions: None Referral Physician: Gianluca Referral Reason: Activity Tolerance, Self Care, Evaluation/Treatment, Strengthening/ROM Medical History Pertinent Medical History: COPD, HTN Additional Medical History colon cancer (surgery 03/11/19), skin cancer, brain aneurysm and hemorrhage Current History Per H&P: "This is a 73-year-old white male with very complex medical problems who is a patient of Dr. Demond Cormier and Dr. garcia at [facility] general surgery who presents to the ER with generalized weakness with pneumonia and confusion. His niece is at the bedside who helps fill in the details that he is unaware of. Apparently in January Dr. Emery diagnosed him with a rectal mass and was sent to a rectal specialist who performed an ileostomy but apparently 10 days after surgery he came to the ER with confusion and sepsis was sent back to [place] and somehow suffered a stroke per the niece report. He was sent to [facility] long term in [place] and was just discharged this past week after he was doing very well and ambulating around. He got home and apparently he was not eating or drinking well and became confused. Currently patient is improved with IV fluids but significant weakness remains and he may very well be an inpatient rehab candidate. I did restart all of his home medication of which he was most concerned about the hydrocodone. His ileostomy is functioning well. At this current time his confusion has improved." Reviewed History: Yes Social History Home: Single Level Current Living Status: Spouse Entry Into Home: Ramp ADL-Prior Level of Function SCALE: Activities may be completed with or without assistive devices. 8-Macxecwqyz-jahqihx completes the activity by him/herself with no assistance from a helper. 5-Set-up or Clean-up Assistance-helper sets up or cleans up; patient completes activity. [place] assists only prior to or following the activity. 4-Supervision or Touching Assistance-helper provides verbal cues and/or touching/steadying and/or contact guard assistance as patient completes activity. Assistance may be provided throughout the activity or intermittently. 3-Partial/Moderate Assistance-helper does LESS THAN HALF the effort. [place] lifts, holds or supports trunk or limbs, but provides less than half the effort. 2-Substantial/Maximal Assistance-helper does MORE THAN HALF the effort. [place] lifts or holds trunk or limbs and provides more than half the effort. 4-Lokbsinxv-sdnons does ALL the effort. Patient does none of the effort to complete the activity. Or, the assistance of 2 or more helpers is required for the patient to complete the activity. If activity was not attempted, code reason: 7-Patient Refused. 9-Not Applicable-not attempted and the patient did not perform the activity before the current illness, exacerbation or injury. 10-Not Attempted due to Environmental Limitations-(lack of equipment, weather restraints, etc.). 88-Not Attempted due to Medical Conditions or Safety Concerns. ADL PLOF Comments Per pt and report: prior to hospitalization, pt was receiving therapy services at home, he required assistance from with with dressing, but he reports independence with bathing. Pt states he fatigues easily with tasks. Self Care: Needed Some Help Functional Cognition: Independent DME/Equipment: Bath Chair, Shower (walk in), Tub/Shower (walk in bath tub) DME/Equipment Comments pt uses a walker partner management consultant, a cane other times, and states he sometimes does not use any AD. Pt has home O2, reports he uses 2.5L while at home, he uses it at night and during the day as needed. OT Current Status Subjective Pt laying in bed at start of session, present. Pt did not report any pain during session, agreeable to OT evaluation. Pt reported he would like to go home today. Mental Status/Objective Patient Orientation: Person, Place, Time, Situation Attachments: Irvin Catheter, Telemetry Current Glasses/Contacts: Yes Hearing Aids: No Dentures/Partials: No Hand Dominance: Right Upper Extremity ROM pt able to flex BUE shoulders to approximately 150 degrees. He states he had a torn rotator cuff that he did not have surgery on. Upper Extremity Coordination no deficits noted during session Upper Extremity Sensation pt denied tingling/numbness Upper Extremity Strength BUE grossly 4/5 ADL-Treatment Eating (QC): 6 (pt reported he has no difficulty eating) Oral Hygiene (QC): 7 Shower/Bathe Self (QC): 7 Upper Body Dressing (QC): 7 Lower Body Dressing (QC): 7 On/Off Footwear (QC): 3 (Pt able to doff BLE, and don RLE. He required assist with left sock due to the sock catching on his toenails. duing donning left sock, pt lost his balance, leaning to his left side. Min verbal cues to not hold his breath during task.) Toileting Hygiene (QC): 7 Toilet Transfer (QC): 7 Other Treatments Pt and his provided information on PLOF and home set up for OT evaluation. Pt transferred to EOB with SBA where he then doffed/donned socks. No LOB noted during static sitting EOB, slight balance loss noted with putting on socks (see note above). OT educated pt on safety and energy conservation with using a shower chair during bathing. Post OT session, pt seated EOB, call light in reach and all needs met. Nurse present stating he was going to remove the catheter and telemetry. Education OT Patient Education: Correct positioning, Energy conservation, Modified ADL techniques, Progress toward Goal/Update tx plan, Purpose of tx/functional activ ities Teaching Recipient: Patient, Family Teaching Methods: Discussion Response to Teaching: Verbalize Understanding OT Usp Goals Product Marketer Goals Time Frame: May 15, 2019 Eating (QC): 6 Oral Hygiene (QC): 6 Toileting Hygiene (QC): 6 Shower/Bathe Self (QC): 6 Upper Body Dressing (QC): 6 Lower Body Dressing (QC): 3 On/Off Footwear (QC): 3 1=Demonstrate adherence to instructed precautions during ADL tasks. 2=Patient will verbalize/demonstrate understanding of assistive devices/modifications for ADL. 3=Patient will improve strength/tolerance for activity to enable patient to perform ADL's. OT Education/Plan Problem List/Assessment Assessment: Decreased Activ Tolerance, Decreased UE Strength, Impaired I ADL's, Impaired Self-Care Skills Discharge Recommendations Plan/Recommendations: Continue POC Treatment Plan/Plan of Care Treatment,Training & Education: Yes Patient would benefit from OT for education, treatment and training to promote independence in ADL's, mobility, safety and/or upper extremity function for AD L's. Plan of Care: ADL Retraining, Caregiver Training, Functional Mobility, UE Funct Exercise/Act Treatment Duration: May 15, 2019 Frequency: 5 times per week Estimated Hrs Per Day: .25 hour per day Agreement: Yes Rehab Potential: Good Time/GCodes Start Time: 10:08 Stop Time: 10:25 Total Time Billed (hr/min): 17 Billed Treatment Time 1, ANUP TREVIZO OT May 04, 2019 10:40 POS
--- NOTE | 2019-05-04 11:18 | NUR ---
Pt is Cong[employer]. Voip Engineer provided prayer and Communion.
--- NOTE | 2019-05-04 11:23 | NUR ---
Baldwin and tele c'd per order. Pt tolerated well, 275mL urine emptied from baldwin.
[2019-05-04] MEDS: RT-ADVAIR HFA 115/21 MCG PER PUFF IH SCH ×2 (11:43→18:49)
[2019-05-04] MEDS ORDERED: TAMS0.4C98 PO ×2 (11:44)
[2019-05-04] MEDS: Lovastatin 10 MG TABLET PO SCH ×2 (12:29→21:09)
[2019-05-04] MEDS ORDERED: ALPR0.5T PO ×2 (12:31)
[2019-05-04] MEDS ORDERED: ALPR0.5T7 PO ×2 (12:31)
[2019-05-04] MEDS ORDERED: RISP0.5T3 PO ×2 (12:33)
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
[2019-05-04] MEDS: ENOXAPARIN 40 MG/0.4 ML (LOVENOX) SYR SC SCH (13:25)
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
[2019-05-04] MEDS ORDERED: CNC1KV IM ×2 (14:03)
--- NOTE | 2019-05-04 14:45 | Physical Therapy Evaluation ---
PT Evaluation-General Medical Diagnosis Admission Date May 03, 2019 at 15:25 Medical Diagnosis: Pneumonia, COPD exacerbation Onset Date: May 02, 2019 Therapy Diagnosis Therapy Diagnosis: weakness Height/Weight Height (Feet): 6 Height (Inches): 0.00 Weight (Pounds): 185 Weight (Ounces): 0.0 Precautions Precautions/Isolations: Standard Precautions Referral Physician: Gianluca Reason for Referral: Evaluation/Treatment Medical History Pertinent Medical History: COPD, HTN, Smoking Current History EMS secondary to generalized weakness Reviewed History: Yes Social History Home: Single Level Current Living Status: Spouse Entry Into Home: Ramp Prior Prior Level of Function SCALE: Activities may be completed with or without assistive devices. 3-Vxttiareom-zrertkd completes the activity by him/herself with no assistance from a helper. 5-Set-up or Clean-up Assistance-helper sets up or cleans up; patient completes activity. [place] assists only prior to or following the activity. 4-Supervision or Touching Assistance-helper provides verbal cues and/or touching/steadying and/or contact guard assistance as patient completes activity. Assistance may be provided throughout the activity or intermittently. 3-Partial/Moderate Assistance-helper does LESS THAN HALF the effort. [place] lifts, holds or supports trunk or limbs, but provides less than half the effort. 2-Substantial/Maximal Assistance-helper does MORE THAN HALF the effort. [place] lifts or holds trunk or limbs and provides more than half the effort. 8-Ctwqgatyi-mzsqzc does ALL the effort. Patient does none of the effort to complete the activity. Or, the assistance of 2 or more helpers is required for the patient to complete the activity. If activity was not attempted, code reason: 7-Patient Refused. 9-Not Applicable-not attempted and the patient did not perform the activity before the current illness, exacerbation or injury. 10-Not Attempted due to Environmental Limitations-(lack of equipment, weather restraints, etc.). 88-Not Attempted due to Medical Conditions or Safety Concerns. Bed Mobility: 6 Transfers (B,C,W/C): 6 Gait: 6 Indoor Mobility (Ambulation): Independent Prior Devices Use: Walker (has used walker or cane at times; no AD prior to weakness) PT Evaluation-Current Subjective Patient agrees to PT at this time. Reports no pain. States he is on 3L O2 at all times at home now but has no trouble with mobility. Pain Numeric Pain Scale: 0-No Pain Location: No Pain Reported Objective Patient Orientation: Normal For Age Attachments: Oxygen (3L), IV ROM/Strength ROM Lower Extremities WFL Strength Lower Extremities Grossly 4/5 Integumentary/Posture Integumentary See nursing notes Bowel Incontinence: No Bladder Incontinence: No Posture WFL Neuromuscular (Tone, Coordination, Reflexes) Grossly intact Sensory Vision: Functional Hearing: Functional Hand Dominance: Right Transfers Roll Left to Right (QC): 6 Sit to Lying (QC): 6 Lying to Sitting/Side of Bed(Q: 6 Sit to Stand (QC): 6 Chair/Hfp-cw-Uznrz Xfer(QC): 6 Car Transfer (QC): 10 Gait Does the Patient Walk?: Yes Mode of Locomotion: Walk Anticipated Mode of Locomotion: Walk Walk 10 feet (QC): 4 Walk 50 ft with 2 Turns(QC): 4 Walk 150 ft (QC): 4 Walking 10ft/uneven surface-QC: 88 Distance: 400' Gait Assistive Device: FWW Comments/Gait Description Normal pace and pattern with FWW; no difficulty ambulating; CGA Wheelchair Training Does the Pt Use a Wheelchair?: No Wheel 50 ft with 2 turns (QC): 9 Wheel 150 ft (QC): 9 Type of Wheelchair: Manual Stairs 1 Step (curb) (QC): 9 4 Steps (QC): 9 12 Steps (QC): 9 Balance Sitting Static: Normal Sitting Dynamic: Normal Standing Static: Normal Standing Dynamic: Normal Picking up an Object (QC): 88 Assessment/Needs Patient able to perform all bed mobility and transfers independently. Patient ambulated 400' with FWW without difficulty with normal pace and pattern. Patient reported some SOB upon return to room from ambulation but states it was normal. Patient seated in chair at conclusion of treatment with nursing present. PT to see x 2 sessions to ensure safe mobility with use of FWW in hallway independently or with nursing staff/family. Rehab Potential: Fair PT Supervisor [place] Goals Supervisor [place] Goals PT Supervisor [place] Goals Time Frame: May 05, 2019 Roll Left & Right (QC): 6 Sit to Lying (QC): 6 Lying-Sitting on Side/Bed(QC): 6 Sit to Stand (QC): 6 Chair/Nlk-hn-Eoijx Xfer(QC): 6 Toilet Transfer (QC): 6 Car Transfer (QC): 6 Does the Patient Walk: Yes Walk 10 feet (QC): 6 Walk 50ft with 2 Turns (QC): 6 Walk 150 ft (QC): 6 Walking 10ft on Uneven Surface: 6 1 Step (curb) (QC): 6 4 Steps (QC): 9 12 Steps (QC): 9 Picking up an Object (QC): 6 Does the Pt use WC or Scooter?: No Type: N/A Type: N/A PT Plan Problem List Problem List: Activity Tolerance, Functional Strength, Safety, Balance, Gait, Transfer, Bed Mobility Treatment/Plan Treatment Plan: Continue Plan of Care Treatment Plan: Bed Mobility, Education, Functional Activity [place], Functional Strength, Gait, Safety, Therapeutic Exercise, Transfers Treatment Duration: May 05, 2019 Frequency: 2 times per week Estimated Hrs Per Day: .25 hour per day Patient and/or Family Agrees t: Yes Time/GCodes Time In: 1325 Time Out: 1342 Total Billed Treatment Time: 17 Total Billed Treatment 1 visit EVLow 17min NATHANAEL TREVINO PT May 04, 2019 14:45 POS
--- NOTE | 2019-05-04 15:22 | NUR ---
IRF Evaluation Order received to evaluate patient for the ARU. Chart review complete and it appears patient is ambulating (400ft, FWW) with CGA, as well as independent with transfers; therefore, it has been determined the patient does not require intensive therapies, at this time. CM/SS notified. According to SW, patient is eager to dismiss from hospital. Thank you for this referral.
[2019-05-04] MEDS: HYDROcodone/APAP 10 MG/325 MG (LORTAB) TAB PO PRN ×2 (15:49→21:23)
[2019-05-04] MEDS: 1/2 NS IV SOLUTION 1,000 ML IV SCH (16:33)
[2019-05-04] MEDS: CEFEPIME 2,000 MG/SWFI 20 ML IV PUSH IV SCH ×2 (20:58)
[2019-05-04] MEDS: risperiDONE 0.25 MG (RisperDAL) TAB PO SCH (21:08)
[2019-05-04] MEDS: AZITHROMYCIN 500 MG/NS 250 ML IVPB IV SCH ×2 (23:28)
[2019-05-05] MEDS: RT-ALBUTEROL/IPRATROPIUM 3 ML (DUONEB) VIAL INH SCH ×6 (02:34→21:19)
[2019-05-05 04:00] VITALS: BP 116/58
[2019-05-05] MEDS: HYDROcodone/APAP 10 MG/325 MG (LORTAB) TAB PO PRN ×2 (04:15→09:50)
[2019-05-05] MEDS: LEVOTHYROXINE 112 MCG (LEVOTHROID) TAB PO SCH (05:33)
[2019-05-05 05:47] LABS: BASOPHILS % (AUTO) 1 % (0-10); EOSINOPHILS # (AUTO) 0.1 10^3/uL (0.0-0.3); EOSINOPHILS % (AUTO) 3 % (0-10); HEMATOCRIT 25 % (40-54); HEMOGLOBIN 7.9 G/DL (13.3-17.7); LYMPHOCYTES # (AUTO) 0.5 X 10^3 (1.0-4.0); LYMPHOCYTES % (AUTO) 13 % (12-44); MEAN CORPUSCULAR HEMOGLOBIN 31 PG (25-34); MEAN CORPUSCULAR HGB CONC 31 G/DL (32-36); MEAN CORPUSCULAR VOLUME 100 FL (80-99); MEAN PLATELET VOLUME 9.9 FL (7.4-10.4); MONOCYTES # (AUTO) 0.3 X 10^3 (0.0-1.0); MONOCYTES % (AUTO) 7 % (0-12); NEUTROPHILS # (AUTO) 3.2 X 10^3 (1.8-7.8); NEUTROPHILS % (AUTO) 77 % (42-75); PLATELET COUNT 279 10^3/uL (130-400); RED CELL DISTRIBUTION WIDTH 14.9 % (10.0-14.5); WHITE BLOOD COUNT 4.2 10^3/uL (4.3-11.0)
[2019-05-05 06:13] LABS: BILIRUBIN,TOTAL 0.2 MG/DL (0.1-1.0); CALCIUM 8.5 MG/DL (8.5-10.1); CREATININE SERUM 1.79 MG/DL (0.60-1.30); POTASSIUM 5.1 MMOL/L (3.6-5.0)
[2019-05-05] MEDS: RT-ADVAIR HFA 115/21 MCG PER PUFF IH SCH ×2 (07:30→18:30)
[2019-05-05 08:00] VITALS: BP 134/62
[2019-05-05] MEDS: ALPRAZOLAM 2 MG PO SCH (08:16)
[2019-05-05] MEDS: GEMFIBROZIL 600 MG (LOPID) TAB PO SCH ×2 (08:16→21:04)
[2019-05-05] MEDS: SINEMET 25/100 (CARBIDOPA/LEVODOPA) TAB PO SCH ×4 (08:16→21:04)
[2019-05-05] MEDS: SERTRALINE 100 MG (ZOLOFT) TAB PO SCH ×2 (08:16→21:04)
[2019-05-05] MEDS: amLODIPine 10 MG (NORVASC) TAB PO SCH (08:16)
[2019-05-05] MEDS: LEVETIRACETAM 750 MG PO SCH ×2 (08:16→21:14)
[2019-05-05] MEDS: SERTRALINE 50 MG (ZOLOFT) TABLET PO SCH ×2 (08:16→21:04)
[2019-05-05] MEDS: NICOTINE 21 MG (NICODERM) PATCH TD SCH (08:17)
[2019-05-05] MEDS: lisINopril 10 MG (PRINIVIL) TABLET PO SCH (08:17)
[2019-05-05] MEDS: DIVALPROEX EXT RELEASE 250 MG (DEPAKOTE ER) TAB PO SCH ×2 (08:17→21:04)
--- NOTE | 2019-05-05 09:08 | Occupational Ther Daily Note ---
OT Current Status-Daily Note Subjective Pt laying in bed with family present at start of session. Pt agreeable to OT tx, stating he was waiting on his breakfast to arrive. Pt did not report any pain during OT session. Mental Status/Objective Attachments: Oxygen ADL-Treatment Therapy Code Descriptions/Definitions Functional [place] Measure: 0=Not Assessed/NA 4=Minimal Assistance 1=Total Assistance 5=Supervision or Setup 2=Maximal Assistance 6=Modified [place] 3=Moderate Assistance 7=Complete IndependenceSCALE: Activities may be completed with or without assistive devices. 4-Pbxoivhnya-hqsmokl completes the activity by him/herself with no assistance from a helper. 5-Set-up or Clean-up Assistance-helper sets up or cleans up; patient completes activity. [place] assists only prior to or following the activity. 4-Supervision or Touching Assistance-helper provides verbal cues and/or touching/steadying and/or contact guard assistance as patient completes activity. Assistance may be provided throughout the activity or intermittently. 3-Partial/Moderate Assistance-helper does LESS THAN HALF the effort. [place] lifts, holds or supports trunk or limbs, but provides less than half the effort. 2-Substantial/Maximal Assistance-helper does MORE THAN HALF the effort. [place] lifts or holds trunk or limbs and provides more than half the effort. 3-Aalstzstd-jmcvwk does ALL the effort. Patient does none of the effort to complete the activity. Or, the assistance of 2 or more helpers is required for the patient to complete the activity. If activity was not attempted, code reason: 7-Patient Refused. 9-Not Applicable-not attempted and the patient did not perform the activity before the current illness, exacerbation or injury. 10-Not Attempted due to Environmental Limitations-(lack of equipment, weather restraints, etc.). 88-Not Attempted due to Medical Conditions or Safety Concerns. Eating (QC): 6 Other Treatment Pt denied wanting to get out of bed to complete toileting, hand washing, teeth brushing, and other ADL activities. Pt's breakfast arrived ss OT was encouraging pt to participate in session. Pt opened containers and brought food to his mouth without difficulty. Pt's placed black napkin on pt's black shirt, pt later indicated he needed a napkin and the told him "it's right her", pt indicated he did not see her move his napkin. Pt did not require any cues during breakfast. Post OT session, pt upright in bed eating breakfast, all needs met and call light in reach. Education OT Patient Education: Correct positioning, Energy conservation, Modified ADL techniques, Progress toward Goal/Update tx plan, Purpose of tx/functional activities Teaching Recipient: Patient Teaching Methods: Discussion Response to Teaching: Verbalize Understanding OT Detention Goals Station Cook Goals Time Frame: May 15, 2019 Eating (QC): 6 Oral Hygiene (QC): 6 Toileting Hygiene (QC): 6 Shower/Bathe Self (QC): 6 Upper Body Dressing (QC): 6 Lower Body Dressing (QC): 3 On/Off Footwear (QC): 3 1=Demonstrate adherence to instructed precautions during ADL tasks. 2=Patient will verbalize/demonstrate understanding of assistive devices/modifications for ADL. 3=Patient will improve strength/tolerance for activity to enable patient to perform ADL's. OT Education/Plan Problem List/Assessment Assessment: Decreased Activ Tolerance, Decreased UE Strength Discharge Recommendations Plan/Recommendations: Continue POC Treatment Plan/Plan of Care Treatment,Training & Education: Yes Patient would benefit from OT for education, treatment and training to promote independence in ADL's, mobility, safety and/or upper extremity function for ADL's. Plan of Care: ADL Retraining, Caregiver Training, Functional Mobility, UE Funct Exercise/Act Treatment Duration: May 15, 2019 Frequency: 5 times per week Estimated Hrs Per Day: .25 hour per day Agreement: Yes Rehab Potential: Fair Time/GCodes Start Time: 08:50 Stop Time: 08:58 Total Time Billed (hr/min): 8 Billed Treatment Time 1, ADL ANUP FLORIAN OT May 05, 2019 09:08 POS
--- NOTE | 2019-05-05 09:39 | Progress Note - Hospitalist ---
Subjective HPI/CC On Admission Date Seen by Provider: May 05, 2019 Time Seen by Provider: 09:00 Chief complaint: Confusion with weakness History of present illness: This is a 73-year-old white male with very complex medical problems who is a patient of Dr. Demond Cormier and Dr. garcia at [facility] general surgery who presents to the ER with generalized weakness with pneumonia and confusion. His niece is at the bedside who helps fill in the details that he is unaware of. Apparently in January Dr. Emery diagnosed him with a rectal mass and was sent to a rectal specialist who performed an ileostomy but apparently 10 days after surgery he came to the ER with confusion and sepsis was sent back to [place] and somehow suffered a stroke per the niece report. He was sent to [facility] long-term in [place] and was just discharged this past week after he was doing very well and ambulating around. He got home and apparently he was not eating or drinking well and became confused. Currently patient is improved with IV fluids but significant weakness remains and he may very well be an inpatient rehab candidate. I did restart all of his home medication of which he was most concerned about the hydrocodone. His ileostomy is functioning well. At this current time his confusion has improved. Subjective/Events-last exam Patient doing very well Back at baseline activity walking 400 feet Already has oxygen at home at bedside Everyone comfortable with discharge planning for tomorrow Monitoring creatinine trend No fever Eating and drinking well Ileostomy working very well Denies any other concerns Needs nebulizer solution sent in so I did do that today already Review of Systems General: Fatigue, Malaise Pulmonary: Dyspnea Focused Exam Lactate Level 05/02/19 20:15: Lactic Acid Level 1.04 Objective Exam Vital Signs Vital Signs Date Time Temp Pulse Resp B/P (MAP) Pulse Ox O2 Delivery O2 Flow Rate FiO2 05/05/19 08:00 Nasal Cannula 2.00 05/05/19 08:00 36.9 85 20 134/62 (86) 95 05/03/19 08:00 92 Capillary Refill : Less Than 3 Seconds General Appearance: No Apparent Distress, WD/WN Respiratory: Chest Non Tender, Lungs Clear, Normal Breath Sounds, No Accessory Muscle Use, No Respiratory Distress, Crackles (left lower lobe) Cardiovascular: Regular Rate, Rhythm, No Edema, No Gallop, No JVD, No Murmur, Normal Peripheral Pulses Neurologic/Psychiatric: Alert, Oriented x3, No Motor/Sensory Deficits, Normal Mood/Affect Results/Procedures Lab Laboratory Tests 05/05/19 05:32 Patient resulted labs reviewed. Assessment/Plan Assessment and Plan Assess & Plan/Chief Complaint Assessment: Pneumonia Severe weakness failed DC home from [place] COPD Smoker Neutropenia Ileostomy Rectal cancer 01/2019 Delirium Plan: Abx long-term acquired IVF gently Home meds PT/OT DC home tomorrow Diagnosis/Problems Diagnosis/Problems (1) Pneumonia Status: Acute (2) COPD exacerbation Status: Acute (3) Hypoxia Status: Acute (4) Generalized weakness Status: Acute (5) Mood disorder Status: Acute (6) Hypertension Status: Acute (7) RAY (acute kidney injury) Status: Acute (8) Altered mental status Status: Acute Clinical Quality Measures DVT/VTE Risk/Contraindication: Risk Factor Score Per Nursin RFS Level Per Nursing on Admit: 4+=Very High RANDI HOFFMANN DO May 05, 2019 09:39 POS
[2019-05-05] MEDS ORDERED: IPRA3AMP31 INH ×2 (10:10)
--- NOTE | 2019-05-05 11:24 | Physical Therapy Daily Note ---
PT Daily Note-Current Subjective Patient agrees to PT to walk. States he is having no pain and the plan is to discharge tomorrow. Pain Numeric Pain Scale: 0-No Pain Location: No Pain Reported Mental Status Patient Orientation: Normal For Age Attachments: Oxygen (4L) Transfers SCALE: Activities may be completed with or without assistive devices. 8-Fxydamiaiq-zceusry completes the activity by him/herself with no assistance from a helper. 5-Set-up or Clean-up Assistance-helper sets up or cleans up; patient completes activity. [place] assists only prior to or following the activity. 4-Supervision or Touching Assistance-helper provides verbal cues and/or touching/steadying and/or contact guard assistance as patient completes activity. Assistance may be provided throughout the activity or intermittently. 3-Partial/Moderate Assistance-helper does LESS THAN HALF the effort. [place] lifts, holds or supports trunk or limbs, but provides less than half the effort. 2-Substantial/Maximal Assistance-helper does MORE THAN HALF the effort. [place] lifts or holds trunk or limbs and provides more than half the effort. 9-Jskusriac-xqmbos does ALL the effort. Patient does none of the effort to complete the activity. Or, the assistance of 2 or more helpers is required for the patient to complete the activity. If activity was not attempted, code reason: 7-Patient Refused. 9-Not Applicable-not attempted and the patient did not perform the activity bef ore the current illness, exacerbation or injury. 10-Not Attempted due to Environmental Limitations-(lack of equipment, weather r estraints, etc.). 88-Not Attempted due to Medical Conditions or Safety Concerns. Roll Left & Right (QC): 6 Lying to Sitting/Side of Bed(Q: 6 Sit to Stand (QC): 6 Gait Training Does the Patient Walk?: Yes Distance: 400' Walk 10 feet (QC): 6 Walk 50 ft with 2 Turns(QC): 6 Walk 150 ft (QC): 6 Gait Assistive Device: Cane Large Base Quad Today ambulated at slower pace than previously demonstrating NBOS and knee flexion with shuffling gait that was not present during prior tx. Assessment Patient performed bed mobility independently to sit to EOB. Able to stand independently with FWW. Patient ambulated 400' with FWW demonstrating NBOS and knee flexion with much slower pace than previous tx. Upon return to room, patient was SOB on 4L O2, which he stated was normal, and was able to recover after a minute of rest. Patient seated in recliner with legs elevated at conclusion of treatment. PT Longterm Goals Longterm Goals PT [place] Planner Goals Time Frame: May 05, 2019 Roll Left & Right (QC): 6 Sit to Lying (QC): 6 Lying-Sitting on Side/Bed(QC): 6 Sit to Stand (QC): 6 Chair/Pee-bx-Odqcw Xfer(QC): 6 Toilet Transfer (QC): 6 Car Transfer (QC): 6 Does the Patient Walk: Yes Walk 10 feet (QC): 6 Walk 50ft with 2 Turns (QC): 6 Walk 150 ft (QC): 6 Walking 10ft on Uneven Surface: 6 1 Step (curb) (QC): 6 4 Steps (QC): 9 12 Steps (QC): 9 Picking up an Object (QC): 6 Does the Pt use WC or Scooter?: No Type: N/A Type: N/A PT Plan Treatment/Plan Treatment Plan: Continue Plan of Care Treatment Plan: Bed Mobility, Education, Functional Activity [place], Functional Strength, Gait, Safety, Therapeutic Exercise, Transfers Treatment Duration: May 05, 2019 Frequency: 2 times per week Estimated Hrs Per Day: .25 hour per day Patient and/or Family Agrees t: Yes Time/GCodes Time In: 1025 Time Out: 1040 Total Billed Treatment Time: 15 Total Billed Treatment 1 visit FA 15min NATHANAEL TREVINO PT May 05, 2019 11:24 POS
[2019-05-05 11:40] VITALS: BP 134/62
[2019-05-05 12:00] VITALS: BP 127/59
[2019-05-05] MEDS: ENOXAPARIN 40 MG/0.4 ML (LOVENOX) SYR SC SCH (13:18)
--- NOTE | 2019-05-05 14:48 | NUR ---
provided prayer and Communion.
[2019-05-05 16:23] VITALS: BP 131/65
[2019-05-05 20:12] VITALS: BP 143/68
[2019-05-05] MEDS ORDERED: AZITHROMYCIN 250 MG TAB (ZITHROMAX) PO SCH (21:00)
[2019-05-05] MEDS: CEFEPIME 2,000 MG/SWFI 20 ML IV PUSH IV SCH ×2 (21:03)
[2019-05-05] MEDS: risperiDONE 0.25 MG (RisperDAL) TAB PO SCH (21:04)
[2019-05-05] MEDS: Lovastatin 10 MG TABLET PO SCH (21:15)
[2019-05-06] VITALS: BP 119/66
[2019-05-06] MEDS: RT-ALBUTEROL/IPRATROPIUM 3 ML (DUONEB) VIAL INH SCH ×2 (01:16→06:28)
[2019-05-06 04:59] LABS: BASOPHILS % (AUTO) 1 % (0-10); EOSINOPHILS # (AUTO) 0.2 10^3/uL (0.0-0.3); EOSINOPHILS % (AUTO) 4 % (0-10); HEMATOCRIT 27 % (40-54); HEMOGLOBIN 8.5 G/DL (13.3-17.7); LYMPHOCYTES # (AUTO) 0.5 X 10^3 (1.0-4.0); LYMPHOCYTES % (AUTO) 14 % (12-44); MEAN CORPUSCULAR HEMOGLOBIN 32 PG (25-34); MEAN CORPUSCULAR HGB CONC 32 G/DL (32-36); MEAN CORPUSCULAR VOLUME 100 FL (80-99); MEAN PLATELET VOLUME 9.9 FL (7.4-10.4); MONOCYTES # (AUTO) 0.3 X 10^3 (0.0-1.0); MONOCYTES % (AUTO) 9 % (0-12); NEUTROPHILS # (AUTO) 2.7 X 10^3 (1.8-7.8); NEUTROPHILS % (AUTO) 73 % (42-75); PLATELET COUNT 267 10^3/uL (130-400); WHITE BLOOD COUNT 3.7 10^3/uL (4.3-11.0)
[2019-05-06] MEDS: LEVOTHYROXINE 112 MCG (LEVOTHROID) TAB PO SCH (05:09)
[2019-05-06 05:18] LABS: ALANINE AMINOTRANSFERASE < 6 U/L (0-55); ALKALINE PHOSPHATASE 56 U/L (40-136); BILIRUBIN,TOTAL 0.2 MG/DL (0.1-1.0); BUN/CREATININE RATIO 16; CALCIUM 8.8 MG/DL (8.5-10.1); CARBON DIOXIDE 19 MMOL/L (21-32); CHLORIDE 106 MMOL/L (98-107); CREATININE SERUM 1.66 MG/DL (0.60-1.30); GFR ESTIMATED 41; GLUCOSE 85 MG/DL (70-105); POTASSIUM 4.6 MMOL/L (3.6-5.0); SODIUM 137 MMOL/L (135-145); TOTAL PROTEIN 6.1 GM/DL (6.4-8.2)
[2019-05-06] MEDS: RT-ADVAIR HFA 115/21 MCG PER PUFF IH SCH (06:28)
--- NOTE | 2019-05-06 07:56 | Pulmonary Progress Note ---
Subjective Date Seen by a Provider: May 05, 2019 (late note ) Time Seen by a Provider: 16:00 Subjective/Events-last exam Pt appears to be doing better. Sepsis Event Evaluation Height, Weight, BMI Height: 6'0.00" Weight: 185lbs. 0.0oz. 83.824673kd; 27.29 BMI Method:Stated Exam Exam Vital Signs Date Time Temp Pulse Resp B/P (MAP) Pulse Ox O2 Delivery O2 Flow Rate FiO2 05/06/19 06:29 93 Nasal Cannula 4.00 05/06/19 01:16 92 Nasal Cannula 4.00 05/06/19 00:00 37.9 90 22 119/66 (83) 93 Nasal Cannula 3.00 05/05/19 21:19 94 Nasal Cannula 4.00 05/05/19 20:45 Nasal Cannula 2.00 05/05/19 20:12 37.8 102 22 143/68 (93) 97 Nasal Cannula 3.00 05/05/19 18:35 Nasal Cannula 4.00 05/05/19 18:30 90 Nasal Cannula 4.00 05/05/19 16:23 37.8 89 24 131/65 (87) 92 Nasal Cannula 4.00 05/05/19 14:03 90 Nasal Cannula 4.00 05/05/19 12:00 37.6 105 20 127/59 (81) 95 Nasal Cannula 3.00 05/05/19 11:40 36.9 94 93 32 05/05/19 08:00 Nasal Cannula 2.00 05/05/19 08:00 36.9 85 20 134/62 (86) 95 Nasal Cannula 3.00 I & O 05/06/19 07:00 Intake Total 2450 ml Output Total 850 ml Balance 1600 ml Height & Weight Height: 6'0.00" Weight: 185lbs. 0.0oz. 83.565175bm; 27.29 BMI Method:Stated General Appearance: No Apparent Distress, WD/WN HEENT: PERRL/EOMI, Normal ENT Inspection, Pharynx Normal, Moist Mucous Membranes Neck: Full Range of Motion, Normal Inspection, Non Tender Respiratory: Chest Non Tender, Lungs Clear, Normal Breath Sounds, No Accessory Muscle Use, No Respiratory Distress, Crackles (left lower lobe) Cardiovascular: Regular Rate, Rhythm, No Edema, No Gallop, No JVD, No Murmur, Normal Peripheral Pulses Capillary Refill: Less Than 3 Seconds Extremity: Normal Capillary Refill, Normal Inspection, Normal Range of Motion, Non Tender, No Calf Tenderness, No Pedal Edema Neurologic/Psychiatric: Alert, Oriented x3, No Motor/Sensory Deficits, Normal Mood/Affect Skin: Normal Color, Warm/Dry Lymphatic: No Adenopathy Results Lab Laboratory Tests 05/05/19 05:32 05/06/19 04:35 Assessment/Plan Assessment/Plan PNeumonia -Continue cefepime -Cultures pending COPDAE -SVNS Severe weakness/debility -PT/OT possible IRF Tobacco use Rectal cancer 01/26 LEELA WONG DO May 06, 2019 07:56 POS
--- NOTE | 2019-05-06 07:59 | Pulmonary Progress Note ---
Sepsis Event Evaluation Height, Weight, BMI Height: 6'0.00" Weight: 185lbs. 0.0oz. 83.100793su; 27.29 BMI Method:Stated Exam Exam Vital Signs Date Time Temp Pulse Resp B/P (MAP) Pulse Ox O2 Delivery O2 Flow Rate FiO2 05/06/19 06:29 93 Nasal Cannula 4.00 05/06/19 01:16 92 Nasal Cannula 4.00 05/06/19 00:00 37.9 90 22 119/66 (83) 93 Nasal Cannula 3.00 05/05/19 21:19 94 Nasal Cannula 4.00 05/05/19 20:45 Nasal Cannula 2.00 05/05/19 20:12 37.8 102 22 143/68 (93) 97 Nasal Cannula 3.00 05/05/19 18:35 Nasal Cannula 4.00 05/05/19 18:30 90 Nasal Cannula 4.00 05/05/19 16:23 37.8 89 24 131/65 (87) 92 Nasal Cannula 4.00 05/05/19 14:03 90 Nasal Cannula 4.00 05/05/19 12:00 37.6 105 20 127/59 (81) 95 Nasal Cannula 3.00 05/05/19 11:40 36.9 94 93 32 05/05/19 08:00 Nasal Cannula 2.00 05/05/19 08:00 36.9 85 20 134/62 (86) 95 Nasal Cannula 3.00 I & O 05/06/19 07:00 Intake Total 2450 ml Output Total 850 ml Balance 1600 ml Height & Weight Height: 6'0.00" Weight: 185lbs. 0.0oz. 83.814480hr; 27.29 BMI Method:Stated General Appearance: No Apparent Distress, WD/WN HEENT: PERRL/EOMI, Normal ENT Inspection, Pharynx Normal, Moist Mucous Membranes Neck: Full Range of Motion, Normal Inspection, Non Tender Respiratory: Chest Non Tender, Lungs Clear, Normal Breath Sounds, No Accessory Muscle Use, No Respiratory Distress, Crackles (left lower lobe) Cardiovascular: Regular Rate, Rhythm, No Edema, No Gallop, No JVD, No Murmur, Normal Peripheral Pulses Capillary Refill: Less Than 3 Seconds Extremity: Normal Capillary Refill, Normal Inspection, Normal Range of Motion, Non Tender, No Calf Tenderness, No Pedal Edema Neurologic/Psychiatric: Alert, Oriented x3, No Motor/Sensory Deficits, Normal Mood/Affect Skin: Normal Color, Warm/Dry Lymphatic: No Adenopathy Results Lab Laboratory Tests 05/05/19 05:32 05/06/19 04:35 Assessment/Plan Assessment/Plan PNeumonia - cefepime -- change to Omnicef for total Abx 7days -Cultures-- neg COPDAE -SVNS , adviar Severe weakness/debility -PT/OT possible IRF Tobacco use Rectal cancer 01/26 Pt is ok from pulmonary standpoint for discharge. LEELA WONG DO May 06, 2019 07:59 POS
[2019-05-06 08:00] VITALS: BP 123/63
[2019-05-06] MEDS: GEMFIBROZIL 600 MG (LOPID) TAB PO SCH (08:37)
[2019-05-06] MEDS: NICOTINE 21 MG (NICODERM) PATCH TD SCH (08:38)
[2019-05-06] MEDS: SINEMET 25/100 (CARBIDOPA/LEVODOPA) TAB PO SCH (08:38)
[2019-05-06] MEDS: amLODIPine 10 MG (NORVASC) TAB PO SCH (08:38)
[2019-05-06] MEDS: SERTRALINE 50 MG (ZOLOFT) TABLET PO SCH (08:38)
[2019-05-06] MEDS: DIVALPROEX EXT RELEASE 250 MG (DEPAKOTE ER) TAB PO SCH (08:39)
[2019-05-06] MEDS: LEVETIRACETAM 750 MG PO SCH (08:41)
[2019-05-06] MEDS: ALPRAZOLAM 2 MG PO SCH (08:46)
[2019-05-06] MEDS ORDERED: CEFDINIR 300 MG (OMNICEF) CAP PO SCH (09:00)
--- NOTE | 2019-05-06 09:07 | Occupational Ther Daily Note ---
OT Current Status-Daily Note Subjective Pt upright in recliner at start of session, stating he feels pretty good today. Agreeable to OT session with focus on UE strengthening. Mental Status/Objective Attachments: Oxygen ADL-Treatment Therapy Code Descriptions/Definitions Functional [place] Measure: 0=Not Assessed/NA 4=Minimal Assistance 1=Total Assistance 5=Supervision or Setup 2=Maximal Assistance 6=Modified [place] 3=Moderate Assistance 7=Complete IndependenceSCALE: Activities may be completed with or without assistive devices. 4-Qvdspqwgvb-odwkevl completes the activity by him/herself with no assistance from a helper. 5-Set-up or Clean-up Assistance-helper sets up or cleans up; patient completes activity. [place] assists only prior to or following the activity. 4-Supervision or Touching Assistance-helper provides verbal cues and/or touching/steadying and/or contact guard assistance as patient completes activity. Assistance may be provided throughout the activity or intermittently. 3-Partial/Moderate Assistance-helper does LESS THAN HALF the effort. Dawn lift s, holds or supports trunk or limbs, but provides less than half the effort. 2-Substantial/Maximal Assistance-helper does MORE THAN HALF the effort. Dawn lifts or holds trunk or limbs and provides more than half the effort. 9-Bslmlblxt-ikviii does ALL the effort. Patient does none of the effort to complete the activity. Or, the assistance of 2 or more helpers is required for the patient to complete the activity. If activity was not attempted, code reason: 7-Patient Refused. 9-Not Applicable-not attempted and the patient did not perform the activity before the current illness, exacerbation or injury. 10-Not Attempted due to Environmental Limitations-(lack of equipment, weather restraints, etc.). 88-Not Attempted due to Medical Conditions or Safety Concerns. Eating (QC): 6 (Pt able to bring pills and water to his mouth in order to take his medicine. ) Upper Body Dressing (QC): 7 (pt stated he already completed task this AM) Other Treatment Pt seated upright in recliner. in order to increase BUE strengthening to increase indpendence in ADLs and functional activities, pt performed x8 reps each of the following exercises BUE using yellow theraband: horizontal abduction, & elbow extension. Pt required rest breaks between each exercise, nurse present to give pt meds during rest break. Post OT session, pt upright in recliner, call light in reach and all needs met. Education OT Patient Education: Correct positioning, Energy conservation, Exercise program, Progress toward Goal/Update tx plan, Purpose of tx/functional activities Teaching Recipient: Patient Teaching Methods: Demonstration, Discussion Response to Teaching: Verbalize Understanding, Return Demonstration OT [facility] Goals Engineering Teacher Goals Time Frame: May 15, 2019 Eating (QC): 6 Oral Hygiene (QC): 6 Toileting Hygiene (QC): 6 Shower/Bathe Self (QC): 6 Upper Body Dressing (QC): 6 Lower Body Dressing (QC): 3 On/Off Footwear (QC): 3 1=Demonstrate adherence to instructed precautions during ADL tasks. 2=Patient will verbalize/demonstrate understanding of assistive devices/modific ations for ADL. 3=Patient will improve strength/tolerance for activity to enable patient to perform ADL's. OT Education/Plan Problem List/Assessment Assessment: Decreased Activ Tolerance, Decreased UE Strength, Impaired I ADL's, Impaired Self-Care Skills Discharge Recommendations Plan/Recommendations: Continue POC Treatment Plan/Plan of Care Treatment,Training & Education: Yes Patient would benefit from OT for education, treatment and training to promote independence in ADL's, mobility, safety and/or upper extremity function for ADL's. Plan of Care: ADL Retraining, Caregiver Training, Functional Mobility, UE Funct Exercise/Act Treatment Duration: May 15, 2019 Frequency: 5 times per week Estimated Hrs Per Day: .25 hour per day Agreement: Yes Rehab Potential: Fair Time/GCodes Start Time: 08:40 Stop Time: 08:48 Total Time Billed (hr/min): 8 Billed Treatment Time 1, EX ANUP FLORIAN OT May 06, 2019 09:07 POS
--- NOTE | 2019-05-06 09:35 | Physical Therapy Daily Note ---
PT Daily Note-Current Subjective Patient in recliner pre tx, agrees to PT, has no complaints of pain. Appearance Patient in recliner post tx with nurse call, phone, tray, family in the room. Mental Status Patient Orientation: Person, Place Attachments: Oxygen Transfers SCALE: Activities may be completed with or without assistive devices. 0-Bakogcwnrj-sxtpmcj completes the activity by him/herself with no assistance from a helper. 5-Set-up or Clean-up Assistance-helper sets up or cleans up; patient completes activity. [place] assists only prior to or following the activity. 4-Supervision or Touching Assistance-helper provides verbal cues and/or touching/steadying and/or contact guard assistance as patient completes activity. Assistance may be provided throughout the activity or intermittently. 3-Partial/Moderate Assistance-helper does LESS THAN HALF the effort. [place] lifts, holds or supports trunk or limbs, but provides less than half the effort. 2-Substantial/Maximal Assistance-helper does MORE THAN HALF the effort. [place] lifts or holds trunk or limbs and provides more than half the effort. 1-Upnmlohhq-aqjfig does ALL the effort. Patient does none of the effort to complete the activity. Or, the assistance of 2 or more helpers is required for the patient to complete the activity. If activity was not attempted, code reason: 7-Patient Refused. 9-Not Applicable-not attempted and the patient did not perform the activity before the current illness, exacerbation or injury. 10-Not Attempted due to Environmental Limitations-(lack of equipment, weather restraints, etc.). 88-Not Attempted due to Medical Conditions or Safety Concerns. Sit to Stand (QC): 4 Chair/Jue-ba-Kxxzl Xfer(QC): 4 CGA, needs cues for hand placement when standing and sitting Gait Training Distance: 300' Walk 10 feet (QC): 4 Walk 50 ft with 2 Turns(QC): 4 Walk 150 ft (QC): 4 Gait Assistive Device: FWW Patient ambulates very slowly and with bilateral flexed knees, is a little shaky but steady Treatments ambulation Assessment Current Status: Fair Progress improving ambulation PT Production Hardener Goals Production Hardener Goals PT Halfway Goals Time Frame: May 05, 2019 Roll Left & Right (QC): 6 Sit to Lying (QC): 6 Lying-Sitting on Side/Bed(QC): 6 Sit to Stand (QC): 6 Chair/Kyc-vw-Ymigp Xfer(QC): 6 Toilet Transfer (QC): 6 Car Transfer (QC): 6 Does the Patient Walk: Yes Walk 10 feet (QC): 6 Walk 50ft with 2 Turns (QC): 6 Walk 150 ft (QC): 6 Walking 10ft on Uneven Surface: 6 1 Step (curb) (QC): 6 4 Steps (QC): 9 12 Steps (QC): 9 Picking up an Object (QC): 6 Does the Pt use WC or Scooter?: No Type: N/A Type: N/A PT Plan Problem List Problem List: Activity Tolerance, Functional Strength, Safety, Balance, Gait, Transfer, Bed Mobility, ROM Treatment/Plan Treatment Plan: Continue Plan of Care Treatment Plan: Bed Mobility, Education, Functional Activity [place], Functional Strength, Gait, Safety, Therapeutic Exercise, Transfers Treatment Duration: May 05, 2019 Frequency: 2 times per week Estimated Hrs Per Day: .25 hour per day Patient and/or Family Agrees t: Yes Safety Risks/Education Patient Education: Gait Training, Transfer Techniques, Correct Positioning, Saf ety Issues Teaching Recipient: Patient Teaching Methods: Demonstration, Discussion Response to Teaching: Reinforcement Needed Time/GCodes Time In: 919 Time Out: 931 Total Billed Treatment Time: 12 Total Billed Treatment 1 visit GT ROSE ALVAREZ PT May 06, 2019 09:35 POS
--- NOTE | 2019-05-06 09:37 | D/C HH Face to Face Order ---
D/C Face to Face Orders Reconcile Patient Problems Problems Reviewed?: Yes Instructions for Patient Via [facility], Patient Instructions/FollowUp: Dr Cormier in 1 week Physician to follow Patient: Dr Stephen Cormier Discharge Diet for Home: No Restrictions Patient Problems: Pneumonia Ileostomy COPD Patient Data-Allergies,Ht & Wt Patient Allergies: Coded Allergies: No Known Drug Allergies (Unverified , 08/19/11) Height (Feet): 6 Height (Inches): 0.00 Weight (Pounds): 185 Weight (Ounces): 0.0 Home Health Need/Face to Face Date of Face to Face: May 06, 2019 Clinical Findings: Generalized weakness and fatigue, Immune-compromised, Instability, Muscle weakness, Shortness of breath, Unsteady gait I have seen Pt cemr-ye-uxqe: Yes Discharged To: Home Diagnosis/Conditions: Pneumonia Ileostomy COPD Patient is Homebound due to: CognItive deficits, Shabbir fall risk due to instabilty, Muscle weakness, Shortness of breath/distress Homebound Status Due to the above stated illness, injury or surgical procedure (medical condition or diagnosis) and associated clinical findings, the patient is homebound because of his/her inability to leave home except with aid of a supportive device and/or person AND leaving the home requires a considerable and taxing effort or is medically contraindicated. Pt req the following assistanc: [facility] Health Nursing Orders Home Health Services Order: Nursing Services, Integrated Circuit Ic Layout Designer-Evaluate & Treat, Physical Therapy-Evaluate & Treat Home Health Infusion Therapy Line Start Date: May 02, 2019 Certify Stmt I certify that this patient is under my care and that I, a nurse practitioner or a physician; a real estate executive assistant working with me, had a face to face encounter that - meets the physician face to face encounter requirements with this patient as dated. RANDI HOFFMANN DO May 06, 2019 09:37 POS
[2019-05-06] MEDS ORDERED: CEFD300C3 PO ×2 (09:38)
[2019-05-06] MEDS ORDERED: LISI10TA2 PO ×2 (09:38)
--- NOTE | 2019-05-06 09:40 | Discharge Summary ---
Discharge Summary Hospital Course Was the Problem List Reviewed?: Yes Problems/Dx: (1) Pneumonia Status: Acute (2) COPD exacerbation Status: Acute (3) Hypoxia Status: Acute (4) Generalized weakness Status: Acute (5) Mood disorder Status: Acute (6) Hypertension Status: Acute (7) RAY (acute kidney injury) Status: Acute (8) Altered mental status Status: Acute Hospital Course Date of Admission: May 03, 2019 at 15:25 Admission Diagnosis : Family Physician/Provider: Demond Cormier DO Date of Discharge: 05/06/19 Discharge Diagnosis: PNA, AECOPD, Delirium, HTN, Rectal cancer, Ileostomy Hospital Course: Hospital Course: Pt had an uneventful hospital course for 4 days after he was admitted for a pneumonia with COPD exacerbation with generalized weakness after DC from [facility] following an ileostomy placement after rectal carcinoma resection and suffered a stroke per the family while hospitalized at [place]. So recovered nicely for a couple of weeks at [facility] in [place] but began having confusion and weakness found to have pneumonia initiated inpatient orders for IV antibiotics and Dr. Wright consultation. Pt overall did very well and had no complications with the ileostomy , restarted on all home medication and ultimately he was back to hs baseline with PT and OT and did not require any type of inpatient rehab so will resume home health care. Labs and Pending Lab Test: Laboratory Tests 05/06/19 04:35: White Blood Count 3.7L, Red Blood Count 2.68L, Hemoglobin 8.5L, Hematocrit 27L, Mean Corpuscular Volume 100H, Mean Corpuscular Hemoglobin 32, Mean Corpuscular Hemoglobin Concent 32, Red Cell Distribution Width 15.0H, Platelet Count 267, Mean Platelet Volume 9.9, Neutrophils (%) (Auto) 73, Lymphocytes (%) (Auto) 14, Monocytes (%) (Auto) 9, Eosinophils (%) (Auto) 4, Basophils (%) (Auto) 1, Neutrophils # (Auto) 2.7, Lymphocytes # (Auto) 0.5L, Monocytes # (Auto) 0.3, Eosinophils # (Auto) 0.2, Basophils # (Auto) 0.0, Sodium Level 137, Potassium Level 4.6, Chloride Level 106, Carbon Dioxide Level 19L, Anion Gap 12, Blood Urea Nitrogen 26H, Creatinine 1.66H, Estimat Glomerular Filtration Rate 41, BUN/Creatinine Ratio 16, Glucose Level 85, Calcium Level 8.8, Corrected Calcium 9.6, Total Bilirubin 0.2, Aspartate Amino Transf (AST/SGOT) 11, Alanine Aminotransferase (ALT/SGPT) < 6, Alkaline Phosphatase 56, Total Protein 6.1L, Al bumin 3.0L Microbiology 05/02/19 Blood Culture - Preliminary, Resulted No growth 05/02/19 Influenza Types A,B Antigen (KEARA) - Final, Complete 05/02/19 Urine Culture - Final, Complete NO GROWTH Home Meds Active Lisinopril 10 Mg Tablet 10 Mg PO DAILY Cefdinir 300 Mg Capsule 300 Mg PO BID Iprat-Albut 0.5-3(2.5) mg/3 ml (Ipratropium/Albuterol Sulfate) 3 Ml Ampul.neb 3 Ml INH RTQ4HR Reported Cyanocobalamin Injection (Cyanocobalamin) 1,000 Mcg/Ml Inj 1,000 Mcg IM MONTHLY Risperidone 0.5 Mg Tablet 0.5 Mg PO DAILY Xanax (Alprazolam) 0.5 Mg Tablet 0.5 Mg PO HS Alprazolam 0.5 Mg Tablet 0.25 Mg PO BID PRN Flomax (Tamsulosin HCl) 0.4 Mg Cap 0.8 Mg PO 1800 TAKES 2(0.4mg) CAP TO EQUAL 0.8M AND TAKES WITH EVENING MEAL Sertraline HCl 50 Mg Tablet 50 Mg PO BID Alprazolam Xr (Alprazolam) 2 Mg Tab.er.24h 2 Mg PO DAILY PRN Sertraline HCl 100 Mg Tablet 100 Mg PO BID Symbicort 160-4.5 Mcg Inhaler (Budesonide/Formoterol Fumarate) 10.2 Gm Hfa.aer.ad 2 Puff IH BID Lovastatin 10 Mg Tablet 10 Mg PO Q48H Divalproex Sodium ER (Divalproex Sodium) 250 Mg Tab.er.24h 250 Mg PO BID Carbidopa-Levodopa 25-100 Tab (Carbidopa/Levodopa) 1 Each Tablet 1 Each PO QID Risperidone 0.5 Mg Tablet 0.75 Mg PO HS TAKE 1 &1/2 TABS OF THE 0.5MG TO EQUAL 0.75MH Hydrocodon-Acetaminophn 10-325 (Hydrocodone/Acetaminophen) 1 Each Tablet 1 Tab PO Q4H PRN Levothyroxine Sodium 112 Mcg Tablet 112 Mcg PO DAILY Felodipine ER (Felodipine) 10 Mg Tab.er.24h 10 Mg PO DAILY Gemfibrozil 600 Mg Tablet 600 Mg PO BID Levetiracetam 750 Mg Tablet 750 Mg PO BID Assessment/Pt Instructions Dr Cormier in 1 week Discharge Planning: <30 minutes discharge planning Discharge Instructions Discharge Diet: No Restrictions Activity as Tolerated: Yes Discharge Physical Examination Vital Signs Vital Signs Date Time Temp Pulse Resp B/P (MAP) Pulse Ox O2 Delivery O2 Flow Rate FiO2 05/06/19 08:00 37.1 86 18 123/63 (83) 91 Nasal Cannula 3.00 05/05/19 11:40 32 General Appearance: No Apparent Distress, WD/WN Respiratory: Lungs Clear Neurologic/Psychiatric: Alert, Oriented x3, No Motor/Sensory Deficits, Normal Mood/Affect Allergies: Coded Allergies: No Known Drug Allergies (Unverified , 08/19/11) Discharge Summary Date of Admission May 03, 2019 at 15:25 Date of Discharge Discharge Date: May 06, 2019 Admission Diagnosis Assessment: Pneumonia Severe weakness failed [place] home from [place] COPD Smoker Neutropenia Ileostomy Rectal cancer 01/2019 Plan: [facility]x prison acquired IVF gently Home meds PT/OT IRF? Discharge Diagnosis Assessment: Pneumonia Severe weakness failed [place] home from [place] COPD Smoker Neutropenia Ileostomy Rectal cancer 01/2019 Delirium Plan: [facility]x [facility] acquired IVF gently Home meds PT/OT DC home tomorrow (1) Pneumonia Status: Acute (2) COPD exacerbation Status: Acute (3) Hypoxia Status: Acute (4) Generalized weakness Status: Acute (5) Mood disorder Status: Acute (6) Hypertension Status: Acute (7) RAY (acute kidney injury) Status: Acute (8) Altered mental status Status: Acute Clinical Quality Measures DVT/VTE Risk/Contraindication: Risk Factor Score Per Nursin RFS Level Per Nursing on Admit: 4+=Very High RANDI HOFFMANN DO May 06, 2019 09:39 POS
--- NOTE | 2019-05-06 10:25 | NUR ---
Important Message from Medicare presented, reviewed, signed and placed in patient chart. Patient and voiced no intention to appeal and deny any needs or further questions at this time.
[2019-05-06] MEDS: lisINopril 10 MG (PRINIVIL) TABLET PO SCH (10:56)
[2019-05-06] MEDS: HYDROcodone/APAP 10 MG/325 MG (LORTAB) TAB PO PRN (10:57)
[2019-05-06] MEDS: SERTRALINE 100 MG (ZOLOFT) TAB PO SCH (10:59)
--- NOTE | 2019-05-06 11:29 | NUR ---
Arrangements completed for pt discharge home. Pt's and niece here to assist him. Faxed physician orders to [facility] to resume home health care at the request of pt's No other needs identified.
== END 2019-05-06 11:55 | disposition home health service (06) | DRG 194 ==
LOC: EDUNIT# 19:54 → ER 19:55 → UNDOADMOB 22:15 → 4TH 22:15 → INTOOBSV 05-03 15:25 → OBSVTOIN 05-03 15:25 → UNDODISIN 05-06 11:55
PROVIDERS: ADMIT Family Medicine; ATTEND Internal Medicine
DX: J18.9 Pneumonia, unspecified organism (principal); J43.9 Emphysema, unspecified; N17.9 Acute kidney failure, unspecified; I12.9 Hypertensive chronic kidney disease with stage 1 through stage 4 chronic kidney disease, or unspecified chronic kidney disease; N18.9 Chronic kidney disease, unspecified; D70.9 Neutropenia, unspecified; R41.0 Disorientation, unspecified; R53.1 Weakness; R53.81 Other malaise; G47.34 Idiopathic sleep related nonobstructive alveolar hypoventilation; F17.210 Nicotine dependence, cigarettes, uncomplicated; E83.42 Hypomagnesemia; F10.21 Alcohol dependence, in remission; E78.00 Pure hypercholesterolemia, unspecified; K21.9 Gastro-esophageal reflux disease without esophagitis; G20 Parkinson's disease; E03.9 Hypothyroidism, unspecified; M54.9 Dorsalgia, unspecified; M19.91 Primary osteoarthritis, unspecified site; F41.9 Anxiety disorder, unspecified; F31.9 Bipolar disorder, unspecified; F60.9 Personality disorder, unspecified; F02.80 Dementia in other diseases classified elsewhere, unspecified severity, without behavioral disturbance, psychotic disturbance, mood disturbance, and anxiety; R41.3 Other amnesia; Z85.048 Personal history of other malignant neoplasm of rectum, rectosigmoid junction, and anus; Z93.2 Ileostomy status; Z90.49 Acquired absence of other specified parts of digestive tract; Z86.73 Personal history of transient ischemic attack (TIA), and cerebral infarction without residual deficits; Z86.718 Personal history of other venous thrombosis and embolism; Z86.19 Personal history of other infectious and parasitic diseases
CPT/HCPCS: 36415; 51702; 71045; 80053; 80164; 80170; 80320; 81000; 82150; 82550; 82553; 82805; 83605; 83690; 83735; 83880; 84145; 84443; 84484; 85025; 85610; 85730; 87040; 87088; 87804; 93005; 93041; 94640; 94760; 96365; 96366; 96375; G0378

== ENCOUNTER 2020-05-04 18:28 | Emergency (ER) | payer MEDICARE, OTHER ==
[~2020-05-04] VITALS: Ht 182 cm; Wt 89.0 kg
[~2020-05-04 18:28] MED LIST changes: +ACHYD1T PO; +ALPR2TAB PO; +BUDE10.2 IH; +CEFD300C3 PO; +CNC1KV IM; -FELO10TA3 PO; +FELO10TA41 PO; -GENTAMICIN 100 MG/NS 100 ML IVPB IV ONE; -HYDR-3820 PO; +IPRA3AMP31 INH; +OMEP40CA27 PO; -OMEP40CA36 PO; -RISP0.5T3 PO; +RISP0.5T65 PO; +SERT50TA9 PO; +TMSL.4C PO
[2020-05-04 21:01] LABS: BASOPHILS % (AUTO) 0 % (0-10); EOSINOPHILS # (AUTO) 0.2 10^3/uL (0.0-0.3); EOSINOPHILS % (AUTO) 3 % (0-10); HEMATOCRIT 37 % (40-54); HEMOGLOBIN 11.7 g/dL (13.3-17.7); LYMPHOCYTES # (AUTO) 1.3 10^3/uL (1.0-4.0); LYMPHOCYTES % (AUTO) 20 % (12-44); MEAN CORPUSCULAR HEMOGLOBIN 32 pg (25-34); MEAN CORPUSCULAR HGB CONC 32 g/dL (32-36); MEAN CORPUSCULAR VOLUME 101 fL (80-99); MEAN PLATELET VOLUME 9.8 fL (9.0-12.2); MONOCYTES # (AUTO) 0.7 10^3/uL (0.0-1.0); MONOCYTES % (AUTO) 10 % (0-12); NEUTROPHILS # (AUTO) 4.2 10^3/uL (1.8-7.8); NEUTROPHILS % (AUTO) 67 % (42-75); PLATELET COUNT 235 10^3/uL (130-400); WHITE BLOOD COUNT 6.3 10^3/uL (4.3-11.0)
[2020-05-04] MEDS ORDERED: cefTRIAXone 1,000 MG IV (ROCEPHIN) VIAL ONE (21:04)
[2020-05-04] MEDS ORDERED: AZITHROMYCIN INJECTION 500 MG/5 ML VIAL ONE (21:04)
[2020-05-04] MEDS ORDERED: cefTRIAXone FOR IV USE 1,000 MG in WATER (STERILE) FOR INJECTION 10 ML IV ONE (21:15)
[2020-05-04] MEDS ORDERED: AZITHROMYCIN INJECTION 500 MG in NS (IVPB) 250 ML IV ONE (21:15)
[2020-05-04 21:27] LABS: ERYTHROCYTE SEDIMENTATION RATE 67 MM/HR (0-30)
[2020-05-04 21:35] LABS: INR 2.1 (0.8-1.4); PROTHROMBIN TIME PATIENT 23.6 SEC (12.2-14.7)
[2020-05-04 21:47] LABS: ALBUMIN 3.8 GM/DL (3.2-4.5)
[2020-05-04 21:48] LABS: CALCIUM 8.4 MG/DL (8.5-10.1)
[2020-05-04 21:49] LABS: GLUCOSE 105 MG/DL (70-105); TOTAL PROTEIN 7.3 GM/DL (6.4-8.2)
[2020-05-04 21:50] LABS: CARBON DIOXIDE 23 MMOL/L (21-32)
[2020-05-04 21:51] LABS: BILIRUBIN,TOTAL 0.2 MG/DL (0.1-1.0)
[2020-05-04 21:53] LABS: ALKALINE PHOSPHATASE 77 U/L (40-136); CREATININE SERUM 1.65 MG/DL (0.60-1.30); GFR ESTIMATED 41
[2020-05-04 21:54] LABS: BUN/CREATININE RATIO 16
--- NOTE | 2020-05-04 22:01 | Diagnostic Imaging Report ---
INDICATION: Cough. EXAMINATION: Portable erect AP chest at 8:57 p.m. FINDINGS: The heart is stable in size when compared to the prior exam of 05/02/2019. In the interval since the prior study, a vague alveolar/interstitial infiltrate has developed in the right lung base. This does suggest pneumonia/atelectasis. The right upper lung and left lung are relatively clear. The mediastinum is not widened. The osseous structures are intact. IMPRESSION: The appearance of the chest has worsened since the prior study as right lower lobe pneumonia/atelectasis has developed. Dictated by: Dictated on workstation # [id number]
[2020-05-04 22:12] LABS: ALANINE AMINOTRANSFERASE < 6 U/L (0-55); CHLORIDE 105 MMOL/L (98-107); CREATINE KINASE 50 U/L (30-200); MAGNESIUM 2.2 MG/DL (1.6-2.4); POTASSIUM 3.4 MMOL/L (3.6-5.0); SODIUM 140 MMOL/L (135-145)
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
[2020-05-04 22:32] LABS: CREATINE KINASE MB 2.1 NG/ML (<6.6)
[2020-05-04] MEDS ORDERED: LACTATED RINGERS 1,000 ML IV ONE (22:54)
[2020-05-04] MEDS ORDERED: RX-ALBUTEROL INHALER (VENTOLIN HFA) 18 GM IH STA (23:14)
[2020-05-04] MEDS ORDERED: AZITHROMYCIN 250 MG TAB (ZITHROMAX) PO ONE (23:15)
[2020-05-04] MEDS ORDERED: DEXA6TAB6 PO (23:22)
[2020-05-04] MEDS ORDERED: AZIT500T PO (23:22)
[2020-05-04] MEDS ORDERED: BENZ100C18 PO (23:22)
[2020-05-04] MEDS ORDERED: CEFD300C3 PO (23:22)
[2020-05-04] MEDS ORDERED: dexAMETHasone 6 MG TAB (DECADRON) ONE (23:24)
[2020-05-04] MEDS ORDERED: RX-CEFDINIR 300 MG CAP PPK #2 PO ONE (23:26)
[2020-05-05 00:24] VITALS: BP 159/89
[2020-05-05 03:38] LABS: TSH (THYROID ANALYZER) 4.91 UIU/ML (0.35-4.94)
[2020-05-05] MEDS ORDERED: dexAMETHasone 6 MG TAB (DECADRON) PO SCH (07:00)
[2020-05-05] MEDS ORDERED: RX-CEFDINIR 300 MG CAP PPK #2 PO SCH (09:00)
== END 2020-05-05 00:24 | disposition home or self-care (01) ==
LOC: EDUNIT# 18:28 → ER 18:29
DX: C18.9 Malignant neoplasm of colon, unspecified (principal); J18.1 Lobar pneumonia, unspecified organism; J44.9 Chronic obstructive pulmonary disease, unspecified; N28.9 Disorder of kidney and ureter, unspecified; I10 Essential (primary) hypertension; E78.00 Pure hypercholesterolemia, unspecified; E03.9 Hypothyroidism, unspecified; F41.9 Anxiety disorder, unspecified; F20.9 Schizophrenia, unspecified; F31.9 Bipolar disorder, unspecified; G89.29 Other chronic pain; M54.9 Dorsalgia, unspecified; Z20.828 Contact with and (suspected) exposure to other viral communicable diseases; F17.210 Nicotine dependence, cigarettes, uncomplicated; Z85.828 Personal history of other malignant neoplasm of skin; Z86.73 Personal history of transient ischemic attack (TIA), and cerebral infarction without residual deficits; Z86.718 Personal history of other venous thrombosis and embolism; Z79.890 Hormone replacement therapy; Z79.01 Long term (current) use of anticoagulants; Z79.891 Long term (current) use of opiate analgesic
CPT/HCPCS: 71045; 80053; 80164; 82550; 82553; 83605; 83615; 83735; 83874; 83880; 84145; 84443; 84484; 85025; 85610; 85652; 85730; 86141; 87040; 87804; 93041; 99284; U0002; 36415; 87635

== ENCOUNTER 2021-01-19 10:59 | Outpatient (RCR) | payer MEDICARE, OTHER ==
[~2021-01-19 10:59] MED LIST changes: +AZIT500T PO; +BENZ100C18 PO; +DEXA6TAB6 PO; -GEMF600T8 PO; +GEMF600T88 PO; -LISI10TA2 PO; +LISI10TA25 PO; -OMEP40CA27 PO; +OMEP40CA6 PO; +SERT-413 PO; +SERT-414 PO; -SERT100T8 PO; -SERT50TA9 PO
[2021-03-14] MEDS ORDERED: SULF1TAB38 PO (20:05)
== END 2021-04-04 | disposition home or self-care (01) ==
LOC: ONC 10:59
PROVIDERS: ATTEND Radiology Radiation Oncology
DX: Z51.0 Encounter for antineoplastic radiation therapy (principal); C20 Malignant neoplasm of rectum; J43.9 Emphysema, unspecified; E78.00 Pure hypercholesterolemia, unspecified; I10 Essential (primary) hypertension; E03.9 Hypothyroidism, unspecified; F31.9 Bipolar disorder, unspecified; G40.909 Epilepsy, unspecified, not intractable, without status epilepticus; G20 Parkinson's disease; Z79.899 Other long term (current) drug therapy
CPT/HCPCS: 77290; 77334; G0463; 77280; 77295; 77300; 77336; 99205

== ENCOUNTER 2021-03-14 17:56 | Emergency (ER) | payer MEDICARE, OTHER ==
[~2021-03-14] VITALS: Ht 182 cm; Wt 86.6 kg
[2021-03-14] MEDS ORDERED: RX-MUPIROCIN (BACTROBAN) 2% OINT 22 GM TUBE TOP STA (20:00)
[2021-03-14] MEDS ORDERED: SULF1TAB38 PO (20:05)
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
[2021-03-14 20:08] VITALS: BP 126/84
== END 2021-03-14 20:13 | disposition home or self-care (01) ==
LOC: EDUNIT# 17:56 → ER 17:59
DX: H60.01 Abscess of right external ear (principal); J44.9 Chronic obstructive pulmonary disease, unspecified; I10 Essential (primary) hypertension; Z86.73 Personal history of transient ischemic attack (TIA), and cerebral infarction without residual deficits; F03.90 Unspecified dementia, unspecified severity, without behavioral disturbance, psychotic disturbance, mood disturbance, and anxiety; F20.9 Schizophrenia, unspecified; E03.9 Hypothyroidism, unspecified; G89.29 Other chronic pain; M54.9 Dorsalgia, unspecified; E78.00 Pure hypercholesterolemia, unspecified; F41.9 Anxiety disorder, unspecified; F31.9 Bipolar disorder, unspecified; F17.210 Nicotine dependence, cigarettes, uncomplicated; Z20.822 Contact with and (suspected) exposure to COVID-19; Z79.890 Hormone replacement therapy; Z79.899 Other long term (current) drug therapy; Z79.891 Long term (current) use of opiate analgesic
CPT/HCPCS: 87070; 87077; 87186; 87205; 87636; 99283

== ENCOUNTER 2021-04-23 02:31 | Outpatient (RCR) | payer MEDICARE, OTHER ==
[~2021-04-23 02:31] MED LIST changes: +SULF1TAB38 PO
[2021-06-05] MEDS ORDERED: FLD5TCR PO (15:03)
[2021-06-05] MEDS ORDERED: LISI10TA25 PO (15:06)
[2021-06-05] MEDS ORDERED: POTA-51 PO (15:06)
[2021-06-05] MEDS ORDERED: RISP0.5T65 PO (15:08)
[2021-06-05] MEDS ORDERED: DIPH1TAB PO (15:09)
[2021-06-05] MEDS ORDERED: HYDR-3924 PO (15:10)
[2021-06-05] MEDS ORDERED: BUPR150T14 PO (15:10)
[2021-06-05] MEDS ORDERED: TMSL.4C PO (15:15)
[2021-06-05] MEDS ORDERED: ONDA-105 PO (15:15)
[2021-06-05] MEDS ORDERED: FURO20TA4 PO (15:15)
[2021-06-05] MEDS ORDERED: WARF-48 PO (15:15)
[2021-06-05] MEDS ORDERED: NFCAPE500T PO (15:15)
[2021-06-05] MEDS ORDERED: DICY10CA12 PO (15:15)
[2021-06-05] MEDS ORDERED: ALPR2TAB PO (15:16)
[2021-06-06] MEDS ORDERED: CEFD300C3 PO (11:59)
[2021-06-06] MEDS ORDERED: MICO90PO TOP (11:59)
[2021-06-06] MEDS ORDERED: MEGE40TA5 PO (12:01)
== END 2021-06-09 | disposition home or self-care (01) ==
LOC: ONC 02:31
PROVIDERS: ATTEND Radiology Radiation Oncology
DX: Z51.0 Encounter for antineoplastic radiation therapy (principal); C20 Malignant neoplasm of rectum; C77.5 Secondary and unspecified malignant neoplasm of intrapelvic lymph nodes; J43.9 Emphysema, unspecified; E78.00 Pure hypercholesterolemia, unspecified; I10 Essential (primary) hypertension; E03.9 Hypothyroidism, unspecified; Z79.899 Other long term (current) drug therapy
CPT/HCPCS: 77336

== ENCOUNTER 2021-06-04 14:02 | Inpatient (IN) | payer MEDICARE, OTHER ==
[~2021-06-04] VITALS: Ht 182.9 cm; Wt 83.9 kg
[2021-06-04] MEDS ORDERED: LACTATED RINGERS 1,000 ML IV ONE (15:15)
--- NOTE | 2021-06-04 15:31 | Diagnostic Imaging Report ---
EXAMINATION: Chest 1 view. HISTORY: Fever. COMPARISON: 05/04/2020. FINDINGS: Heart size and pulmonary vasculature are normal. Mild interstitial opacities in the lung bases, unchanged. No pleural effusion or pneumothorax. The osseous structures are intact. Left-sided portacatheter is present. IMPRESSION: No acute radiographic abnormality in the chest. Dictated by: Dictated on workstation # [id number]
[2021-06-04 16:10] LABS: BASOPHILS % (AUTO) 0 % (0-10); EOSINOPHILS # (AUTO) 0.2 10^3/uL (0.0-0.3); EOSINOPHILS % (AUTO) 6 % (0-10); HEMATOCRIT 28 % (40-54); HEMOGLOBIN 9.3 g/dL (13.3-17.7); LYMPHOCYTES # (AUTO) 0.3 10^3/uL (1.0-4.0); LYMPHOCYTES % (AUTO) 12 % (12-44); MEAN CORPUSCULAR HEMOGLOBIN 37 pg (25-34); MEAN CORPUSCULAR HGB CONC 33 g/dL (32-36); MEAN CORPUSCULAR VOLUME 114 fL (80-99); MEAN PLATELET VOLUME 10.4 fL (9.0-12.2); MONOCYTES # (AUTO) 0.2 10^3/uL (0.0-1.0); MONOCYTES % (AUTO) 6 % (0-12); NEUTROPHILS # (AUTO) 1.9 10^3/uL (1.8-7.8); NEUTROPHILS % (AUTO) 74 % (42-75); PLATELET COUNT 161 10^3/uL (130-400); WHITE BLOOD COUNT 2.5 10^3/uL (4.3-11.0)
[2021-06-04 16:20] LABS: INR 4.1 (0.8-1.4); PROTHROMBIN TIME PATIENT 40.4 SEC (12.2-14.7)
[2021-06-04 16:26] LABS: ALBUMIN 3.5 GM/DL (3.2-4.5); CHLORIDE 105 MMOL/L (98-107); POTASSIUM 4.7 MMOL/L (3.6-5.0); SODIUM 139 MMOL/L (135-145)
[2021-06-04 16:27] LABS: CALCIUM 8.5 MG/DL (8.5-10.1)
[2021-06-04 16:28] LABS: GLUCOSE 109 MG/DL (70-105)
[2021-06-04 16:29] LABS: TOTAL PROTEIN 6.5 GM/DL (6.4-8.2)
[2021-06-04 16:30] LABS: BILIRUBIN,TOTAL 0.3 MG/DL (0.1-1.0); CARBON DIOXIDE 21 MMOL/L (21-32)
[2021-06-04 16:32] LABS: ALKALINE PHOSPHATASE 57 U/L (40-136); CREATININE SERUM 3.14 MG/DL (0.60-1.30); GFR ESTIMATED 20
[2021-06-04 16:33] LABS: BUN/CREATININE RATIO 14
[2021-06-04 16:35] LABS: ALANINE AMINOTRANSFERASE < 6 U/L (0-55); MAGNESIUM 2.2 MG/DL (1.6-2.4)
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
--- NOTE | 2021-06-04 18:09 | Diagnostic Imaging Report ---
PROCEDURE: CT head without contrast. TECHNIQUE: Multiple contiguous axial images were obtained through the brain without the use of intravenous contrast. Auto Exposure Controls were utilized during the CT exam to meet ALARA standards for radiation dose reduction. DATE: June 04, 2021. COMPARISON: CT head March 10, 2018. INDICATION: 75-year-old male, altered mental status. History of colon cancer. FINDINGS: There are left-sided craniotomy changes. There is no identified skull fracture. The visualized portions of the paranasal sinuses, mastoid air cells and middle ears are well aerated. There is proportional prominence of the ventricles and additional CSF spaces consistent with moderate to severe cerebral volume loss. There is no identified abnormal extra-axial fluid collection. There is no evidence of acute intracranial hemorrhage. There are areas of low-attenuation in the periventricular and subcortical white matter which are nonspecific but most likely relate to findings of chronic small vessel ischemic disease. IMPRESSION: 1. No identified acute intracranial abnormality. 2. Moderate to severe cerebral volume loss with probable findings of chronic small vessel ischemic disease. 3. There are left-sided craniotomy changes noted. Dictated by: Dictated on workstation # [id number]
--- NOTE | 2021-06-04 18:33 | Diagnostic Imaging Report ---
PROCEDURE: CT chest, abdomen, and pelvis without contrast. TECHNIQUE: Multiple contiguous axial images were obtained through the chest, abdomen, and pelvis without the use of intravenous contrast. Auto Exposure Controls were utilized during the CT exam to meet ALARA standards for radiation dose reduction. DATE: June 04, 2021. INDICATION: 75-year-old male, altered mental status. History of colon cancer. COMPARISON: CT chest, abdomen and pelvis February 13, 2019. FINDINGS: There are upper lobe predominant findings of emphysema. There is multifocal nodularity in the right lower lobe which is new since February 13, 2019. Some of the nodularity has an almost tree-in-bud type appearance. The nodules are fairly prominent in size however with one area of nodularity in the right lower lobe measuring up to 2.1 cm in size on axial image 42. There are very mild linear opacities in the left lower lobe consistent with mild atelectasis and/or scarring. There is no additional separate pulmonary nodule. There is no pneumothorax. There is no pleural effusion. Heart is not enlarged. There is no pericardial effusion. There is no identified abnormally enlarged mediastinal or axillary lymph node which meets CT size criteria for adenopathy. There is limitation for evaluation of the abdominal parenchymal organs, detection of metastatic disease and evaluation of the vasculature given the lack of intravenous contrast. The liver is unremarkable in size and contour. There is cholelithiasis and mild gallbladder distention without evidence of acute cholecystitis. There is no identified intrahepatic or extrahepatic bile duct dilation. The main pancreatic duct is not grossly dilated. Limited noncontrast assessment of the pancreatic parenchyma is unremarkable. The spleen is normal in size. There is nonspecific thickening of the adrenal glands. There is a low-attenuation left renal mass on axial image 69 measuring 4.3 cm in size with internal attenuation diagnostic for a benign cyst. The urinary collecting systems are not distended. There is no identified renal or ureteral stone. The urinary bladder is unremarkable. Sutures at the level of the distal sigmoid colon. The intestinal tract is not distended. There are additional sutures associated with bowel in the right lower quadrant. There is no free intraperitoneal air. There is no drainable fluid collection. There is no sizable volume ascites. There are atherosclerotic calcifications. There is an infrarenal abdominal aortic aneurysm which measures up to 4.6 x 3.8 cm in diameter. On February 13, 2019, this previously measured smaller in size at 3.4 x 3.1 cm in diameter. 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 There is a retroaortic left renal vein. There is no identified abnormally enlarged lymph node in the abdomen or pelvis specifically meeting CT size criteria for adenopathy. There are multilevel degenerative changes of the spine. There is glenohumeral arthritis. There is no identified bone lesion concerning for a bone metastasis. There is avascular necrosis of the left femoral head without evidence of subchondral collapse. IMPRESSION: 1. Multifocal adjacent nodularity in the right lower lobe. This may potentially relate to infection or aspiration. This would be a less common appearance for metastatic disease. 2. Infrarenal abdominal aortic aneurysm measuring 4.6 x 3.8 cm in size which is substantially increased in size since February 13, 2019. 3. No otherwise identified acute abnormality in the abdomen or pelvis. Dictated by: Dictated on workstation # [id number]
[2021-06-04 18:54] LABS: BILIRUBIN,URINE NEGATIVE (NEGATIVE); CLARITY,URINE SL CLOUDY; COLOR,URINE YELLOW; GLUCOSE, URINE (UA) NEGATIVE (NEGATIVE); KETONES,URINE NEGATIVE (NEGATIVE); LEUKOCYTE ESTERASE ,URINE NEGATIVE (NEGATIVE); NITRITE,URINE NEGATIVE (NEGATIVE); PROTEIN,URINE 1+ (NEGATIVE)
[2021-06-04 19:00] LABS: BACTERIA,URINE NEGATIVE /HPF; WBC,URINE RARE /HPF
[2021-06-04] MEDS ORDERED: cefTRIAXone 1 GM PRE-MIX 50 ML IV ONE ×2 (19:15)
[2021-06-04] MEDS ORDERED: AZITHROMYCIN INJECTION 500 MG/5 ML VIAL ONE (19:15)
[2021-06-04] MEDS ORDERED: NS (IVPB) 250 ML ONE (19:15)
[2021-06-04] MEDS ORDERED: AZITHROMYCIN INJECTION 500 MG in NS (IVPB) 250 ML IV ONE (19:15)
[2021-06-05] VITALS (11 sets, daily range): BP systolic 124–163; BP diastolic 69–98
[2021-06-05] MEDS ORDERED: RT-ALBUTEROL/IPRATROPIUM 3 ML (DUONEB) VIAL INH PRN (00:45)
[2021-06-05] MEDS ORDERED: LACTATED RINGERS 1,000 ML IV ONE ×2 (01:19→02:14)
[2021-06-05] MEDS ORDERED: NS IV 1000 ML 1,000 ML IV SCH ×2 (01:45→09:45)
[2021-06-05] MEDS: RT-ALBUTEROL/IPRATROPIUM 3 ML (DUONEB) VIAL INH SCH ×6 (02:29→22:19)
[2021-06-05] MEDS: LACTATED RINGERS 1,000 ML IV SCH ×4 (03:05→17:08)
[2021-06-05] MEDS: MICONAZOLE 2% POWDER (DESENEX AF) 90 GM TOP SCH ×2 (09:11→20:59)
[2021-06-05 10:27] LABS: BASOPHILS % (AUTO) 0 % (0-10); EOSINOPHILS # (AUTO) 0.2 10^3/uL (0.0-0.3); EOSINOPHILS % (AUTO) 6 % (0-10); HEMATOCRIT 27 % (40-54); LYMPHOCYTES # (AUTO) 0.2 10^3/uL (1.0-4.0); LYMPHOCYTES % (AUTO) 8 % (12-44); MEAN CORPUSCULAR HEMOGLOBIN 38 pg (25-34); MEAN CORPUSCULAR HGB CONC 34 g/dL (32-36); MEAN CORPUSCULAR VOLUME 112 fL (80-99); MEAN PLATELET VOLUME 10.5 fL (9.0-12.2); MONOCYTES # (AUTO) 0.1 10^3/uL (0.0-1.0); MONOCYTES % (AUTO) 5 % (0-12); NEUTROPHILS # (AUTO) 2.2 10^3/uL (1.8-7.8); NEUTROPHILS % (AUTO) 81 % (42-75); PLATELET COUNT 157 10^3/uL (130-400); WHITE BLOOD COUNT 2.7 10^3/uL (4.3-11.0)
[2021-06-05 10:32] LABS: SMEAR SCAN COMMENT YES
[2021-06-05 10:42] LABS: CALCIUM 8.6 MG/DL (8.5-10.1); CREATININE SERUM 2.55 MG/DL (0.60-1.30); POTASSIUM 4.4 MMOL/L (3.6-5.0)
[2021-06-05] MEDS ORDERED: NICOTINE 21 MG (NICODERM) PATCH TD ONE (11:00)
[2021-06-05] MEDS: SINEMET 25/100 (CARBIDOPA/LEVODOPA) TAB PO SCH ×4 (11:44→20:59)
--- NOTE | 2021-06-05 12:05 | Physical Therapy Evaluation ---
PT Evaluation-General Medical Diagnosis Admission Date Jun 04, 2021 at 19:25 Medical Diagnosis: sepsis/pneumonia Onset Date: Jun 04, 2021 Therapy Diagnosis Therapy Diagnosis: debility/weakness Height/Weight Height (Feet): 6 Height (Inches): 0.00 Weight (Pounds): 185 Weight (Ounces): 0.0 Precautions Precautions/Isolations: Fall Prevention, Standard Precautions Referral Physician: Moe Reason for Referral: Evaluation/Treatment Medical History Pertinent Medical History: Atrial Fib, COPD, Dementia, HTN, Parkinson's, Renal Insufficiency, Smoking Additional Medical History stage 4 colon cancer Current History ER secondary to genital pain Reviewed History: Yes Social History Home: Single Level Current Living Status: Spouse Prior Prior Level of Function SCALE: Activities may be completed with or without assistive devices. 0-Exqhqrcifc-lgfzumz completes the activity by him/herself with no assistance from a helper. 5-Set-up or Clean-up Assistance-helper sets up or cleans up; patient completes activity. [place] assists only prior to or following the activity. 4-Supervision or Touching Assistance-helper provides verbal cues and/or touching /steadying and/or contact guard assistance as patient completes activity. Assistance may be provided throughout the activity or intermittently. 3-Partial/Moderate Assistance-helper does LESS THAN HALF the effort. [place] lifts, holds or supports trunk or limbs, but provides less than half the effort. 2-Substantial/Maximal Assistance-helper does MORE THAN HALF the effort. [place] lifts or holds trunk or limbs and provides more than half the effort. 9-Mxzowtcpq-rxdnyb does ALL the effort. Patient does none of the effort to complete the activity. Or, the assistance of 2 or more helpers is required for the patient to complete the activity. If activity was not attempted, code reason: 7-Patient Refused. 9-Not Applicable-not attempted and the patient did not perform the activity before the current illness, exacerbation or injury. 10-Not Attempted due to Environmental Limitations-(lack of equipment, weather restraints, etc.). 88-Not Attempted due to Medical Conditions or Safety Concerns. Bed Mobility: 4 Transfers (B,C,W/C): 4 Gait: 4 Indoor Mobility (Ambulation): Needed Some Help Prior Devices Use: Walker PT Evaluation-Current Subjective Patient and spouse agree to PT. Objective Patient Orientation: Person Attachments: Irvin Catheter ROM/Strength ROM Lower Extremities bilateral LE WFL Strength Lower Extremities 3/5 grossly bilateral LE Integumentary/Posture Bowel Incontinence: Yes Bladder Incontinence: Irvin Cath Posture bilateral knee and trunk flexed posture Neuromuscular (Tone, Coordination, Reflexes) Ataxic/Parkinson's Sensory Vision: Functional Hearing: Functional Transfers Sit to Lying (QC): 2 Lying to Sitting/Side of Bed(Q: 2 Sit to Stand (QC): 2 Chair/Rnt-bi-Qvsia Xfer(QC): 2 severe retropulsion Gait Mode of Locomotion: Walk Anticipated Mode of Locomotion: Walk Walk 10 feet (QC): 3 Walk 50 ft with 2 Turns(QC): 3 Walk 150 ft (QC): 3 Distance: 175' Gait Assistive Device: FWW Comments/Gait Description flexed knee and trunk posture with NBOS and shuffle gait sequence Balance Sitting Static: Fair Sitting Dynamic: Fair Standing Static: Fair Standing Dynamic: Fair (Fair-) Assessment/Needs 75 y.o. male, will benefit from skilled PT to address functional strength and mobility to improve current LOF to safely return to home with spouse at maximum LOF. Rehab Potential: Guarded PT Shelter Goals Charge Operator Goals PT Shelter Goals Time Frame: Jun 17, 2021 Roll Left & Right (QC): 4 Sit to Lying (QC): 4 Lying-Sitting on Side/Bed(QC): 4 Sit to Stand (QC): 4 Chair/Olu-ra-Lzjpx Xfer(QC): 4 Toilet Transfer (QC): 4 Walk 10 feet (QC): 4 Walk 50ft with 2 Turns (QC): 4 Walk 150 ft (QC): 4 PT Plan Problem List Problem List: Activity Tolerance, Functional Strength, Safety, Balance, Gait, Transfer, Bed Mobility Treatment/Plan Treatment Plan: Continue Plan of Care Treatment Plan: Bed Mobility, Education, Functional Activity Hong, Functional Strength, Gait, Safety, Therapeutic Exercise, Transfers Treatment Duration: Jun 17, 2021 Frequency: 6 times per week Estimated Hrs Per Day: .5 hour per day Patient and/or Family Agrees t: Yes Time/GCodes Time In: 1125 Time Out: 1141 Total Billed Treatment Time: 16 Total Billed Treatment 1 visit EVModC 16 min NATHANAEL TREVINO PT Jun 05, 2021 12:05
[2021-06-05] MEDS ORDERED: PIPERACILLIN SODIUM/TAZOBACTAM 4.5 GM in NS (IVPB) 100 ML IV NR (14:00)
--- NOTE | 2021-06-05 14:13 | Occupational Therapy Eval ---
OT Evaluation-General/PLF Medical Diagnosis Admission Date Jun 04, 2021 at 19:25 Medical Diagnosis: sepsis/pneumonia Onset Date: Jun 04, 2021 Therapy Diagnosis Therapy Diagnosis: decreased ADL status Height/Weight Height (Feet): 6 Height (Inches): 0.00 Weight (Pounds): 185 Weight (Ounces): 0.0 Precautions Precautions/Isolations: Fall Prevention, Standard Precautions Referral Physician: Moe Referral Reason: Evaluation/Treatment Medical History Pertinent Medical History: Atrial Fib, COPD, Dementia, HTN, Parkinson's, Renal Insufficiency, Smoking Additional Medical History COPD, AFIB, DVT, HTN, CVA, dementia, TIA, GERD, arthritis, skin cancer, stage 4 colon cancer Current History ED due to increased swelling in groin Social History Home: Single Level Current Living Status: Spouse ADL-Prior Level of Function SCALE: Activities may be completed with or without assistive devices. 8-Dkxzadweoo-xywaxgn completes the activity by him/herself with no assistance from a helper. 5-Set-up or Clean-up Assistance-helper sets up or cleans up; patient completes activity. [place] assists only prior to or following the activity. 4-Supervision or Touching Assistance-helper provides verbal cues and/or touching/steadying and/or contact guard assistance as patient completes activity. Assistance may be provided throughout the activity or intermittently. 3-Partial/Moderate Assistance-helper does LESS THAN HALF the effort. [place] lif ts, holds or supports trunk or limbs, but provides less than half the effort. 2-Substantial/Maximal Assistance-helper does MORE THAN HALF the effort. [place] lifts or holds trunk or limbs and provides more than half the effort. 7-Bitdewnrw-ytkebv does ALL the effort. Patient does none of the effort to complete the activity. Or, the assistance of 2 or more helpers is required for the patient to complete the activity. If activity was not attempted, code reason: 7-Patient Refused. 9-Not Applicable-not attempted and the patient did not perform the activity before the current illness, exacerbation or injury. 10-Not Attempted due to Environmental Limitations-(lack of equipment, weather restraints, etc.). 88-Not Attempted due to Medical Conditions or Safety Concerns. ADL PLOF Comments Pt required assistance wtih ADLs and PLOF, he lives with his and his grandson who recently moved in. Pt's grandson assists pt in transfers and walking using a walker. His assists with all ADLs, total assist showering, assistance cooking and cleaning, and assistance with dressing. Pt has a walk in shower with a SC. Self Care: Needed Some Help DME/Equipment: Bath Chair, Shower OT Current Status Subjective Pt seated in recliner, family member present. Pt agreeable to OT tx. Mental Status/Objective Patient Orientation: Person, Place, Situation Attachments: Irvin Catheter, Oxygen Current Hand Dominance: Right Upper Extremity ROM WFL, BUE shoulder flexion to approx 140 degrees Upper Extremity Coordination WFL Upper Extremity Strength grossly 3/5 ADL-Treatment Eating (QC): 5 (per pt report and clincial judgment) Other Treatments Pt up in recliner, agreeable to OT Tx. Pt provided information about PLOF and home set up, and participated in UE screen. At PLOF, pt required assistance with ADLs and transfers. In order to increase BUE Strength and activity tolerance, pt completed x10 reps each of the following exercises, rest breaks between: shoulder flexion, elbow flexion/extension and wrist flexion/extension. Pt instructed to complete exercises throughout the day, increasing reps as tolerated. Post tx, pt up in recliner, call light inr each and all needs met. Education OT Patient Education: Correct positioning, Energy conservation, Exercise program, Modified ADL techniques, Progress toward Goal/Update tx plan, Purpose of tx/functional activities, Rehab process Teaching Recipient: Patient Teaching Methods: Discussion Response to Teaching: Verbalize Understanding OT Mcc Goals Mcc Goals Time Frame: Jun 16, 2021 Eating (QC): 5 Oral Hygiene (QC): 4 Toileting Hygiene (QC): 3 Shower/Bathe Self (QC): 3 Upper Body Dressing (QC): 4 Lower Body Dressing (QC): 3 On/Off Footwear (QC): 2 Additional Goals: 1-Demonstrate ADL Tasks, 2-Verbalize Understanding, 3- ImproveStrength/Hong 1=Demonstrate adherence to instructed precautions during ADL tasks. 2=Patient will verbalize/demonstrate understanding of assistive devices/modifications for ADL. 3=Patient will improve strength/tolerance for activity to enable patient to perform ADL's. OT Education/Plan Problem List/Assessment Assessment: Decreased Activ Tolerance, Decreased UE Strength, Impaired Funct Balance, Impaired I ADL's, Impaired Self-Care Skills Discharge Recommendations Plan/Recommendations: Continue POC Treatment Plan/Plan of Care Patient would benefit from OT for education, treatment and training to promote independence in ADL's, mobility, safety and/or upper extremity function for ADL's. Plan of Care: ADL Retraining, Functional Mobility, UE Funct Exercise/Act Treatment Duration: Jun 16, 2021 Frequency: 3 times per week (3-5 times per week) Estimated Hrs Per Day: .25 hour per day Rehab Potential: Guarded Time/GCodes Start Time: 13:25 Stop Time: 13:37 Total Time Billed (hr/min): 12 Billed Treatment Time 1, ANUP REID OT Jun 05, 2021 14:13
[2021-06-05] MEDS ORDERED: FLD5TCR PO (15:03)
[2021-06-05] MEDS ORDERED: POTA-51 PO (15:06)
[2021-06-05] MEDS ORDERED: LISI10TA25 PO (15:06)
[2021-06-05] MEDS ORDERED: RISP0.5T65 PO (15:08)
[2021-06-05] MEDS ORDERED: DIPH1TAB PO (15:09)
[2021-06-05] MEDS ORDERED: HYDR-3924 PO (15:10)
[2021-06-05] MEDS ORDERED: BUPR150T14 PO (15:10)
[2021-06-05] MEDS ORDERED: NFCAPE500T PO (15:15)
[2021-06-05] MEDS ORDERED: WARF-48 PO (15:15)
[2021-06-05] MEDS ORDERED: ONDA-105 PO (15:15)
[2021-06-05] MEDS ORDERED: FURO20TA4 PO (15:15)
[2021-06-05] MEDS ORDERED: DICY10CA12 PO (15:15)
[2021-06-05] MEDS ORDERED: TMSL.4C PO (15:15)
[2021-06-05] MEDS ORDERED: ALPR2TAB PO (15:16)
[2021-06-05] MEDS ORDERED: cefTRIAXone 1 GM PRE-MIX 50 ML IV SCH (21:00)
[2021-06-05] MEDS: PIPERACILLIN SODIUM/TAZOBACTAM 4.5 GM in NS (IVPB) 100 ML IV SCH (21:00)
[2021-06-05] MEDS ORDERED: AZITHROMYCIN INJECTION 500 MG in NS (IVPB) 250 ML IV SCH (21:00)
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
[2021-06-05] MEDS ORDERED: ALPRAZolam 0.5 MG (XANAX) TAB PO PRN (22:15)
[2021-06-05] MEDS ORDERED: TAMSULOSIN 0.4 MG (FLOMAX) CAP PO SCH (22:30)
[2021-06-05] MEDS: DIVALPROEX EXT RELEASE 250 MG (DEPAKOTE ER) TAB PO SCH (22:46)
[2021-06-05] MEDS: DICYCLOMINE 10 MG (BENTYL) CAP PO SCH (22:46)
[2021-06-05] MEDS: buPROPion SR 150 MG (WELLBUTRIN SR) TAB PO SCH (22:46)
[2021-06-05] MEDS: SERTRALINE 50 MG (ZOLOFT) TABLET PO SCH (22:46)
[2021-06-05] MEDS: GEMFIBROZIL 600 MG (LOPID) TAB PO SCH (22:46)
[2021-06-05] MEDS: risperiDONE 0.5 MG (RisperDAL) TABLET PO SCH (22:46)
[2021-06-05] MEDS: hydrALAZINE (APRESOLINE) 25 MG TAB PO SCH (22:57)
[2021-06-05] MEDS: SERTRALINE 100 MG (ZOLOFT) TAB PO SCH (22:57)
[2021-06-06] VITALS: BP 135/60
[2021-06-06] MEDS: RT-ALBUTEROL/IPRATROPIUM 3 ML (DUONEB) VIAL INH SCH ×4 (02:23→14:58)
[2021-06-06 04:00] VITALS: BP 120/49
[2021-06-06] MEDS ORDERED: LEVOTHYROXINE 112 MCG (LEVOTHROID) TAB ONE (04:51)
[2021-06-06] MEDS: PIPERACILLIN SODIUM/TAZOBACTAM 4.5 GM in NS (IVPB) 100 ML IV SCH ×2 (05:19→11:59)
[2021-06-06] MEDS: LACTATED RINGERS 1,000 ML IV SCH ×2 (05:21→14:42)
[2021-06-06 06:08] LABS: BASOPHILS % (AUTO) 1 % (0-10); HEMOGLOBIN 7.9 g/dL (13.3-17.7)
[2021-06-06 06:11] LABS: EOSINOPHILS # (AUTO) 0.2 10^3/uL (0.0-0.3); EOSINOPHILS % (AUTO) 9 % (0-10); HEMATOCRIT 24 % (40-54); LYMPHOCYTES # (AUTO) 0.1 10^3/uL (1.0-4.0); LYMPHOCYTES % (AUTO) 6 % (12-44); MEAN CORPUSCULAR HEMOGLOBIN 37 pg (25-34); MEAN CORPUSCULAR HGB CONC 34 g/dL (32-36); MEAN CORPUSCULAR VOLUME 111 fL (80-99); MEAN PLATELET VOLUME 10.6 fL (9.0-12.2); MONOCYTES # (AUTO) 0.1 10^3/uL (0.0-1.0); MONOCYTES % (AUTO) 5 % (0-12); NEUTROPHILS # (AUTO) 1.6 10^3/uL (1.8-7.8); NEUTROPHILS % (AUTO) 78 % (42-75); PLATELET COUNT 132 10^3/uL (130-400)
[2021-06-06 06:23] LABS: INR 3.7 (0.8-1.4); PROTHROMBIN TIME PATIENT 37.3 SEC (12.2-14.7)
[2021-06-06 06:27] LABS: ALBUMIN 2.8 GM/DL (3.2-4.5)
[2021-06-06 06:28] LABS: CHLORIDE 106 MMOL/L (98-107); POTASSIUM 3.8 MMOL/L (3.6-5.0); SODIUM 136 MMOL/L (135-145)
[2021-06-06 06:29] LABS: CALCIUM 8.1 MG/DL (8.5-10.1)
[2021-06-06 06:30] LABS: GLUCOSE 102 MG/DL (70-105); TOTAL PROTEIN 5.3 GM/DL (6.4-8.2)
[2021-06-06 06:31] LABS: CARBON DIOXIDE 19 MMOL/L (21-32)
[2021-06-06 06:32] LABS: BILIRUBIN,TOTAL 0.4 MG/DL (0.1-1.0)
[2021-06-06 06:33] LABS: ALKALINE PHOSPHATASE 49 U/L (40-136)
[2021-06-06 06:34] LABS: CREATININE SERUM 2.53 MG/DL (0.60-1.30); GFR ESTIMATED 25
[2021-06-06 06:35] LABS: BUN/CREATININE RATIO 14
[2021-06-06 06:36] LABS: ALANINE AMINOTRANSFERASE < 6 U/L (0-55)
[2021-06-06] MEDS ORDERED: LEVOTHYROXINE 112 MCG (LEVOTHROID) TAB PO SCH (07:00)
[2021-06-06 07:48] VITALS: BP 117/52
[2021-06-06] MEDS ORDERED: NICOTINE PATCH REMOVAL TP SCH (08:59)
[2021-06-06] MEDS ORDERED: NICOTINE 21 MG (NICODERM) PATCH TD SCH (09:00)
[2021-06-06] MEDS ORDERED: warFARin 5 MG (COUMADIN) TAB PO SCH ×2 (09:00→18:00)
[2021-06-06] MEDS ORDERED: CAPECITABINE 2000 MG PO SCH (09:00)
[2021-06-06] MEDS ORDERED: ALPRAZOLAM 2 MG PO SCH (09:00)
[2021-06-06] MEDS ORDERED: amLODIPine 5 MG (NORVASC) TAB PO SCH (09:00)
[2021-06-06] MEDS ORDERED: lisINopril 10 MG (PRINIVIL) TABLET PO SCH (09:00)
[2021-06-06] MEDS: GEMFIBROZIL 600 MG (LOPID) TAB PO SCH (09:17)
[2021-06-06] MEDS: hydrALAZINE (APRESOLINE) 25 MG TAB PO SCH (09:17)
[2021-06-06] MEDS: buPROPion SR 150 MG (WELLBUTRIN SR) TAB PO SCH (09:18)
[2021-06-06] MEDS: risperiDONE 0.5 MG (RisperDAL) TABLET PO SCH (09:18)
[2021-06-06] MEDS: SERTRALINE 50 MG (ZOLOFT) TABLET PO SCH (09:18)
[2021-06-06] MEDS: DICYCLOMINE 10 MG (BENTYL) CAP PO SCH ×2 (09:19→12:01)
[2021-06-06] MEDS: SINEMET 25/100 (CARBIDOPA/LEVODOPA) TAB PO SCH ×2 (09:19→12:01)
[2021-06-06] MEDS: SERTRALINE 100 MG (ZOLOFT) TAB PO SCH (09:19)
[2021-06-06] MEDS: DIVALPROEX EXT RELEASE 250 MG (DEPAKOTE ER) TAB PO SCH (09:19)
[2021-06-06] MEDS: MICONAZOLE 2% POWDER (DESENEX AF) 90 GM TOP SCH (09:21)
--- NOTE | 2021-06-06 10:05 | Physical Therapy Daily Note ---
PT Daily Note-Current Subjective Patient agrees to PT. Mental Status Patient Orientation: Normal For Age Attachments: Oxygen, Irvin Catheter, IV Transfers SCALE: Activities may be completed with or without assistive devices. 0-Ixwlztycqs-ztfeaui completes the activity by him/herself with no assistance from a helper. 5-Set-up or Clean-up Assistance-helper sets up or cleans up; patient completes activity. [place] assists only prior to or following the activity. 4-Supervision or Touching Assistance-helper provides verbal cues and/or touching/steadying and/or contact guard assistance as patient completes activity. Assistance may be provided throughout the activity or intermittently. 3-Partial/Moderate Assistance-helper does LESS THAN HALF the effort. [place] lifts, holds or supports trunk or limbs, but provides less than half the effort. 2-Substantial/Maximal Assistance-helper does MORE THAN HALF the effort. [place] lifts or holds trunk or limbs and provides more than half the effort. 0-Guuusekct-hzdtdy does ALL the effort. Patient does none of the effort to complete the activity. Or, the assistance of 2 or more helpers is required for the patient to complete the activity. If activity was not attempted, code reason: 7-Patient Refused. 9-Not Applicable-not attempted and the patient did not perform the activity before the current illness, exacerbation or injury. 10-Not Attempted due to Environmental Limitations-(lack of equipment, weather restraints, etc.). 88-Not Attempted due to Medical Conditions or Safety Concerns. Lying to Sitting/Side of Bed(Q: 4 Sit to Stand (QC): 3 Chair/Oeg-on-Pgnyx Xfer(QC): 3 (patient impulsive to sit unsafely after gait training) Gait Training Does the Patient Walk?: Yes Distance: 250' Walk 10 feet (QC): 3 Walk 50 ft with 2 Turns(QC): 3 Walk 150 ft (QC): 3 Gait Assistive Device: FWW noted left lean and retropulsive with 50% self correct/NBOS and flexed knee/trunk posture Exercises Seated Therapy Exercises: Ankle pumps, Long arc quads Seated Reps: 15 Assessment Patient tolerated treatment well and is up in recliner with chair alarm activated. Patient reports he desires to return to home soon. PT Solidworks Drafter Goals [place] Drafter Goals PT [place] Drafter Goals Time Frame: Jun 17, 2021 Roll Left & Right (QC): 4 Sit to Lying (QC): 4 Lying-Sitting on Side/Bed(QC): 4 Sit to Stand (QC): 4 Chair/Kax-yg-Oevuf Xfer(QC): 4 Toilet Transfer (QC): 4 Walk 10 feet (QC): 4 Walk 50ft with 2 Turns (QC): 4 Walk 150 ft (QC): 4 PT Plan Treatment/Plan Treatment Plan: Continue Plan of Care Treatment Plan: Bed Mobility, Education, Functional Activity Hong, Functional Strength, Gait, Safety, Therapeutic Exercise, Transfers Treatment Duration: Jun 17, 2021 Frequency: 6 times per week Estimated Hrs Per Day: .5 hour per day Patient and/or Family Agrees t: Yes Time/GCodes Time In: 841 Time Out: 852 Total Billed Treatment Time: 11 Total Billed Treatment 1 visit GT 11 min NATHANAEL TREVINO PT Jun 06, 2021 10:05
--- NOTE | 2021-06-06 10:19 | Occupational Ther Daily Note ---
OT Current Status-Daily Note Subjective Pt sitting in recliner. Pt agreeable to OT tx. Mental Status/Objective Patient Orientation: Person, Place, Situation Attachments: IV ADL-Treatment Therapy Code Descriptions/Definitions Functional [place] Measure: 0=Not Assessed/NA 4=Minimal Assistance 1=Total Assistance 5=Supervision or Setup 2=Maximal Assistance 6=Modified [place] 3=Moderate Assistance 7=Complete IndependenceSCALE: Activities may be completed with or without assistive devices. 6-[id number] completes the activity by him/herself with no assistance from a helper. 5-Set-up or Clean-up Assistance-helper sets up or cleans up; patient completes activity. [place] assists only prior to or following the activity. 4-Supervision or Touching Assistance-helper provides verbal cues and/or touching /steadying and/or contact guard assistance as patient completes activity. Assistance may be provided throughout the activity or intermittently. 3-Partial/Moderate Assistance-helper does LESS THAN HALF the effort. [place] lifts, holds or supports trunk or limbs, but provides less than half the effort. 2-Substantial/Maximal Assistance-helper does MORE THAN HALF the effort. [place] lifts or holds trunk or limbs and provides more than half the effort. 6-[id number] does ALL the effort. Patient does none of the effort to complete the activity. Or, the assistance of 2 or more helpers is required for the patient to complete the activity. If activity was not attempted, code reason: 7-Patient Refused. 9-Not Applicable-not attempted and the patient did not perform the activity before the current illness, exacerbation or injury. 10-Not Attempted due to Environmental Limitations-(lack of equipment, weather restraints, etc.). 88-Not Attempted due to Medical Conditions or Safety Concerns. Other Treatment Pt sitting in recliner. Pt completed 2x10 reps of shoulder flexion, elbow flexion/extension and shoulder abduction. Pt needed min rest breaks after completing 10 reps, before starting the next 10. Pt left in recliner, with call light in reach and all needs met. Education OT Patient Education: Correct positioning, Energy conservation, Exercise program, Progress toward Goal/Update tx plan, Purpose of tx/functional activities Teaching Recipient: Patient, Significant Other Teaching Methods: Demonstration, Discussion Response to Teaching: Verbalize Understanding, Return Demonstration OT Residential Goals Supervisor Warping Department Goals Time Frame: Jun 16, 2021 Eating (QC): 5 Oral Hygiene (QC): 4 Toileting Hygiene (QC): 3 Shower/Bathe Self (QC): 3 Upper Body Dressing (QC): 4 Lower Body Dressing (QC): 3 On/Off Footwear (QC): 2 Additional Goals: 1-Demonstrate ADL Tasks, 2-Verbalize Understanding, 3- ImproveStrength/Hong 1=Demonstrate adherence to instructed precautions during ADL tasks. 2=Patient will verbalize/demonstrate understanding of assistive devices/modifications for ADL. 3=Patient will improve strength/tolerance for activity to enable patient to perform ADL's. OT Education/Plan Problem List/Assessment Assessment: Decreased Activ Tolerance, Decreased UE Strength, Impaired I ADL's, Impaired Self-Care Skills Discharge Recommendations Plan/Recommendations: Continue POC Treatment Plan/Plan of Care Patient would benefit from OT for education, treatment and training to promote independence in ADL's, mobility, safety and/or upper extremity function for ADL's. Plan of Care: ADL Retraining, Functional Mobility, UE Funct Exercise/Act Treatment Duration: Jun 16, 2021 Frequency: 3 times per week (3-5 times per week) Estimated Hrs Per Day: .25 hour per day Rehab Potential: Guarded Time/GCodes Start Time: 10:03 Stop Time: 10:12 Total Time Billed (hr/min): 9 Billed Treatment Time 1, EX (9) ANUP FLORIAN OT Jun 06, 2021 10:19
[2021-06-06 11:15] VITALS: BP 113/63
[2021-06-06] MEDS ORDERED: CEFD300C3 PO (11:59)
[2021-06-06] MEDS ORDERED: MICO90PO TOP (11:59)
[2021-06-06] MEDS ORDERED: MEGE40TA5 PO (12:01)
--- NOTE | 2021-06-06 12:11 | Discharge Summary ---
Discharge Summary Reconcile Patient Problems Problems Reviewed?: Yes Instructions for Patient Via [facility], Assessment/Instructions Take medications as prescribed. You are being set up with home health care. Follow-up with your primary care physician in a couple weeks. Return with worsening symptoms. 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 His CT on arrival showed an area of infiltrate/nodularity in the right lower lobe. He was treated with IV antibiotics and improved. He also had a fritz infection of his groin. He is incontinent of bowel and bladder. He had not been bathing frequently. He was started on Miconazole. He was set up with home health for ongoing wound care and therapy needs. He also had a supratherapeutic INR and his coumadin was held. He was instructed to resume his coumadin tomorrow. He should have a follow up INR with home health. He should follow up with his PCP in a couple weeks. He was discharged home in stable condition. Labs and Pending Lab Test: Laboratory Tests 06/06/21 05:00: Sodium Level 136, Potassium Level 3.8, Chloride Level 106, Carbon Dioxide Level 19L, Anion Gap 11, Blood Urea Nitrogen 36H, Creatinine 2.53H, Estimat Glomerular Filtration Rate 25, BUN/Creatinine Ratio 14, Glucose Level 102, Calcium Level 8.1L, Corrected Calcium 9.1, Total Bilirubin 0.4, Aspartate Amino Transf (AST/SGOT) 9, Alanine Aminotransferase (ALT/SGPT) < 6, Alkaline Phosphatase 49, Total Protein 5.3L, Albumin 2.8L 06/06/21 05:40: White Blood Count 2.0L, Red Blood Count 2.12L, Hemoglobin 7.9L, Hematocrit 24L, Mean Corpuscular Volume 111H, Mean Corpuscular Hemoglobin 37H, Mean Corpuscular Hemoglobin Concent 34, Red Cell Distribution Width 17.6H, Platelet Count 132, Mean Platelet Volume 10.6, Immature Granulocyte % (Auto) 1, Neutrophils (%) (Auto) 78H, Lymphocytes (%) (Auto) 6L, Monocytes (%) (Auto) 5, Eosinophils (%) ( Auto) 9, Basophils (%) (Auto) 1, Neutrophils # (Auto) 1.6L, Lymphocytes # (Auto) 0.1L, Monocytes # (Auto) 0.1, Eosinophils # (Auto) 0.2, Basophils # (Auto) 0.0, Immature Granulocyte # (Auto) 0.0, Percent Immature Platelet Fraction 3.0, Prothrombin Time 37.3H, INR Comment 3.7H Microbiology 06/04/21 Blood Culture - Preliminary, Resulted No growth Home Meds Active Megestrol Acetate 40 Mg Tablet 200 Mg PO DAILY 30 Days Cefdinir 300 Mg Capsule 300 Mg PO BID 7 Days Lotrimin AF (Miconazole Nitrate) 90 Gm Powder 0 Gm TOP BID 14 Days Reported Alprazolam Xr (Alprazolam) 2 Mg Tab.er.24h 2 Mg PO DAILY 7 Days Flomax (Tamsulosin HCl) 0.4 Mg Cap 0.8 Mg PO HS TAKES 2 (0.04MG) CAPSULE Warfarin Sodium 5 Mg Tablet 5 Mg PO DAILY Dicyclomine HCl 10 Mg Capsule 10 Mg PO QID Xeloda (Capecitabine) 500 Mg Tablet 2,000 Mg PO BID TAKES 4 (500MG) TABLETS BID FOR 14 DAYS, THEN OFF FOR 7 DAYS Ondansetron HCl 4 Mg Tablet 4 Mg PO Q6H PRN Furosemide 20 Mg Tablet 20 Mg PO DAILY Bupropion HCl Sr (Bupropion HCl) 150 Mg Tablet.er 150 Mg PO BID Hydralazine HCl 50 Mg Tablet 50 Mg PO BID Lomotil 2.5-0.025 mg Tablet (Diphenoxylate HCl/Atropine) 1 Each Tablet 1 Each PO DAILY PRN Risperidone 0.5 Mg Tablet 0.5 Mg PO BID Potassium Chloride 20 Meq Tablet.er 20 Meq PO HS Lisinopril 10 Mg Tablet 10 Mg PO DAILY Felodipine ER (Felodipine) 5 Mg Tab.er.24h 5 Mg PO DAILY Alprazolam 0.5 Mg Tablet 0.5 Mg PO BID PRN Sertraline HCl 50 Mg Tablet 50 Mg PO BID Sertraline HCl 100 Mg Tablet 100 Mg PO BID Lovastatin 10 Mg Tablet 10 Mg PO Q48H Divalproex Sodium ER (Divalproex Sodium) 250 Mg Tab.er.24h 250 Mg PO BID Carbidopa-Levodopa 25-100 Tab (Carbidopa/Levodopa) 1 Each Tablet 1 Each PO QID HYDROcodone/APAP 10/325 TABLET (Acetaminophen/Hydrocodone Bitart) 1 Each Tablet 1 Tab PO Q4H PRN Levothyroxine Sodium 112 Mcg Tablet 112 Mcg PO DAILY Gemfibrozil 600 Mg Tablet 600 Mg PO BID Levetiracetam 750 Mg Tablet 750 Mg PO BID Patient Allergies: Coded Allergies: No Known Drug Allergies (Unverified , 08/19/11) Height (Feet): 6 Height (Inches): 0.00 Weight (Pounds): 185 Weight (Ounces): 0.0 Home Health Need/Face to Face Date of Face to Face: Jun 06, 2021 Clinical Findings: Generalized weakness and fatigue, Immune-compromised, Instability, Muscle weakness, Wound infection I have seen Pt [id number]: Yes Discharged To: Home Diagnosis/Conditions: Pneumonia Fritz infection of groin Metastatic colon cancer Problems/Diagnosis/Condition: (1) Fritz rash of groin (2) Primary colon cancer with metastasis to other site (3) Pneumonia Patient is Homebound due to: Shabbir fall risk due to instabilty, Muscle weakness Homebound Status Due to the above stated illness, injury or surgical procedure (medical condition or diagnosis) and associated clinical findings, the patient is homebound because of his/her inability to leave home except with aid of a supportive device and/or person AND leaving the home requires a considerable and taxing effort or is medically contraindicated. Pt req the following assistanc: Aid of another person, [facility] Home Health Nursing Orders Home Health Services Order: Nursing Services, Steward/Stewardess Dining Room-Evaluate & Treat, Physical Therapy-Evaluate & Treat, Wound Care-Eval/Treat Home Health Infusion Therapy Line Start Date: Jun 04, 2021 Home Health Lab Orders Labs (specify type/freq): once PT/INR (times/week): 1 May use PT/INR meter: Yes Planned Date for 1st INR: Jun 09, 2021 Goal INR Range: 2-3 Therapy Orders Therapy Orders: OT (must have SN or PT order), Physical Therapy Therapy Specific Orders: Eval assistive deivces, Teach enviro modifications/safety, Gait training, Increase strength/endurance Certify Stmt I certify that this patient is under my care and that I, a nurse practitioner or a physician; a university administrative assistant working with me, had a face to face encounter that - meets the physician face to face encounter requirements with this patient as dated. Discharge Physical Exam General: Alert, Oriented X3, Other (chronically ill) HEENT: Atraumatic, EOMI, Mucous Memb Moist/[place] Lungs: Clear to Auscultation, Normal Air Movement Heart: Regular Rate, No Murmurs Abdomen: Normal Bowel Sounds, Soft, No Tenderness Extremities: No Edema, No Tenderness/Swelling Skin: Other (fritz infection groin) Neuro: Normal Speech, Other (motor weakness) Psych/Mental Status: Mental Status NL, Mood NL TALHA MOLINA MD Jun 06, 2021 12:10
[2021-06-06 16:38] VITALS: BP 113/63
[2021-06-06] MEDS ORDERED: SIMvastatin 10 MG (ZOCOR) TAB PO SCH (21:00)
== END 2021-06-06 17:00 | disposition home health service (06) | DRG 871 ==
LOC: EDUNIT# 14:02 → ER 14:03 → 4TH 19:25
PROVIDERS: ADMIT Internal Medicine; ATTEND Internal Medicine
DX: A41.9 Sepsis, unspecified organism (principal); J18.9 Pneumonia, unspecified organism; N17.9 Acute kidney failure, unspecified; N18.4 Chronic kidney disease, stage 4 (severe); B37.49 Other urogenital candidiasis; C18.9 Malignant neoplasm of colon, unspecified; C79.89 Secondary malignant neoplasm of other specified sites; D64.9 Anemia, unspecified; R32 Unspecified urinary incontinence; J43.9 Emphysema, unspecified; Z86.718 Personal history of other venous thrombosis and embolism; I48.91 Unspecified atrial fibrillation; E78.00 Pure hypercholesterolemia, unspecified; I12.9 Hypertensive chronic kidney disease with stage 1 through stage 4 chronic kidney disease, or unspecified chronic kidney disease; F03.90 Unspecified dementia, unspecified severity, without behavioral disturbance, psychotic disturbance, mood disturbance, and anxiety; Z86.73 Personal history of transient ischemic attack (TIA), and cerebral infarction without residual deficits; K21.9 Gastro-esophageal reflux disease without esophagitis; K57.90 Diverticulosis of intestine, part unspecified, without perforation or abscess without bleeding; M19.90 Unspecified osteoarthritis, unspecified site; G89.29 Other chronic pain; M54.9 Dorsalgia, unspecified; E03.9 Hypothyroidism, unspecified; Z85.828 Personal history of other malignant neoplasm of skin; F41.9 Anxiety disorder, unspecified; F31.9 Bipolar disorder, unspecified; F60.9 Personality disorder, unspecified; F20.9 Schizophrenia, unspecified; F17.210 Nicotine dependence, cigarettes, uncomplicated; Z79.01 Long term (current) use of anticoagulants; Z92.21 Personal history of antineoplastic chemotherapy; Z92.3 Personal history of irradiation; Z20.822 Contact with and (suspected) exposure to COVID-19
CPT/HCPCS: 36415; 51702; 70450; 71045; 71250; 74176; 80048; 80053; 81000; 83605; 83735; 84145; 85025; 85610; 85730; 87040; 87070; 87077; 87088; 87205; 87636; 94640; 94664; 94760